=== PATIENT | male | born 1950 | race Caucasian/White ===

== ENCOUNTER 2020-09-03 09:05 | Outpatient (REF) | payer MEDICARE, SELFPAY ==
[2020-09-03 12:45] LABS: Alanine Aminotransferase 15 U/L (0-40); Anion Gap 15 (12-20); Aspartate Amino Transferase 17 U/L (5-37); Blood Urea Nitrogen 16 mg/dL (9-16); Calcium 9.3 mg/dL (8.4-10.2); Carbon Dioxide 23 mmol/L (22-29); Chloride 106 mmol/L (96-108); Cholesterol 158 mg/dL; Estimated Glomerular Filt Rate > 60; Glucose Fasting 149 mg/dL (60-99); HDL Cholesterol 39 mg/dL; LDL Cholesterol Calculated 94 mg/dl; Potassium 4.6 mmol/l (3.3-5.1); Sodium 139 mmol/L (135-145); Triglycerides 127 mg/dL
== END 2020-09-03 09:06 | disposition home or self-care (01) ==
LOC: HO.HMGCLDS 09:05
PROVIDERS: PCP Internal Medicine; Visit Provider Internal Medicine
DX: I10 Essential (primary) hypertension (principal); E78.5 Hyperlipidemia, unspecified; E11.65 Type 2 diabetes mellitus with hyperglycemia
CPT/HCPCS: 80048; 80061; 84450; 84460

== ENCOUNTER 2021-01-17 08:46 | Outpatient (REF) | payer MEDICARE, SELFPAY ==
[2021-01-17 11:29] LABS: Estimated Average Glucose 160 mg/dL; Hemoglobin A1c % 7.2 %
[2021-01-17 11:45] LABS: Alanine Aminotransferase 22 U/L (0-40); Anion Gap 17 (12-20); Aspartate Amino Transferase 18 U/L (5-37); Blood Urea Nitrogen 17 mg/dL (9-16); Calcium 8.8 mg/dL (8.4-10.2); Carbon Dioxide 22 mmol/L (22-29); Chloride 111 mmol/L (96-108); Cholesterol 108 mg/dL; Estimated Glomerular Filt Rate > 60; Glucose Fasting 137 mg/dL (60-99); HDL Cholesterol 30 mg/dL; LDL Cholesterol Calculated 54 mg/dl; Potassium 4.5 mmol/L (3.3-5.1); Sodium 145 mmol/L (135-145); Triglycerides 124 mg/dL
[2021-01-17 12:15] LABS: Creatinine Urine 247.51 mg/dL; Microalbum/Creatinine Ratio Ur 10.1 ug/mg cr
== END 2021-01-17 08:47 | disposition home or self-care (01) ==
LOC: HO.HMGCLDS 08:46
PROVIDERS: PCP Internal Medicine; Visit Provider Internal Medicine
DX: E11.9 Type 2 diabetes mellitus without complications (principal); E78.5 Hyperlipidemia, unspecified; I10 Essential (primary) hypertension
CPT/HCPCS: 36415; 80048; 80061; 82043; 83036; 84450; 84460

== ENCOUNTER 2021-08-23 08:07 | Outpatient (REF) | payer MEDICARE, SELFPAY ==
[2021-08-23 11:22] LABS: Estimated Average Glucose 160 mg/dL; Hemoglobin A1c % 7.2 %
[2021-08-23 11:30] LABS: Alanine Aminotransferase 16 U/L (0-40); Anion Gap 16 (12-20); Aspartate Amino Transferase 19 U/L (5-37); Blood Urea Nitrogen 22 mg/dL (9-16); Calcium 9.3 mg/dL (8.4-10.2); Carbon Dioxide 21 mmol/L (22-29); Chloride 108 mmol/L (96-108); Cholesterol 111 mg/dL; Estimated Glomerular Filt Rate > 60; Glucose Fasting 147 mg/dL (60-99); HDL Cholesterol 29 mg/dL; LDL Cholesterol Calculated 56 mg/dl; Potassium 4.5 mmol/L (3.3-5.1); Sodium 140 mmol/L (135-145); Triglycerides 134 mg/dL
== END 2021-08-23 08:08 | disposition home or self-care (01) ==
LOC: HO.HMGCLDS 08:07
PROVIDERS: PCP Internal Medicine; Visit Provider Internal Medicine
DX: E11.65 Type 2 diabetes mellitus with hyperglycemia (principal); E78.5 Hyperlipidemia, unspecified; I10 Essential (primary) hypertension
CPT/HCPCS: 36415; 80048; 80061; 83036; 84450; 84460

== ENCOUNTER 2021-11-28 08:40 | Outpatient (REF) | payer MEDICARE, SELFPAY ==
[2021-11-28 11:31] LABS: Estimated Average Glucose 151 mg/dL; Hemoglobin A1c % 6.9 %
[2021-11-28 11:35] LABS: Alanine Aminotransferase 20 U/L (0-40); Anion Gap 13 (12-20); Aspartate Amino Transferase 20 U/L (5-37); Blood Urea Nitrogen 21 mg/dL (9-16); Calcium 9.7 mg/dL (8.4-10.2); Carbon Dioxide 26 mmol/L (22-29); Chloride 106 mmol/L (96-108); Cholesterol 153 mg/dL; Estimated Glomerular Filt Rate > 60; Glucose Fasting 148 mg/dL (60-99); HDL Cholesterol 36 mg/dL; LDL Cholesterol Calculated 86 mg/dl; Potassium 4.8 mmol/L (3.3-5.1); Sodium 140 mmol/L (135-145); Triglycerides 155 mg/dL
[2021-11-28 11:39] LABS: Creatinine Urine 184.46 mg/dL; Microalbum/Creatinine Ratio Ur 7.5 ug/mg cr
== END 2021-11-28 08:41 | disposition home or self-care (01) ==
LOC: HO.HMGCLDS 08:40
PROVIDERS: PCP Internal Medicine; Visit Provider Internal Medicine
DX: E11.65 Type 2 diabetes mellitus with hyperglycemia (principal); E78.5 Hyperlipidemia, unspecified; I10 Essential (primary) hypertension
CPT/HCPCS: 36415; 80048; 80061; 82043; 82306; 83036; 84450; 84460

== ENCOUNTER 2022-08-24 09:02 | Outpatient (REF) | payer MEDICARE, SELFPAY ==
[2022-08-24 12:22] LABS: Alanine Aminotransferase 12 U/L (0-40); Anion Gap 16 (12-20); Aspartate Amino Transferase 15 U/L (5-37); Blood Urea Nitrogen 20 mg/dL (9-16); Calcium 9.6 mg/dL (8.4-10.2); Carbon Dioxide 21 mmol/L (22-29); Chloride 109 mmol/L (96-108); Cholesterol 157 mg/dL; Estimated Glomerular Filt Rate > 60; Glucose Fasting 161 mg/dL (60-99); HDL Cholesterol 40 mg/dL; LDL Cholesterol Calculated 89 mg/dl; Potassium 4.5 mmol/L (3.3-5.1); Sodium 141 mmol/L (135-145); Triglycerides 142 mg/dL
[2022-08-24 12:30] LABS: Estimated Average Glucose 163 mg/dL; Hemoglobin A1c % 7.3 %
== END 2022-08-24 09:03 | disposition home or self-care (01) ==
LOC: HO.HMGCLDS 09:02
PROVIDERS: PCP Internal Medicine; Visit Provider Internal Medicine
DX: E11.9 Type 2 diabetes mellitus without complications (principal); E55.9 Vitamin D deficiency, unspecified; I10 Essential (primary) hypertension; E78.5 Hyperlipidemia, unspecified
CPT/HCPCS: 36415; 80048; 80061; 82306; 83036; 84450; 84460

== ENCOUNTER 2023-01-22 08:47 | Outpatient (REF) | payer MEDICARE, SELFPAY ==
[2023-01-22 12:27] LABS: Estimated Average Glucose 148 mg/dL; Hemoglobin A1c % 6.8 %
[2023-01-22 12:39] LABS: Alanine Aminotransferase 18 U/L (0-40); Anion Gap 13 (12-20); Aspartate Amino Transferase 19 U/L (5-37); Blood Urea Nitrogen 22 mg/dL (9-16); Calcium 9.9 mg/dL (8.4-10.2); Carbon Dioxide 24 mmol/L (22-29); Chloride 111 mmol/L (96-108); Cholesterol 147 mg/dL; Estimated Glomerular Filt Rate > 60; Glucose Fasting 145 mg/dL (60-99); HDL Cholesterol 37 mg/dL; LDL Cholesterol Calculated 74 mg/dl; Potassium 4.7 mmol/L (3.3-5.1); Sodium 143 mmol/L (135-145); Triglycerides 183 mg/dL; Vitamin D 25-OH Total 92.5 ng/mL (>30)
[2023-01-22 12:44] LABS: Creatinine Urine 184.96 mg/dL; Microalbum/Creatinine Ratio Ur 11.3 ug/mg cr
== END 2023-01-22 08:48 | disposition home or self-care (01) ==
LOC: HO.HMGCLDS 08:47
PROVIDERS: PCP Internal Medicine; Visit Provider Internal Medicine
DX: E11.9 Type 2 diabetes mellitus without complications (principal); E78.5 Hyperlipidemia, unspecified; I10 Essential (primary) hypertension; E55.9 Vitamin D deficiency, unspecified
CPT/HCPCS: 36415; 80048; 80061; 82043; 82306; 83036; 84450; 84460

== ENCOUNTER 2023-01-26 10:17 | Outpatient (AMB) | payer MEDICARE, SELFPAY ==
[2023-01-26 10:53] VITALS: BP 160/78; PULSE 63; O2SAT 100; BMI 23.3
--- NOTE | 2023-01-26 10:53 | A.OFFPC_ITS ---
Vital Signs 01/26/23 10:53 Height 5 ft 9 in Weight 158 lb 8 oz BMI 23.3 BP 160/78 H Blood Pressure Location Lt brachial Position Sitting Pulse 63 Pulse Source Pulse Oximeter Pulse Oximetry (%) 100 Oxygen Delivery Method Room Air Intake Visit Reasons: follow up when labs done Intake Note: Pt is here today to f/u on labs Allergies hydroxyzine Adverse Reaction (Unknown, Verified 01/26/23 11:14) cough Medication List - Last Reconciled 01/26/23 by Saira Navas MD atorvastatin 20 mg PO .Three times a week blood sugar diagnostic (FreeStyle Lite Strips) check blood sugar once a day cholecalciferol (vitamin D3) 1,250 mcg PO QWEEK 3 months losartan 50 mg PO DAILY 90 days metformin 1,000 mg PO BID 90 days Tobacco use date assessed: 01/26/23 Fall risk assessment: No Falls in past year Last assessed Fall Risk: 01/26/23 HPI follow up when labs done HPI Details 73-year-old male with dyslipidemia, hypertension diabetes mellitus, here today for follow up has been compliant with taking his medications, and tries to follow recommended diet and get regular exercise. He had recent fasting labs done which showed lipids, electrolytes renal function within normal limits, and hemoglobin A1c at 6.3% . [facility] Medical History (Updated 01/26/23 @ 11:33 by Saira Navas MD) Annual visit for general adult medical examination with abnormal findings Diabetes mellitus with hyperglycemia, without long-term current use of insulin Dyslipidemia Essential hypertension Type 2 diabetes mellitus without complication, without long-term current use of insulin Vitamin D deficiency Surgical History Hx of colonoscopy No pertinent past surgical history Family History Father Unknown family medical history Mother HTN (hypertension) Diabetes mellitus Sister No problems noted. Daughter No problems noted. Social History Housing: House Alcohol intake: never Patient Tobacco Use Status: Never used Tobacco e-Cigarette/Vaping Use: Never Used Current occupational status: retired Cognitive needs: No Hearing needs: No Vision needs: Yes Questionnaire Thrive Questionnaire Date Thrive assessed: 12/02/21 AUDIT C Alcohol Use Questionnaire (AUDIT-C) 1. How often do you have a drink containing alcohol?: Monthly or less 2. How many drinks containing alcohol do you have on a typical day when you are drinking?: 1 or 2 3. How often do you have six or more drinks on one occasion?: Never Total Score: 1 LESA-7 AMB Questionnaire LESA-7 Date LESA - 7 assessed: 12/02/21 Source: Developed by Drs. Francisco Norman, Arin Walsh, Kal Timmons and colleagues, with an educational azucena from [employer]. Review of Systems Const Denies body aches, Denies fatigue, Denies fever(s), Denies headache(s) and Denies weakness Eyes Denies change in vision ENT Denies dizziness, Denies headache(s), Denies nasal congestion, Denies nasal discharge and Denies sore throat Card Denies chest pain, Denies lightheadedness, Denies palpitations and Denies dyspnea Resp Denies chest congestion, Denies cough, Denies dyspnea and Denies wheezing GI Denies abdominal pain, Denies change in bowel habits and Denies heartburn Denies dysuria, Denies urinary frequency and Denies urinary urgency Musc Denies back pain, Denies myalgias, Denies arthralgias and Denies joint swelling Skin/Breast Denies lesions and Denies rash Neuro Denies dizziness, Denies headache(s) and Denies weakness Psych Reports no additional complaints Endo Denies fatigue, Denies polydipsia, Denies polyuria and Denies palpitations Roddy/Lymph Reports no additional complaints Aller/Immun Denies seasonal rhinorrhea and Denies wheezing Physical exam (Primary Care) Vital Signs: Last Vital Signs Pulse 63 01/26/23 10:53 BP 160/78 H 01/26/23 10:53 Pulse Ox 100 01/26/23 10:53 Oxygen Delivery Method Room Air 01/26/23 10:53 BMI result Body Mass Index 23.3 Tobacco/Smoking Status: Tobacco use Status Tobacco use date assessed 01/26/23 01/26/23 10:58 Patient Tobacco Use Status Never used Tobacco 01/26/23 10:58 e-Cigarette/Vaping Use Never Used 01/26/23 10:58 Thrive Assessment: Date of Thrive Assessment Date Thrive assessed 12/02/21 01/26/23 10:58 Const General: healthy appearing, comfortable and no acute distress Nutritional Appearance: average body habitus Orientation/consciousness: patient oriented x3 Limitations: no limitations HENMT Head: Yes atraumatic Ears: hearing grossly normal bilaterally General nose exam: Normal external nose present and No nasal discharge present Face and sinus: Yes face symmetric Mouth: Normal oral and palatal mucosa present and moist mucous membranes Eyes General: appearance normal, both eyes and all related structures Neck Neck: Yes full ROM, Yes no lymphadenopathy and Yes supple Chest Chest palpation & inspection: normal inspection of the chest Resp Effort & Inspection: normal respiratory effort and able to speak in complete sentences Auscultation: clear to auscultation bilaterally Cardio Rate: regular rate Rhythm: regular rhythm Heart sounds: S1 normal heart sound present and S2 normal heart sound present GI Other: Normal bowel sounds, soft, nontender, no mass palpated Auscultation: normal bowel sounds General: Yes no CVA tenderness Male General Exam: Yes normal external exam Back/Spine/Pelvis Back: no CVA tenderness and No back tenderness Skin General skin exam: no rashes or lesions noted Neuro General: patient oriented x3, gait normal, moves all extremities, Normal light touch and pain sensation, no focal motor deficits, CN's II-XI intact bilaterally and normal sensation to monofilament Extrem Other: No gross bone deformity, or joint swelling seen, sensation intact by monofilament testing in both feet General: Yes full ROM, Yes no joint enlargement, Yes no pedal edema and Yes normal gait Psych Appearance: grossly normal and well kempt Mental Status: mental status grossly normal Speech and movement: Normal speech and movement present Affect: normal affect Attitude: cooperative Thought process: Normal thought process present Immunizations pneumoc 20-elena conj-dip cr(PF) Performing Provider: Saira Navas MD Administered by: Lizet Culver CMA on 01/26/23 11:41 Dose Route Admin Location Lot Number Expiration Date [place] [employer] 0.5 mL IM Left Deltoid [id number] 05/24/24 7024-2378-54 [employer] VIS Given Date VIS Provided VIS Publication Date 01/26/23 Single Vaccine 21 Eligibility Eligibility Date Funding Source Not VFC Eligible 01/26/23 Private Results Reviewed Results Reviewed: ENTERED: 01/22/23-[address]: ORDERED: Met Prof Fast, AST, ALT, Lipid Panel, Vitamin D 25-OH Test Result Flag Reference Site Sodium 143 135-145 mmol/L Potassium 4.7 3.3-5.1 mmol/L CL 111 H 96-108 mmol/L CO2 24 22-29 mmol/L Gap 13 12-20 BUN 22 H 9-16 mg/dL Creat 1.05 0.5-1.4 mg/dL EGFR > 60 NOTE: For [place] individuals, multiply the result by 1.210. Chronic Kidney Disease: Estimated GFR < 60 mL/min/1.73m2 Severe Kidney Disease: Estimated GFR < 15 mL/min/1.73m2 FBS 145 H 60-99 mg/dL A fasting glucose of 126 mg/dl or greater on more than one occasion is considered diagnostic of diabetes. CA 9.9 8.4-10.2 mg/dL AST (GOT) 19 5-37 U/L ALT (GPT) 18 0-40 U/L Triglyceride 183 mg/dL Desirable Triglyceride: less than 150 mg/dL Borderline High Triglyceride 150-199 mg/dL High Triglyceride: 200-499 mg/dL Very High Triglyceride: greater than or equal to 5OO mg/dL Chol 147 mg/dL Desirable Cholesterol: less than 200 mg/dL Borderline High Cholesterol: 200-239 mg/dL High Cholesterol: greater than 239 mg/dL LDL Calculated 74 mg/dl Desirable LDL: less than 100 mg/dL Near Optimal/Above Optimal LDL: 110-129 mg/dL Borderline High LDL: 130-159 mg/dL High LDL: 160-189 mg/dL Very High LDL: greater than or equal to 190 mg/dL HDL 37 mg/dL Desirable HDL: greater than 40 mg/dL Note: This HDL assay may give artificially low results in patients with liver disease. Vit D 25-OH Tot 92.5 >30 ng/mL Health Based Reference Values* < 20 ng/mL Deficient 20-30 ng/mL Insufficient > 30 ng/mL Sufficient Laboratory Tests 08/24/22 01/22/23 09:13 08:51 Estimat Average Glucose 163 148 Hemoglobin A1c % 7.3 6.8 Laboratory Tests 01/22/23 08:51 Urine Creatinine 184.96 Urine Microalbumin 21.0 Microalb/Creat Ratio 11.3 Assessment and Plan Assessment & Plan (1) Type 2 diabetes mellitus without complication, without long-term current use of insulin: Code(s): E11.9 - Type 2 diabetes mellitus without complications Plan: Recent lab results reviewed with patient, with sugar and hemoglobin A1c stable and at goal . continue metformin 1000 mg twice a day, and continue to check fasting blood sugar at home, maintain log and bring to next appointment for review. Reinforced diabetic diet and regular exercise with patient. Counseled regarding importance of yearly diabetes retinopathy screening. Patient advised to inspect feet daily, for any signs of injury, callus or infection. Compliance with diet and regular exercise again stressed. Blood pressure goal is less than 130/80, goal LDL is less than 100 and goal hemoglobin A1c is less than 7% follow-up appointment made in--6-months, after fasting labs done. Advised to get COVID bivalent booster and Prevnar 20 given today (2) Essential hypertension: Code(s): I10 - Essential (primary) hypertension Plan: Blood pressure not at goal of less than 130/80. Increase losartan dose to 100 mg taken once a day in a.m. Reinforced importance of following a low sodium diet, getting regular exercise, and lowering stress levels.. Schedule appointment to see nurse to check blood pressure 1-2 weeks (3) Dyslipidemia: Code(s): E78.5 - Hyperlipidemia, unspecified Plan: Reviewed recent fasting lipid profile with patient with levels at goal . Continue with atorvastatin 20 mg taken 3 times a week , in addition to adherence to low-cholesterol diet and regular exercise, at least 30 minutes 3 to 4 times a week. Advised patient to make healthy food choices, eat more fruits, vegetables, whole grains, wild caught fish and low-fat dairy. Limit amount of meat and fried or fatty food products, as well as processed foods and fast foods. Follow-up scheduled with repeat fasting lipid panel in 6 months. Orders: Orders Alanine Aminotransferase 6 Months E11.9 - Type 2 diabetes mellitus without complications, I10 - Essential (primary) hypertension, E78.5 - Hyperlipidemia, unspecified Aspartate Amino Transferase 6 Months E11.9 - Type 2 diabetes mellitus without complications, I10 - Essential (primary) hypertension, E78.5 - Hyperlipidemia, unspecified Lipid Panel 6 Months E11.9 - Type 2 diabetes mellitus without complications, I10 - Essential (primary) hypertension, E78.5 - Hyperlipidemia, unspecified Basic Metabolic Panel Fasting 6 Months E11.9 - Type 2 diabetes mellitus without complications, I10 - Essential (primary) hypertension, E78.5 - Hyperlipidemia, unspecified Hemoglobin A1c 6 Months E11.9 - Type 2 diabetes mellitus without complications, I10 - Essential (primary) hypertension, E78.5 - Hyperlipidemia, unspecified Pneumococcal 20 Immunization 01/26/23 Z23 - Encounter for immunization Medications: Changed From metformin 1,000 mg PO BID 90 days 180 tabs 3RF To metformin 1,000 mg PO BID 180 tabs 3RF 90 days From losartan Take with losartan 25mg every day 50 mg PO DAILY 90 days 90 tabs 1RF I10 - Essential (primary) hypertension To losartan Take with losartan 25mg every day 100 mg PO DAILY 90 tabs 3RF 90 days I10 - Essential (primary) hypertension Coding Level of Care Code Est Pt Level 4 (90747) Diagnoses Type 2 diabetes mellitus without complication, without long-term current use of insulin E11.9 Essential hypertension I10 Dyslipidemia E78.5
== END 2023-01-26 12:38 | disposition home or self-care (01) ==
LOC: HO.HMGC 10:17
PROVIDERS: PCP Internal Medicine; Visit Provider Internal Medicine
DX: E11.9 Type 2 diabetes mellitus without complications (principal); I10 Essential (primary) hypertension; E78.5 Hyperlipidemia, unspecified
CPT/HCPCS: 90471; 90677; 99214

== ENCOUNTER 2023-09-30 08:30 | Outpatient (REF) | payer MEDICARE, SELFPAY ==
[2023-09-30 11:46] LABS: Estimated Average Glucose 143 mg/dL; Hemoglobin A1c % 6.6 % (<6.0)
== END 2023-09-30 08:31 | disposition home or self-care (01) ==
LOC: HO.HMGCLDS 08:30
PROVIDERS: PCP Internal Medicine; Visit Provider Internal Medicine
DX: E11.9 Type 2 diabetes mellitus without complications (principal); I10 Essential (primary) hypertension; E78.5 Hyperlipidemia, unspecified
CPT/HCPCS: 36415; 80048; 80061; 83036; 84450; 84460

== ENCOUNTER 2023-10-05 09:46 | Outpatient (AMB) | payer MEDICARE, SELFPAY ==
--- NOTE | 2023-10-05 10:05 | A.OFFPC_ITS ---
Vital Signs 10/05/23 10:06 Height 5 ft 9 in Weight 154 lb BMI 22.7 BP 140/88 H Blood Pressure Location Lt brachial Position Sitting Pulse 72 Pulse Source Pulse Oximeter Pulse Oximetry (%) 98 Oxygen Delivery Method Room Air Intake Visit Reasons: Annual PE Intake Note: Pt is here for his Annual PE Allergies hydroxyzine Adverse Reaction (Unknown, Verified 10/05/23 10:44) cough Medication List - Last Reconciled 10/05/23 by Saira Navas MD atorvastatin 20 mg PO .Three times a week blood sugar diagnostic (FreeStyle Lite Strips) check blood sugar once a day losartan 100 mg PO DAILY 90 days metformin 1,000 mg PO BID 90 days Tobacco use date assessed: 10/05/23 Fall risk assessment: No Falls in past year Last assessed Fall Risk: 10/05/23 Dental Screening Dental Screen Date: 10/05/23 Did you have a dental visit in the last 12 months?: Yes Did you have a dental problem in the last 6 months where you did not have access to dental care?: No Was dental information given to patient?: Patient has dentist HPI Annual PE HPI Details 73-year-old male here today for his phys ical exam. He has diabetes mellitus, hyperlipidemia, hypertension, he compliant with taking all his medications, and has been following recommended diet. He stays active, has had his pneumonia vaccine but declines getting COVID booster or flu shots. He is up-to-date with his screening colonoscopy done [place] [address] Sy, due again next year. [facility] Medical History Refused influenza vaccine Vitamin D deficiency Diabetes mellitus with hyperglycemia, without long-term current use of insulin Annual visit for general adult medical examination with abnormal findings Type 2 diabetes mellitus without complication, without long-term current use of insulin Essential hypertension Dyslipidemia Surgical History Hx of colonoscopy No pertinent past surgical history Family History Father Unknown family medical history Mother HTN (hypertension) Diabetes mellitus Sister No problems noted. Daughter No problems noted. Social History Housing: House Alcohol intake: never Patient Tobacco Use Status: Never used Tobacco e-Cigarette/Vaping Use: Never Used Current occupational status: retired Cognitive needs: No Hearing needs: No Vision needs: Yes Questionnaire PHQ-9 Over the last 2 weeks, how often have you been bothered by any of the following problems? 1. Little interest or pleasure in doing things: more than half the days 2. Feeling down, depressed, or hopeless: not at all 3. Trouble falling or staying asleep, or sleeping too much: not at all 4. Feeling tired or having little energy: not at all 5. Poor appetite or overeating: not at all 6. Feeling bad about yourself - or that you are a failure or have let yourself or your family down: not at all 7. Trouble concentrating on things, such as reading the newspaper or watching television: not at all 8. Moving or speaking so slowly that other people could have noticed. Or the opposite - being so fidgety or restless that you have been moving around a lot more than usual: not at all 9. Thoughts that you would be better off or of hurting yourself in some way: not at all Total score: 2 Depression Screening Interpretation: Negative Depression Screening Done: Yes 42891 - PHQ-9 Billing: Yes Source: Developed by Drs. Francisco Norman, Arin Walsh, Kal Timmons and colleagues, with an educational azucena from [employer]. Thrive Questionnaire Date Thrive assessed: 10/05/23 I am a: Patient What is your living situation today?: I have a steady place to live Within the past 12 months, did the food you bought not last and you didn't have the money to get more?: Never true Within the past 12 months, did you worry whether your food would run out before you got money to buy more?: Never true Do you have trouble paying for medicines?: No Do you have trouble getting transportation to medical appointments?: No Do you have trouble paying your heating and electricity bill?: No Do you have trouble taking care of your child, family member or friend?: No Do you have trouble with day-to-day activities such as bathing, preparing meals, shopping, managing finances, etc.?: No Are you currently unemployed and looking for a job?: No Are you interested in more education?: No AUDIT C Alcohol Use Questionnaire (AUDIT-C) 1. How often do you have a drink containing alcohol?: Monthly or less 2. How many drinks containing alcohol do you have on a typical day when you are drinking?: 1 or 2 3. How often do you have six or more drinks on one occasion?: Never Total Score: 1 LESA-7 AMB Questionnaire LESA-7 Date LESA - 7 assessed: 10/05/23 Feeling nervous, anxious, or on edge: 0 = Not at all Not being able to stop or control worryin = Not at all Worrying too much about different things: 1 = Several days Trouble relaxin = Not at all Being so restless that it is hard to sit still: 0 = Not at all Becoming easily annoyed or irritable: 0 = Not at all Feeling afraid as if something awful might happen: 0 = Not at all Total LESA-7 score (0-4 normal; 5-9 mild; 10-14 moderate; 15-21 severe): 1 Source: Developed by Drs. Francisco Norman, Arin Walsh, Kal Timmons and colleagues, with an educational azucena from [employer]. LESA-7 Assessment Billing LESA-7 Assessment Tool: LESA-7 Assessment 04396 Review of Systems Const Denies body aches, Denies fatigue, Denies fever(s), Denies headache(s) and Denies weakness Eyes Details: Up-to-date with his diabetes retinopathy screening, goes to [facility] eye care Denies change in vision ENT Denies dizziness, Denies headache(s), Denies nasal congestion, Denies nasal discharge and Denies sore throat Card Denies chest pain, Denies lightheadedness, Denies palpitations and Denies dyspnea Resp Denies chest congestion, Denies cough, Denies dyspnea and Denies wheezing GI Denies abdominal pain, Denies change in bowel habits and Denies heartburn Denies dysuria, Denies urinary frequency and Denies urinary urgency Musc Denies back pain, Denies myalgias, Denies arthralgias and Denies joint swelling Skin/Breast Denies lesions and Denies rash Neuro Denies dizziness, Denies headache(s) and Denies weakness Psych Reports no additional complaints Endo Denies fatigue, Denies polydipsia, Denies polyuria and Denies palpitations Roddy/Lymph Reports no additional complaints Aller/Immun Denies seasonal rhinorrhea and Denies wheezing Physical exam (Primary Care) Vital Signs: Last Vital Signs Pulse 72 10/05/23 10:06 BP 140/88 H 10/05/23 10:06 Pulse Ox 98 10/05/23 10:06 Oxygen Delivery Method Room Air 10/05/23 10:06 BMI result Body Mass Index 22.7 Tobacco/Smoking Status: Tobacco use Status Tobacco use date assessed 10/05/23 10/05/23 10:11 Patient Tobacco Use Status Never used Tobacco 10/05/23 10:11 e-Cigarette/Vaping Use Never Used 10/05/23 10:11 Depression Screening Interpretation: Negative Thrive Assessment: Date of Thrive Assessment Date Thrive assessed 12/02/21 10/05/23 10:11 Const General: healthy appearing, comfortable and no acute distress Nutritional Appearance: average body habitus Orientation/consciousness: patient oriented x3 Limitations: no limitations HENMT Head: Yes atraumatic Ears: hearing grossly normal bilaterally General nose exam: Normal external nose present and No nasal discharge present Face and sinus: Yes face symmetric Mouth: Normal oral and palatal mucosa present and moist mucous membranes Eyes General: appearance normal, both eyes and all related structures Neck Neck: Yes full ROM, Yes no lymphadenopathy and Yes supple Chest Chest palpation & inspection: normal inspection of the chest Resp Effort & Inspection: normal respiratory effort and able to speak in complete sentences Auscultation: clear to auscultation bilaterally Cardio Rate: regular rate Rhythm: regular rhythm Heart sounds: S1 normal heart sound present and S2 normal heart sound present GI Other: Normal bowel sounds, soft, nontender, no mass palpated Auscultation: normal bowel sounds General: Yes no CVA tenderness Male General Exam: Yes normal external exam Back/Spine/Pelvis Back: no CVA tenderness and No back tenderness Skin General skin exam: no rashes or lesions noted Neuro General: patient oriented x3, gait normal, moves all extremities, Normal light touch and pain sensation, no focal motor deficits, CN's II-XI intact bilaterally and normal sensation to monofilament Extrem Other: No gross bone deformity, or joint swelling seen, sensation intact by monofilament testing in both feet General: Yes full ROM, Yes no joint enlargement, Yes no pedal edema and Yes normal gait Psych Appearance: grossly normal and well kempt Mental Status: mental status grossly normal Speech and movement: Normal speech and movement present Affect: normal affect Attitude: cooperative Thought process: Normal thought process present Results Reviewed Results Reviewed: lacy: Erika,Bhavesh O Age/Sex: 73/M : 1950 Unit#: [id number] Attend Dr: Saira Navas MD Re09/30/23 Status: DEP [facility] Disch: SPEC : [id number] VONNIE: 09/30/23 STATUS: COMP REQ : [id number] RECD: 09/30/[address]: Saira Navas MD COMP: 09/30/23 ENTERED: 09/30/[address] [facility] [address]: ORDERED: Hgb A1c Test Result Flag Reference Site A1c % 6.6 H <6.0 % Hemoglobin A1C Reference Range Adults: 4.8 - 6.0 % Non diabetic: < 6.0 % Goal: < 7.0 % Additional Action Suggested: > 8.0 % Note: Hemoglobin A1c results are invalid for patients with abnormal amounts of HbF. Blood transfusions may impact the HbA1c concentration in the patient sample. Est. Avg. Gluc 143 mg/dL eAG = Estimated average glucose which is %A1C expressed as average glucose, using the formula of the [id number] Average Glucose study (ADAG), Diabetes Care, Vol.31,#8, 2007 Assessment and Plan Assessment & Plan (1) Annual visit for general adult medical examination with abnormal findings: Code(s): Z00.01 - Encounter for general adult medical examination with abnormal findings Plan: Will check appropriate labs, labs ordered previously had a hemolyzed specimen, will recheck again in January 2023 continue red dental visit every 6 months and regular eye exams, currently up-to-date sees yearly at [facility]. Take adequate calcium in diet and vitamin-D 3 at 2000 IU per cap once a day, in addition to weight-bearing exercises to help maintain good muscle tone and weight control. Instructed to do physical exam to check for any mass. He sees podiatry for diabetic foot care yearly up-to-date with his pneumonia vaccine but does [facility]man's getting flu shot or the COVID booster. Reminded to get his shingles vaccination. Colonoscopy not due until next year with Dr. Sy. (2) Type 2 diabetes mellitus without complication, without long-term current use of insulin: Code(s): E11.9 - Type 2 diabetes mellitus without complications Plan: Recent lab results reviewed with patient, with sugar and hemoglobin A1c stable and at goal. Continue with metformin 1000 mg 1 tablet twice a day with meals. continue to check fasting blood sugar at home, maintain log and bring to next appointment for review. Reinforced diabetic diet and regular exercise with patient. Up-to-date with yearly diabetes retinopathy screening. Patient advised to inspect feet daily, for any signs of injury, callus or infection. Compliance with diet and regular exercise again stressed. Blood pressure goal is less than 130/80, goal LDL is less than 100 and goal hemoglobin A1c is less than 7% follow-up appointment made in--4-months, after fasting labs done. (3) Essential hypertension: Code(s): I10 - Essential (primary) hypertension Plan: Blood pressure not at goal of less than 130/80. Losartan discontinued, and switched to losartan-HCT 100-12.5 mg per tablet to take once a day in a.m.. Reinforced importance of following a low-salt diet and getting regular exercise, will see him back for follow-up in 4 month (4) Dyslipidemia: Code(s): E78.5 - Hyperlipidemia, unspecified Plan: Reviewed recent fasting lipid profile with patient with levels within normal . Continue with atorvastatin 20 mg taken 1 tablet 3 times a week , in addition to adherence to low-cholesterol diet and regular exercise, at least 30 minutes 3 to 4 times a week. Advised patient to make healthy food choices, eat more fruits, vegetables, whole grains, wild caught fish and low-fat dairy. Limit amount of meat and fried or fatty food products, as well as processed foods and fast foods. Follow-up scheduled with repeat fasting lipid panel in 4 months. (5) Refused influenza vaccine: Code(s): Z28.21 - Immunization not carried out because of patient refusal (6) COVID-19 vaccination declined: Code(s): Z28.21 - Immunization not carried out because of patient refusal Orders: Orders Alanine Aminotransferase 01/31/24 E11.9 - Type 2 diabetes mellitus without complications, E78.5 - Hyperlipidemia, unspecified, I10 - Essential (primary) hypertension Basic Metabolic Panel Fasting 01/31/24 E11.9 - Type 2 diabetes mellitus without complications, E78.5 - Hyperlipidemia, unspecified, I10 - Essential (primary) hypertension Lipid Panel 01/31/24 E11.9 - Type 2 diabetes mellitus without complications, E78.5 - Hyperlipidemia, unspecified, I10 - Essential (primary) hypertension Vitamin D 25-OH Total 01/31/24 E11.9 - Type 2 diabetes mellitus without complications, E78.5 - Hyperlipidemia, unspecified, I10 - Essential (primary) hypertension Hemoglobin A1c 01/31/24 E11.9 - Type 2 diabetes mellitus without complications, E78.5 - Hyperlipidemia, unspecified, I10 - Essential (primary) hypertension, Z12.5 - Encounter for screening for malignant neoplasm of prostate Aspartate Amino Transferase 01/31/24 E11.9 - Type 2 diabetes mellitus without complications, E78.5 - Hyperlipidemia, unspecified, I10 - Essential (primary) hypertension Microalbumin, Random (w Creat) 01/31/24 E11.9 - Type 2 diabetes mellitus without complications, E78.5 - Hyperlipidemia, unspecified, I10 - Essential (primary) hypertension PSA,Total (Free>4and<10) 01/31/24 Z12.5 - Encounter for screening for malignant neoplasm of prostate Medications: New losartan-hydrochlorothiazide 100-12.5 mg 1 tab PO DAILY 90 tabs 2RF Refilled metformin 1,000 mg PO BID 90 days 180 tabs 3RF atorvastatin 20 mg PO .Three times a week 36 tabs 3RF blood sugar diagnostic (FreeStyle Lite Strips) check blood sugar once a day 100 ea 4RF E11.65 - Type 2 diabetes mellitus with hyperglycemia Discontinued losartan Discontinued Reason: Doctor's Order 100 mg PO DAILY 90 days 90 tabs 3RF I10 - Essential (primary) hypertension Coding Level of Care Code Est Pt Prev Care >65y(72923) Diagnoses Annual visit for general adult medical examination with abnormal findings Z00.01 Type 2 diabetes mellitus without complication, without long-term current use of insulin E11.9 Essential hypertension I10 Dyslipidemia E78.5 Refused influenza vaccine Z28.21 COVID-19 vaccination declined Z28.21 Additional Codes LESA-7 Assessment Billing - LESA-7 Assessment Tool: LESA-7 Assessment 02070 ([id number])
[2023-10-05 10:06] VITALS: BP 140/88; PULSE 72; O2SAT 98; BMI 22.7
== END 2023-10-05 11:09 | disposition home or self-care (01) ==
PROVIDERS: PCP Internal Medicine; Visit Provider Internal Medicine
DX: Z00.01 Encounter for general adult medical examination with abnormal findings (principal); E11.69 Type 2 diabetes mellitus with other specified complication; I10 Essential (primary) hypertension; E78.5 Hyperlipidemia, unspecified; Z28.21 Immunization not carried out because of patient refusal
CPT/HCPCS: 99214; 99397

== ENCOUNTER 2024-02-05 08:11 | Outpatient (REF) | payer MEDICARE, SELFPAY ==
[2024-02-05 11:42] LABS: Estimated Average Glucose 163 mg/dL; Hemoglobin A1c % 7.3 % (<6.0)
[2024-02-05 11:57] LABS: Alanine Aminotransferase 16 U/L (0-40); Anion Gap 11 (12-20); Aspartate Amino Transferase 17 U/L (5-37); Blood Urea Nitrogen 23 mg/dL (9-16); Calcium 9.5 mg/dL (8.4-10.2); Carbon Dioxide 23 mmol/L (22-29); Chloride 108 mmol/L (96-108); Cholesterol 135 mg/dL (<200); Estimated Glomerular Filt Rate > 60; Glucose Fasting 156 mg/dL (60-99); HDL Cholesterol 36 mg/dL (>40); LDL Cholesterol Calculated 73 mg/dL (<100); Potassium 4.6 mmol/L (3.3-5.1); Sodium 137 mmol/L (135-145); Triglycerides 131 mg/dL (<150)
[2024-02-05 12:03] LABS: Creatinine Urine 110.92 mg/dL; Microalbum/Creatinine Ratio Ur 9.9 ug/mg cr (<30)
[2024-02-05 12:07] LABS: PSA,Total (Free>4and<10) 2.87 ng/mL (0.00-4.00)
[2024-02-05 12:14] LABS: Vitamin D 25-OH Total 33.5 ng/mL (>30)
== END 2024-02-05 08:12 | disposition home or self-care (01) ==
LOC: HO.HMGCLDS 08:11
PROVIDERS: PCP Internal Medicine; Visit Provider Internal Medicine
DX: Z12.5 Encounter for screening for malignant neoplasm of prostate (principal); E11.9 Type 2 diabetes mellitus without complications; I10 Essential (primary) hypertension; E78.5 Hyperlipidemia, unspecified
CPT/HCPCS: 36415; 80048; 80061; 82043; 82306; 82570; 83036; 84153; 84450; 84460

== ENCOUNTER 2024-02-09 11:25 | Outpatient (AMB) | payer MEDICARE, SELFPAY ==
[2024-02-09 11:26] VITALS: BP 120/70; PULSE 71; O2SAT 100; BMI 22.4
--- NOTE | 2024-02-09 11:26 | A.OFFPC_ITS ---
Vital Signs 02/09/24 11:26 Height 5 ft 9 in Weight 152 lb BMI 22.4 BP 120/70 Blood Pressure Location Lt brachial Position Sitting Pulse 71 Pulse Source Pulse Oximeter Pulse Oximetry (%) 100 Oxygen Delivery Method Room Air Intake Visit Reasons: 4 month follow up Intake Note: Pt is here today for his 4 months f/u Allergies hydroxyzine Adverse Reaction (Unknown, Verified 02/09/24 11:44) cough Medication List - Last Reconciled 02/09/24 by Saira Navas MD atorvastatin 20 mg PO .Three times a week blood sugar diagnostic (FreeStyle Lite Strips) check blood sugar once a day losartan-hydrochlorothiazide 100-12.5 mg 1 tab PO DAILY metformin 1,000 mg PO BID 90 days Tobacco use date assessed: 02/09/24 Fall risk assessment: No Falls in past year Last assessed Fall Risk: 02/09/24 Dental Screening Dental Screen Date: 02/09/24 Did you have a dental visit in the last 12 months?: Yes Did you have a dental problem in the last 6 months where you did not have access to dental care?: No Was dental information given to patient?: Patient has dentist HPI 4 month follow up HPI Details 73-year-old male with diabetes mellitus, hyperlipidemia and hypertension here today for his follow-up. He has been taking his medicines as directed but has not been exercising as much as he was with during the summertime. Admits as well that he has not been strictly following his diet. Latest labs were within normal limits except for elevated hemoglobin A1c at 7.3%. [facility] Medical History (Updated 02/09/24 @ 22:38 by Saira Navas MD) Diabetes mellitus with hyperglycemia, without long-term current use of insulin Refused influenza vaccine Vitamin D deficiency Type 2 diabetes mellitus without complication, without long-term current use of insulin Essential hypertension Dyslipidemia Surgical History Hx of colonoscopy No pertinent past surgical history Family History Father Unknown family medical history Mother HTN (hypertension) Diabetes mellitus Sister No problems noted. Daughter No problems noted. Social History Housing: House Alcohol intake: never Patient Tobacco Use Status: Never used Tobacco e-Cigarette/Vaping Use: Never Used Current occupational status: retired Cognitive needs: No Hearing needs: No Vision needs: Yes Questionnaire PHQ-9 Over the last 2 weeks, how often have you been bothered by any of the following problems? 1. Little interest or pleasure in doing things: not at all 2. Feeling down, depressed, or hopeless: not at all 3. Trouble falling or staying asleep, or sleeping too much: not at all 4. Feeling tired or having little energy: not at all 5. Poor appetite or overeating: not at all 6. Feeling bad about yourself - or that you are a failure or have let yourself or your family down: not at all 7. Trouble concentrating on things, such as reading the newspaper or watching television: not at all 8. Moving or speaking so slowly that other people could have noticed. Or the opposite - being so fidgety or restless that you have been moving around a lot more than usual: not at all 9. Thoughts that you would be better off or of hurting yourself in some way: not at all Total score: 0 Depression Screening Interpretation: Negative Depression Screening Done: Yes 77841 - PHQ-9 Billing: Yes Source: Developed by Drs. Francisco Norman, Arin Walsh, Kal Timmons and colleagues, with an educational azucena from [employer] a [employer] of [employer]. Thrive Questionnaire Date Thrive assessed: 02/09/24 I am a: Patient What is your living situation today?: I have a steady place to live Within the past 12 months, did the food you bought not last and you didn't have the money to get more?: Never true Within the past 12 months, did you worry whether your food would run out before you got money to buy more?: Never true Do you have trouble paying for medicines?: No Do you have trouble getting transportation to medical appointments?: No Do you have trouble paying your heating and electricity bill?: No Do you have trouble taking care of your child, family member or friend?: No Do you have trouble with day-to-day activities such as bathing, preparing meals, shopping, managing finances, etc.?: No Are you currently unemployed and looking for a job?: No Are you interested in more education?: No THRIVE Score: 0 AUDIT C Alcohol Use Questionnaire (AUDIT-C) 1. How often do you have a drink containing alcohol?: Monthly or less 2. How many drinks containing alcohol do you have on a typical day when you are drinking?: 1 or 2 3. How often do you have six or more drinks on one occasion?: Never Total Score: 1 LESA-7 AMB Questionnaire LESA-7 Date LESA - 7 assessed: 02/09/24 Feeling nervous, anxious, or on edge: 0 = Not at all Not being able to stop or control worryin = Not at all Worrying too much about different things: 0 = Not at all Trouble relaxin = Not at all Being so restless that it is hard to sit still: 0 = Not at all Becoming easily annoyed or irritable: 0 = Not at all Feeling afraid as if something awful might happen: 0 = Not at all Total LESA-7 score (0-4 normal; 5-9 mild; 10-14 moderate; 15-21 severe): 0 Source: Developed by Drs. Francisco Norman, Arin Walsh, Kal Timmons and colleagues, with an educational azucena from [employer] a [employer]. LESA-7 Assessment Billing LESA-7 Assessment Tool: LESA-7 Assessment 27641 Review of Systems Const Denies body aches, Denies fatigue, Denies fever(s), Denies headache(s) and Denies weakness Eyes Details: Up-to-date with his diabetes retinopathy screening, goes to [facility] eye care Denies change in vision ENT Denies dizziness and Denies headache(s) Card Denies chest pain, Denies lightheadedness, Denies palpitations and Denies dyspnea Resp Denies chest congestion, Denies cough, Denies dyspnea and Denies wheezing GI Denies abdominal pain, Denies change in bowel habits and Denies heartburn Denies dysuria, Denies urinary frequency and Denies urinary urgency Musc Denies back pain, Denies myalgias, Denies arthralgias and Denies joint swelling Neuro Denies dizziness, Denies headache(s) and Denies weakness Endo Denies fatigue, Denies polydipsia, Denies polyuria and Denies palpitations Roddy/Lymph Reports no additional complaints Aller/Immun Denies seasonal rhinorrhea and Denies wheezing Physical exam (Primary Care) Vital Signs: Last Vital Signs Pulse 71 02/09/24 11:26 BP 120/70 02/09/24 11:26 Pulse Ox 100 02/09/24 11:26 Oxygen Delivery Method Room Air 02/09/24 11:26 BMI result Body Mass Index 22.4 Tobacco/Smoking Status: Tobacco use Status Tobacco use date assessed 02/09/24 02/09/24 11:35 Patient Tobacco Use Status Never used Tobacco 02/09/24 11:30 e-Cigarette/Vaping Use Never Used 02/09/24 11:30 PHQ-9: PHQ-9 Score PHQ-9: Total score 0 02/09/24 12:03 Depression Screening Interpretation: Negative Thrive Assessment: Date of Thrive Assessment Date Thrive assessed 02/09/24 02/09/24 12:03 Const General: healthy appearing, comfortable and no acute distress Nutritional Appearance: average body habitus Orientation/consciousness: patient oriented x3 HENMT Head: Yes atraumatic General nose exam: Normal external nose present Face and sinus: Yes face symmetric Mouth: Normal oral and palatal mucosa present and moist mucous membranes Eyes General: appearance normal, both eyes and all related structures Neck Neck: Yes full ROM, Yes no lymphadenopathy and Yes supple Chest Chest palpation & inspection: normal inspection of the chest Resp Effort & Inspection: normal respiratory effort and able to speak in complete sentences Auscultation: clear to auscultation bilaterally Cardio Rate: regular rate Rhythm: regular rhythm Heart sounds: S1 normal heart sound present and S2 normal heart sound present GI Other: Normal bowel sounds, soft, nontender, no mass palpated Auscultation: normal bowel sounds General: Yes no CVA tenderness Male General Exam: Yes normal external exam Back/Spine/Pelvis Back: no CVA tenderness and No back tenderness Skin General skin exam: no rashes or lesions noted Neuro General: patient oriented x3, gait normal, moves all extremities, Normal light touch and pain sensation, no focal motor deficits, CN's II-XI intact bilaterally and normal sensation to monofilament Extrem Other: No gross bone deformity, or joint swelling seen, sensation intact by monofilament testing in both feet General: Yes full ROM, Yes no joint enlargement, Yes no pedal edema and Yes normal gait Results Reviewed Results Reviewed: Name: ErikaBhavesh Shama Age/Sex: 73/M : 1950 Unit#: [id number] Attend Dr: Saira Navas MD Re02/05/24 Status: DEP REF Location: [facility] Disch: SPEC : [id number] VONNIE: 02/05/24 STATUS: COMP REQ : [id number] RECD: 02/05/24-[address]: Saira Navas MD COMP: 02/05/24 ENTERED: 02/05/24 [facility] DR: ORDERED: Met Prof Fast, AST, ALT, Lipid Panel, Vitamin D 25-OH Test Result Flag Reference Sodium 137 135-145 mmol/L Potassium 4.6 3.3-5.1 mmol/L CL 108 96-108 mmol/L CO2 23 22-29 mmol/L Gap 11 L 12-20 BUN 23 H 9-16 mg/dL Creat 1.16 0.5-1.4 mg/dL EGFR > 60 NOTE: For -[place] individuals, multiply the result by 1.210. Chronic Kidney Disease: Estimated GFR < 60 mL/min/1.73m2 Severe Kidney Disease: Estimated GFR < 15 mL/min/1.73m2 FBS 156 H 60-99 mg/dL A fasting glucose of 126 mg/dl or greater on more than one occasion is considered diagnostic of diabetes. CA 9.5 8.4-10.2 mg/dL AST (GOT) 17 5-37 U/L ALT (GPT) 16 0-40 U/L Triglyceride 131 <150 mg/dL Desirable Triglyceride: less than 150 mg/dL Borderline High Triglyceride 150-199 mg/dL High Triglyceride: 200-499 mg/dL Very High Triglyceride: greater than or equal to 5OO mg/dL Cholesterol 135 <200 mg/dL Desirable Cholesterol: less than 200 mg/dL Borderline High Cholesterol: 200-239 mg/dL High Cholesterol: greater than 239 mg/dL LDL Calculated 73 <100 mg/dL Desirable LDL: less than 100 mg/dL Near Optimal/Above Optimal LDL: 110-129 mg/dL Borderline High LDL: 130-159 mg/dL High LDL: 160-189 mg/dL Very High LDL: greater than or equal to 190 mg/dL HDL 36 L >40 mg/dL Desirable HDL: greater than 40 mg/dL Note: This HDL assay may give artificially low results in patients with liver disease. Vit D 25-OH Tot 33.5 >30 ng/mL Health Based Reference Values* < 20 ng/mL Deficient 20-30 ng/mL Insufficient > 30 ng/mL Sufficient Laboratory Tests 02/05/24 08:18 Estimat Average Glucose 163 Hemoglobin A1c % 7.3 H Assessment and Plan Assessment & Plan (1) Essential hypertension: Code(s): I10 - Essential (primary) hypertension Plan: Blood pressure well controlled with present treatment, continue losartan HCTZ at the same dose (2) Dyslipidemia: Code(s): E78.5 - Hyperlipidemia, unspecified Plan: Continue atorvastatin 20 mg taken 1 tablet 3 times a week. (3) Diabetes mellitus with hyperglycemia, without long-term current use of insulin: Code(s): E11.65 - Type 2 diabetes mellitus with hyperglycemia Plan: Recent lab results reviewed with patient, with sugar and hemoglobin A1c not at goal. Will continue with metformin a 1000 mg twice a day and reinforced diabetic diet and regular exercise with patient. Counseled regarding importance of yearly diabetes retinopathy screening. Patient advised to inspect feet daily, for any signs of injury, callus or infection. Compliance with diet and regular exercise again stressed. Blood pressure goal is less than 130/80, goal LDL is less than 100 and goal hemoglobin A1c is less than 7% follow-up appoin tment made in-3--months, after fasting labs done. Orders: Orders Basic Metabolic Panel Fasting 04/29/24 E11.65 - Type 2 diabetes mellitus with hyperglycemia, E78.5 - Hyperlipidemia, unspecified, I10 - Essential (primary) hypertension Hemoglobin A1c 04/29/24 E11.65 - Type 2 diabetes mellitus with hyperglycemia, E78.5 - Hyperlipidemia, unspecified, I10 - Essential (primary) hypertension Microalbumin, Random (w Creat) 04/29/24 E11.65 - Type 2 diabetes mellitus with hyperglycemia, E78.5 - Hyperlipidemia, unspecified, I10 - Essential (primary) hypertension Lipid Panel 04/29/24 E11.65 - Type 2 diabetes mellitus with hyperglycemia, E78.5 - Hyperlipidemia, unspecified, I10 - Essential (primary) hypertension Alanine Aminotransferase 04/29/24 E11.65 - Type 2 diabetes mellitus with h yperglycemia, E78.5 - Hyperlipidemia, unspecified, I10 - Essential (primary) hypertension Aspartate Amino Transferase 04/29/24 E11.65 - Type 2 diabetes mellitus with hyperglycemia, E78.5 - Hyperlipidemia, unspecified, I10 - Essential (primary) hypertension Coding Level of Care Code Est Pt Level 4 (18448) Diagnoses Essential hypertension I10 Dyslipidemia E78.5 Diabetes mellitus with hyperglycemia, without long-term current use of insulin E11.65 Additional Codes LESA-7 Assessment Billing - LESA-7 Assessment Tool: LESA-7 Assessment 75630 ([id number])
== END 2024-02-09 14:11 | disposition home or self-care (01) ==
PROVIDERS: PCP Internal Medicine; Visit Provider Internal Medicine
DX: I10 Essential (primary) hypertension (principal); E78.5 Hyperlipidemia, unspecified; E11.65 Type 2 diabetes mellitus with hyperglycemia
CPT/HCPCS: 99214

== ENCOUNTER 2024-05-13 07:32 | Outpatient (REF) | payer MEDICARE, SELFPAY ==
[2024-05-13 11:50] LABS: Alanine Aminotransferase 12 U/L (0-40); Anion Gap 14 (12-20); Aspartate Amino Transferase 17 U/L (5-37); Blood Urea Nitrogen 27 mg/dL (9-16); Calcium 10.2 mg/dL (8.4-10.2); Carbon Dioxide 21 mmol/L (22-29); Chloride 112 mmol/L (96-108); Cholesterol 120 mg/dL (<200); Estimated Glomerular Filt Rate 51; Glucose Fasting 142 mg/dL (60-99); HDL Cholesterol 37 mg/dL (>40); LDL Cholesterol Calculated 63 mg/dL (<100); Potassium 4.6 mmol/L (3.3-5.1); Sodium 142 mmol/L (135-145); Triglycerides 101 mg/dL (<150)
[2024-05-13 11:55] LABS: Estimated Average Glucose 151 mg/dL; Hemoglobin A1c % 6.9 % (<6.0)
[2024-05-13 11:59] LABS: Creatinine Urine 109.91 mg/dL; Microalbum/Creatinine Ratio Ur 7.2 ug/mg cr (<30)
== END 2024-05-13 07:33 | disposition home or self-care (01) ==
LOC: HO.HMGCLDS 07:32
PROVIDERS: PCP Internal Medicine; Visit Provider Internal Medicine
DX: E11.65 Type 2 diabetes mellitus with hyperglycemia (principal); I10 Essential (primary) hypertension; E78.5 Hyperlipidemia, unspecified
CPT/HCPCS: 36415; 80048; 80061; 82043; 82570; 83036; 84450; 84460

== ENCOUNTER 2024-05-16 10:48 | Outpatient (AMB) | payer MEDICARE, SELFPAY ==
[2024-05-16 10:53] VITALS: BP 134/64; PULSE 70; O2SAT 98; BMI 23.2
--- NOTE | 2024-05-16 10:53 | A.OFFPC_ITS ---
Vital Signs 05/16/24 10:53 Height 5 ft 9 in Weight 157 lb BMI 23.2 BP 134/64 Blood Pressure Location Lt brachial Position Sitting Pulse 70 Pulse Source Pulse Oximeter Pulse Oximetry (%) 98 Oxygen Delivery Method Room Air Intake Visit Reasons: 3 month follow up Intake Note: Pt is here today for his 3mo. f/u Allergies hydroxyzine Adverse Reaction (Unknown, Verified 05/16/24 11:17) cough Medication List - Last Reconciled 05/16/24 by Saira Navas MD atorvastatin 20 mg PO .Three times a week blood sugar diagnostic (FreeStyle Lite Strips) check blood sugar once a day losartan-hydrochlorothiazide 100-12.5 mg 1 tab PO DAILY metformin 1,000 mg PO BID 90 days Tobacco use date assessed: 05/16/24 Fall risk assessment: No Falls in past year Last assessed Fall Risk: 05/16/24 Dental Screening Dental Screen Date: 05/16/24 Did you have a dental visit in the last 12 months?: Yes Was dental information given to patient?: Patient has dentist HPI 3 month follow up HPI Details 74-year-old male with diabetes mellitus, hyperlipidemia and hypertension, here today for his follow-up. He has been compliant with his medications, has cut back on his junk food, eats a healthier diet, more Mediterranean diet, and has started walking again for exercise. Latest fasting labs done showed improvement in diabetes control with hemoglobin A1c now at 6.9% and fasting lipids are within normal limits except for low good HDL level. He sees Dr. Najera for his routine eye exam. He has had COVID vaccines in the past but does not want to get the booster and he does not want to get flu shots, up-to-date with his pneumonia vaccine but has not yet had his shingles vaccine. [facility] Medical History Diabetes mellitus with hyperglycemia, without long-term current use of insulin Refused influenza vaccine Vitamin D deficiency Type 2 diabetes mellitus without complication, without long-term current use of insulin Essential hypertension Dyslipidemia Surgical History Hx of colonoscopy No pertinent past surgical history Family History Father Unknown family medical history Mother HTN (hypertension) Diabetes mellitus Sister No problems noted. Daughter No problems noted. Social History Housing: House Alcohol intake: never Patient Tobacco Use Status: Never used Tobacco e-Cigarette/Vaping Use: Never Used Current occupational status: retired Cognitive needs: No Hearing needs: No Vision needs: Yes Questionnaire PHQ-9 Over the last 2 weeks, how often have you been bothered by any of the following problems? 1. Little interest or pleasure in doing things: not at all 2. Feeling down, depressed, or hopeless: not at all 3. Trouble falling or staying asleep, or sleeping too much: not at all 4. Feeling tired or having little energy: not at all 5. Poor appetite or overeating: not at all 6. Feeling bad about yourself - or that you are a failure or have let yourself or your family down: several days 7. Trouble concentrating on things, such as reading the newspaper or watching television: not at all 8. Moving or speaking so slowly that other people could have noticed. Or the opposite - being so fidgety or restless that you have been moving around a lot more than usual: more than half the days 9. Thoughts that you would be better off or of hurting yourself in some way: not at all Total score: 3 Depression Screening Interpretation: Negative Depression Screening Done: Yes Source: Developed by Drs. Francisco Norman, Arin Walsh, Kal Timmons and colleagues, with an educational azucena from [employer]. Thrive Questionnaire Date Thrive assessed: 05/16/24 I am a: Patient What is your living situation today?: I have a steady place to live Within the past 12 months, did the food you bought not last and you didn't have the money to get more?: I choose not to answer this question Within the past 12 months, did you worry whether your food would run out before you got money to buy more?: Never true Do you have trouble paying for medicines?: No Do you have trouble getting transportation to medical appointments?: No Do you have trouble paying your heating and electricity bill?: No Do you have trouble taking care of your child, family member or friend?: No Do you have trouble with day-to-day activities such as bathing, preparing meals, shopping, managing finances, etc.?: No Are you currently unemployed and looking for a job?: No Are you interested in more education?: No Please select the resources that you would like help with: Housing/Detention Currently or been in a relationship where the following occur: I choose not to answer THRIVE Score: 0 AUDIT C Alcohol Use Questionnaire (AUDIT-C) 1. How often do you have a drink containing alcohol?: Never Total Score: 0 LESA-7 AMB Questionnaire LESA-7 Date LESA - 7 assessed: 05/16/24 Feeling nervous, anxious, or on edge: 0 = Not at all Not being able to stop or control worryin = Not at all Worrying too much about different things: 0 = Not at all Trouble relaxin = Several days Being so restless that it is hard to sit still: 0 = Not at all Becoming easily annoyed or irritable: 0 = Not at all Feeling afraid as if something awful might happen: 0 = Not at all Total LESA-7 score (0-4 normal; 5-9 mild; 10-14 moderate; 15-21 severe): 1 Source: Developed by Drs. Francisco Norman, Arin Walsh, Kal Timmons and colleagues, with an educational azucena from [employer]. LESA-7 Assessment Billing LESA-7 Assessment Tool: LESA-7 Assessment 09543 Review of Systems Const Denies body aches, Denies fatigue, Denies fever(s), Denies headache(s) and Denies weakness Eyes Denies change in vision ENT Denies dizziness and Denies headache(s) Card Denies chest pain, Denies lightheadedness, Denies palpitations and Denies dyspnea Resp Denies chest congestion, Denies cough, Denies dyspnea and Denies wheezing GI Denies abdominal pain, Denies change in bowel habits and Denies heartburn Denies dysuria, Denies urinary frequency and Denies urinary urgency Musc Denies back pain, Denies myalgias, Denies arthralgias and Denies joint swelling Neuro Denies dizziness, Denies headache(s) and Denies weakness Endo Denies fatigue, Denies polydipsia, Denies polyuria and Denies palpitations Roddy/Lymph Reports no additional complaints Aller/Immun Denies seasonal rhinorrhea and Denies wheezing Physical exam (Primary Care) Vital Signs: Last Vital Signs Pulse 70 05/16/24 10:53 BP 134/64 05/16/24 10:53 Pulse Ox 98 05/16/24 10:53 Oxygen Delivery Method Room Air 05/16/24 10:53 BMI result Body Mass Index 23.2 Tobacco/Smoking Status: Tobacco use Status Tobacco use date assessed 05/16/24 05/16/24 10:57 Patient Tobacco Use Status Never used Tobacco 05/16/24 10:53 e-Cigarette/Vaping Use Never Used 05/16/24 10:53 Depression Screening Interpretation: Negative Thrive Assessment: Date of Thrive Assessment Date Thrive assessed 05/16/24 05/16/24 10:57 Currently or been in a relationship where the following occur: I choose not to answer Const General: comfortable and no acute distress Nutritional Appearance: average body habitus Orientation/consciousness: patient oriented x3 HENMT Head: Yes atraumatic General nose exam: Normal external nose present Face and sinus: Yes face symmetric Mouth: Normal oral and palatal mucosa present and moist mucous membranes Eyes General: appearance normal, both eyes and all related structures Neck Neck: Yes full ROM, Yes no lymphadenopathy and Yes supple Chest Chest palpation & inspection: normal inspection of the chest Resp Effort & Inspection: normal respiratory effort and able to speak in complete sentences Auscultation: clear to auscultation bilaterally Cardio Rate: regular rate Rhythm: regular rhythm Heart sounds: S1 normal heart sound present and S2 normal heart sound present GI Other: Normal bowel sounds, soft, nontender, no mass palpated Auscultation: normal bowel sounds General: Yes no CVA tenderness Male General Exam: Yes normal external exam Back/Spine/Pelvis Back: no CVA tenderness and No back tenderness Skin General skin exam: no rashes or lesions noted Neuro General: patient oriented x3, gait normal, moves all extremities, Normal light touch and pain sensation, no focal motor deficits, CN's II-XI intact bilaterally and normal sensation to monofilament Extrem Other: No gross bone deformity, or joint swelling seen, sensation intact by monofilament testing in both feet General: Yes full ROM, Yes no joint enlargement, Yes no pedal edema and Yes normal gait Results Reviewed Results Reviewed: Name: ErikaBhavesh Age/Sex: 74/M : 1950 Unit#: [id number] Attend Dr: Saira Navas MD Re05/13/24 Status: DEP REF Location: [facility] Disch: SPEC : [id number] VONNIE: 05/13/24 STATUS: COMP REQ : [id number] RECD: 05/13/24-[address]: Saira Navas MD COMP: 05/13/24 ENTERED: 05/13/[address]: ORDERED: Met Prof Fast, AST, ALT, Lipid Panel Test Result Flag Reference Sodium 142 135-145 mmol/L Potassium 4.6 3.3-5.1 mmol/L CL 112 H 96-108 mmol/L CO2 21 L 22-29 mmol/L Gap 14 12-20 BUN 27 H 9-16 mg/dL Creat 1.37 0.5-1.4 mg/dL EGFR 51 NOTE: For -Cym[place] individuals, multiply the result by 1.210. Chronic Kidney Disease: Estimated GFR < 60 mL/min/1.73m2 Severe Kidney Disease: Estimated GFR < 15 mL/min/1.73m2 FBS 142 H 60-99 mg/dL A fasting glucose of 126 mg/dl or greater on more than one occasion is considered diagnostic of diabetes. CA 10.2 # 8.4-10.2 mg/dL AST (GOT) 17 5-37 U/L ALT (GPT) 12 0-40 U/L Triglyceride 101 <150 mg/dL Desirable Triglyceride: less than 150 mg/dL Borderline High Triglyceride 150-199 mg/dL High Triglyceride: 200-499 mg/dL Very High Triglyceride: greater than or equal to 5OO mg/dL Cholesterol 120 <200 mg/dL Desirable Cholesterol: less than 200 mg/dL Borderline High Cholesterol: 200-239 mg/dL High Cholesterol: greater than 239 mg/dL LDL Calculated 63 <100 mg/dL Desirable LDL: less than 100 mg/dL Near Optimal/Above Optimal LDL: 110-129 mg/dL Borderline High LDL: 130-159 mg/dL High LDL: 160-189 mg/dL Very High LDL: greater than or equal to 190 mg/dL HDL 37 L >40 mg/dL Desirable HDL: greater than 40 mg/dL Note: This HDL assay may give artificially low results in patients with liver disease. Laboratory Tests 02/05/24 05/13/24 08:18 07:42 Estimat Average Glucose 163 151 Hemoglobin A1c % 7.3 H 6.9 H Assessment and Plan Assessment & Plan (1) Diabetes mellitus with hyperglycemia, without long-term current use of insulin: Code(s): E11.65 - Type 2 diabetes mellitus with hyperglycemia Plan: Improvement in diabetes control noted with hemoglobin A1c now down to 6.8%. Continue with metformin 1000 mg 1 tablet twice a day and reinforced importance of following recommended diet and staying active , get regular exercise . He sees Dr. Najera for his routine eye exam. will see him back for follow-up in 6 months. (2) Essential hypertension: Code(s): I10 - Essential (primary) hypertension Plan: Continue with losartan HCTZ 100-12.5 mg tablet to take once a day in a.m.. Reinforced importance of following a low sodium diet, getting regular exercise, and lowering stress levels. (3) Dyslipidemia: Code(s): E78.5 - Hyperlipidemia, unspecified Plan: Reviewed recent fasting lipid panel with patient which showed LDL cholesterol triglycerides and total cholesterol within normal limits, HDL still remains low. Continue with atorvastatin 20 mg 1 tablet 3 times a week and low-cholesterol diet and regular exercise. Will see him back for follow-up in six-month Orders: Orders Hemoglobin A1c 10/25/24 E11.65 - Type 2 diabetes mellitus with hyperglycemia, E78.5 - Hyperlipidemia, unspecified, I10 - Essential (primary) hypertension, Z12.5 - Encounter for screening for malignant neoplasm of prostate, Z86.39 - Personal history of other endocrine, nutritional and metabolic disease Alanine Aminotransferase 10/25/24 E11.65 - Type 2 diabetes mellitus with hype rglycemia, E78.5 - Hyperlipidemia, unspecified, I10 - Essential (primary) hypertension, Z12.5 - Encounter for screening for malignant neoplasm of prostate, Z86.39 - Personal history of other endocrine, nutritional and metabolic disease Microalbumin, Random (w Creat) 10/25/24 E11.65 - Type 2 diabetes mellitus with hyperglycemia, E78.5 - Hyperlipidemia, unspecified, I10 - Essential (primary) hypertension, Z12.5 - Encounter for screening for malignant neoplasm of prostate, Z86.39 - Personal history of other endocrine, nutritional and metabolic disease PSA,Total (Free>4and<10) 10/25/24 E11.65 - Type 2 diabetes mellitus with hyperglycemia, E78.5 - Hyperlipidemia, unspecified, I10 - Essential (primary) hypertension, Z12.5 - Encounter for screening for malignant neoplasm of prostate, Z86.39 - Personal history of other endocrine, nutritional and metabolic disease Aspartate Amino Transferase 10/25/24 E11.65 - Type 2 diabetes mellitus with hyperglycemia, E78.5 - Hyperlipidemia, unspecified, I10 - Essential (primary) hypertension, Z12.5 - Encounter for screening for malignant neoplasm of prostate, Z86.39 - Personal history of other endocrine, nutritional and metabolic disease Basic Metabolic Panel Fasting 10/25/24 E11.65 - Type 2 diabetes mellitus with hyperglycemia, E78.5 - Hyperlipidemia, unspecified, I10 - Essential (primary) hypertension, Z12.5 - Encounter for screening for malignant neoplasm of prostate, Z86.39 - Personal history of other endocrine, nutritional and metaboli c disease Lipid Panel 10/25/24 E11.65 - Type 2 diabetes mellitus with hyperglycemia, E78.5 - Hyperlipidemia, unspecified, I10 - Essential (primary) hypertension, Z12.5 - Encounter for screening for malignant neoplasm of prostate, Z86.39 - Personal history of other endocrine, nutritional and metabolic disease Vitamin D 25-OH Total 10/25/24 E11.65 - Type 2 diabetes mellitus with hyperglycemia, E78.5 - Hyperlipidemia, unspecified, I10 - Essential (primary) hypertension, Z12.5 - Encounter for screening for malignant neoplasm of prostate, Z86.39 - Personal history of other endocrine, nutritional and metabolic disease Medications: New lancets (FreeStyle Lancets) As directed once a day before meal 100 ea 5RF Refilled atorvastatin 20 mg PO .Three times a week 36 tabs 3RF metformin 1,000 mg PO BID 180 tabs 3RF 90 days losartan-hydrochlorothiazide 100-12.5 mg 1 tab PO DAILY 90 tabs 3RF Coding Level of Care Code Est Pt Level 4 (58817) Complex EM visit Add On G2211 Diagnoses Diabetes mellitus with hyperglycemia, without long-term current use of insulin E11. Essential hypertension I10 Dyslipidemia E78.5 Additional Codes LESA-7 Assessment Billing - LESA-7 Assessment Tool: LESA-7 Assessment 09526 ([id number])
== END 2024-05-16 11:42 | disposition home or self-care (01) ==
PROVIDERS: PCP Internal Medicine; Visit Provider Internal Medicine
DX: E11.65 Type 2 diabetes mellitus with hyperglycemia (principal); I10 Essential (primary) hypertension; E78.5 Hyperlipidemia, unspecified
CPT/HCPCS: 99214; G2211

== ENCOUNTER 2024-11-10 08:04 | Outpatient (REF) | payer MEDICARE, SELFPAY ==
[2024-11-10 10:36] LABS: Estimated Average Glucose 154 mg/dL; Hemoglobin A1C 180.6475 umol/L
[2024-11-10 11:00] LABS: Alanine Aminotransferase 12 U/L (0-40); Anion Gap 10 (12-20); Aspartate Amino Transferase 19 U/L (5-37); Blood Urea Nitrogen 31 mg/dL (9-16); Calcium 9.1 mg/dL (8.4-10.2); Carbon Dioxide 24 mmol/L (22-29); Chloride 112 mmol/L (96-108); Cholesterol 132 mg/dL (<200); Creatinine Urine 142.41 mg/dL; Estimated Glomerular Filt Rate 48; Glucose Fasting 154 mg/dL (60-99); HDL Cholesterol 35 mg/dL (>40); LDL Cholesterol Calculated 72 mg/dL (<100); Microalbum/Creatinine Ratio Ur 12.6 ug/mg cr (<30); Potassium 4.6 mmol/L (3.3-5.1); Sodium 141 mmol/L (135-145); Triglycerides 127 mg/dL (<150); Vitamin D 25-OH Total 51.1 ng/mL (>30)
== END 2024-11-10 08:05 | disposition home or self-care (01) ==
LOC: HO.HMGCLDS 08:04
PROVIDERS: PCP Internal Medicine; Visit Provider Internal Medicine
DX: E11.65 Type 2 diabetes mellitus with hyperglycemia (principal); I10 Essential (primary) hypertension; E78.5 Hyperlipidemia, unspecified; Z86.39 Personal history of other endocrine, nutritional and metabolic disease; Z12.5 Encounter for screening for malignant neoplasm of prostate
CPT/HCPCS: 36415; 80048; 80061; 82043; 82306; 82570; 83036; 84153; 84450; 84460

== ENCOUNTER 2024-11-15 08:39 | Outpatient (REF) | payer MEDICARE, SELFPAY ==
[2024-11-15 10:48] LABS: MANUAL DIFF FLAG NO
[2024-11-15 10:52] LABS: Basophils Absolute Auto 0.1 X10*3/uL (0.0-0.2); Basophils Percent Auto 0.6 % (0-2); Eosinophils Absolute Auto 0.5 X10*3/uL (0.0-0.4); Eosinophils Percent Auto 4.2 % (0-4); Hematocrit 39.4 % (42.0-52.0); Hemoglobin 13.6 g/dl (14.0-18.0); Imm Gran Abs Auto 0.04 X10*3/uL (0.00-0.03); Imm Gran Pct Auto 0.3 % (0.0-0.4); Lymphocytes Absolute Auto 2.5 X10*3/uL (1.2-4.9); Lymphocytes Percent Auto 21.4 % (20-40); Mean Corpuscular HGB Conc 34.5 g/dl (31.0-36.0); Mean Corpuscular Hemoglobin 31.3 pg (27.0-33.0); Mean Corpuscular Volume 90.8 fL (80.0-98.0); Mean Platelet Volume 11.2 fL (9.4-12.4); Monocytes Absolute Auto 0.7 X10*3/uL (0.1-1.2); Monocytes Percent Auto 5.9 % (2-11); Neutrophils Absolute Auto 7.8 x10*3/uL (2.0-8.3); Neutrophils Percent Auto 67.6 % (45-73); Platelet Count 227 X10*3/uL (160-400); Red Blood Count 4.34 X10*6/uL (4.60-5.80); Red Cell Distribution Width 12.6 % (11.0-16.0); White Blood Count 11.6 X10*3/uL (4.8-10.8)
== END 2024-11-15 08:40 | disposition home or self-care (01) ==
LOC: HO.HMGCLDS 08:39
PROVIDERS: PCP Internal Medicine; Visit Provider Internal Medicine
DX: Z00.00 Encounter for general adult medical examination without abnormal findings (principal); E11.65 Type 2 diabetes mellitus with hyperglycemia; R53.83 Other fatigue; E78.5 Hyperlipidemia, unspecified; I10 Essential (primary) hypertension; R94.4 Abnormal results of kidney function studies; Z79.84 Long term (current) use of oral hypoglycemic drugs; Z79.899 Other long term (current) drug therapy; Z28.21 Immunization not carried out because of patient refusal
CPT/HCPCS: 36415; 85025; 96127; 99397

== ENCOUNTER 2024-11-15 08:39 | Outpatient (AMB) | payer MEDICARE, SELFPAY ==
[2024-11-15 08:43] VITALS: BP 146/70; PULSE 71; O2SAT 99; BMI 22.0
--- NOTE | 2024-11-15 08:43 | A.OFFPC_ITS ---
Vital Signs 11/15/24 08:43 Height 5 ft 9 in Weight 149 lb BMI 22.0 BP 146/70 H Blood Pressure Location Lt brachial Position Sitting Pulse 71 Pulse Source Pulse Oximeter Pulse Oximetry (%) 99 Oxygen Delivery Method Room Air Intake Visit Reasons: Annual PE Clif from 10/20 Intake Note: Pt is here today for his PE: Last colonoscopy 08/31/14 Allergies hydroxyzine Adverse Reaction (Unknown, Verified 11/15/24 08:59) cough Medication List - Last Reconciled 11/15/24 by Saira Navas MD atorvastatin 20 mg PO .Three times a week blood sugar diagnostic (FreeStyle Lite Strips) check blood sugar once a day lancets (FreeStyle Lancets) As directed once a day before meal losartan-hydrochlorothiazide 100-12.5 mg 1 tab PO DAILY metformin 1,000 mg PO BID 90 days Tobacco use date assessed: 11/15/24 Fall risk assessment: No Falls in past year Last assessed Fall Risk: 11/15/24 Dental Screening Dental Screen Date: 11/15/24 Did you have a dental visit in the last 12 months?: Yes Did you have a dental problem in the last 6 months where you did not have access to dental care?: No Was dental information given to patient?: Patient has dentist HPI Annual PE Clif from 10/20 HPI Details - The patient is a 74-year-old male wit h past medical history for Type 2 Diabetes Mellitus , dyslipidemia, hypertension, presents today for physical exam, can follow-up on his diabetes mellitus hypertension and dyslipidemia. - Recent blood work show an increase in Hemoglobin A1c to 7.0%, with Metformin as the sole medication. - decrease in renal function also note d on labs done, with reduction in Glomerular Filtration Rate (GFR) from 51 to 48 , along with a slight rise in creatinine from baseline normal levels in April, signaling possible progression of chronic kidney disease. - The patient indicates feeling more fat igued lately but does not present with overt anemia symptoms. - admits to not following recommended diet over the last several months, more sedentary lately , not exercising as much as he was during the summertime., which might have led to lower HDL cholesterol and higher Triglycerides - he is due for a repeat colonoscopy, l ast 1 done was approximately [address] Benz. - He is up-to-date with his vaccinatio ns, except for flu and Shingrix vaccine, which she does not want to get - elevated blood pressure on today's vis it. [facility] Medical History (Updated 11/19/24 @ 01:21 by Saira Navas MD) Fatigue Diabetes mellitus with hyperglycemia, without long-term current use of insulin Refused influenza vaccine Vitamin D deficiency Essential hypertension Dyslipidemia Surgical History Hx of colonoscopy No pertinent past surgical history Family History Father Unknown family medical history Mother HTN (hypertension) Diabetes mellitus Sister No problems noted. Daughter No problems noted. Social History Housing: House Alcohol intake: never Patient Tobacco Use Status: Never used Tobacco e-Cigarette/Vaping Use: Never Used Current occupational status: retired Cognitive needs: No Hearing needs: No Vision needs: Yes Questionnaire PHQ-9 Over the last 2 weeks, how often have you been bothered by any of the following problems? 1. Little interest or pleasure in doing things: not at all 2. Feeling down, depressed, or hopeless: not at all 3. Trouble falling or staying asleep, or sleeping too much: not at all 4. Feeling tired or having little energy: not at all 5. Poor appetite or overeating: not at all 6. Feeling bad about yourself - or that you are a failure or have let yourself or your family down: not at all 7. Trouble concentrating on things, such as reading the newspaper or watching television: not at all 8. Moving or speaking so slowly that other people could have noticed. Or the opposite - being so fidgety or restless that you have been moving around a lot more than usual: not at all 9. Thoughts that you would be better off or of hurting yourself in some way: not at all Total score: 0 Depression Screening Interpretation: Negative Depression Screening Done: Yes 81705 - PHQ-9 Billing: Yes Source: Developed by Drs. Francsico Norman, Arin Walsh, Kal Timmons and colleagues, with an educational azucena from [employer]. Thrive Questionnaire Date Thrive assessed: 11/15/24 I am a: Patient What is your living situation today?: I have a steady place to live Within the past 12 months, did the food you bought not last and you didn't have the money to get more?: Never true Within the past 12 months, did you worry whether your food would run out before you got money to buy more?: Never true Do you have trouble paying for medicines?: No Do you have trouble getting transportation to medical appointments?: No Do you have trouble paying your heating and electricity bill?: No Do you have trouble taking care of your child, family member or friend?: No Do you have trouble with day-to-day activities such as bathing, preparing meals, shopping, managing finances, etc.?: No Are you currently unemployed and looking for a job?: No Are you interested in more education?: No Currently or been in a relationship where the following occur: I choose not to answer THRIVE Score: 0 AUDIT C Alcohol Use Questionnaire (AUDIT-C) 1. How often do you have a drink containing alcohol?: Never Total Score: 0 LESA-7 AMB Questionnaire LESA-7 Date LESA - 7 assessed: 11/15/24 Feeling nervous, anxious, or on edge: 0 = Not at all Not being able to stop or control worryin = Not at all Worrying too much about different things: 0 = Not at all Trouble relaxin = Not at all Being so restless that it is hard to sit still: 0 = Not at all Becoming easily annoyed or irritable: 0 = Not at all Feeling afraid as if something awful might happen: 0 = Not at all Total LESA-7 score (0-4 normal; 5-9 mild; 10-14 moderate; 15-21 severe): 0 Source: Developed by Drs. Francisco Norman, Arin Waslh, Kal Timmons and colleagues, with an educational azucena from [employer]. LESA-7 Assessment Billing LESA-7 Assessment Tool: LESA-7 Assessment 90283 Review of Systems Const Denies body aches, Denies fever(s), Denies headache(s) and Denies weakness Eyes Denies change in vision ENT Denies dizziness and Denies headache(s) Card Denies chest pain, Denies lightheadedness, Denies palpitations and Denies dyspnea Resp Denies chest congestion, Denies cough, Denies dyspnea and Denies wheezing GI Denies abdominal pain, Denies change in bowel habits and Denies heartburn Denies dysuria, Denies urinary frequency and Denies urinary urgency Musc Denies back pain, Denies myalgias, Denies arthralgias and Denies joint swelling Skin/Breast Denies lesions and Denies rash Neuro Denies dizziness, Denies headache(s) and Denies weakness Psych Reports no additional complaints Endo Denies polydipsia, Denies polyuria and Denies palpitations Roddy/Lymph Reports no additional complaints Aller/Immun Denies seasonal rhinorrhea and Denies wheezing Physical exam (Primary Care) Vital Signs: Last Vital Signs Pulse 71 11/15/24 08:43 BP 146/70 H 11/15/24 08:43 Pulse Ox 99 11/15/24 08:43 Oxygen Delivery Method Room Air 11/15/24 08:43 BMI result Body Mass Index 22.0 Tobacco/Smoking Status: Tobacco use Status Tobacco use date assessed 11/15/24 11/15/24 08:48 Patient Tobacco Use Status Never used Tobacco 11/15/24 08:45 e-Cigarette/Vaping Use Never Used 11/15/24 08:45 PHQ-9: PHQ-9 Score PHQ-9: Total score 0 11/18/24 04:23 Depression Screening Interpretation: Negative Thrive Assessment: Date of Thrive Assessment Date Thrive assessed 11/15/24 11/15/24 08:45 Currently or been in a relationship where the following occur: I choose not to answer Const General: comfortable and no acute distress Nutritional Appearance: average body habitus Orientation/consciousness: patient oriented x3 HENMT Head: Yes atraumatic General nose exam: Normal external nose present Face and sinus: Yes face symmetric Mouth: Normal oral and palatal mucosa present and moist mucous membranes Eyes General: appearance normal, both eyes and all related structures Neck Neck: Yes full ROM, Yes no lymphadenopathy and Yes supple Chest Chest palpation & inspection: normal inspection of the chest Resp Effort & Inspection: normal respiratory effort and able to speak in complete sentences Auscultation: clear to auscultation bilaterally Cardio Rate: regular rate Rhythm: regular rhythm Heart sounds: S1 normal heart sound present and S2 normal heart sound present GI Other: Normal bowel sounds, soft, nontender, no mass palpated Auscultation: normal bowel sounds General: Yes no CVA tenderness Male General Exam: Yes normal external exam Back/Spine/Pelvis Back: no CVA tenderness and No back tenderness Skin General skin exam: no rashes or lesions noted Neuro General: patient oriented x3, gait normal, moves all extremities, Normal light touch and pain sensation, no focal motor deficits, CN's II-XI intact bilaterally and normal sensation to monofilament Extrem Other: No gross bone deformity, or joint swelling seen, sensation intact by monofilament testing in both feet General: Yes full ROM, Yes no joint enlargement, Yes no pedal edema and Yes normal gait Results Reviewed Results Reviewed: Laboratory Tests 05/13/24 11/10/24 07:42 08:10 Estimat Average Glucose 154 Hemoglobin A1c % 7.0 H Microalb/Creat Ratio 7.2 12.6 Name: Bhavesh James Age/Sex: 74/M : 1950 Unit#: [id number] Attend Dr: Saira Navas MD Re11/10/24 Status: DEP REF Location: [facility] Disch: SPEC : [id number] VONNIE: 11/10/24 STATUS: COMP REQ : [id number] RECD: 11/10/24-[address]: Saira Navas MD COMP: 11/10/24 ENTERED: 11/10/[address] [facility] [address]: ORDERED: Met Prof Fast, AST, ALT, Lipid Panel, Vitamin D 25-OH Test Result Flag Reference Sodium 141 135-145 mmol/L Potassium 4.6 3.3-5.1 mmol/L CL 112 H 96-108 mmol/L CO2 24 22-29 mmol/L Gap 10 L 12-20 BUN 31 H 9-16 mg/dL Creat 1.44 H 0.5-1.4 mg/dL eGFR 48 Chronic Kidney Disease: Estimated GFR < 60 mL/min/1.73m2 Severe Kidney Disease: Estimated GFR < 15 mL/min/1.73m2 FBS 154 H 60-99 mg/dL A fasting glucose of 126 mg/dl or greater on more than one occasion is considered diagnostic of diabetes. CA 9.1 # 8.4-10.2 mg/dL AST (GOT) 19 5-37 U/L ALT (GPT) 12 0-40 U/L Triglyceride 127 <150 mg/dL Desirable Triglyceride: less than 150 mg/dL Borderline High Triglyceride 150-199 mg/dL High Triglyceride: 200-499 mg/dL Very High Triglyceride: greater than or equal to 5OO mg/dL Cholesterol 132 <200 mg/dL Desirable Cholesterol: less than 200 mg/dL Borderline High Cholesterol: 200-239 mg/dL High Cholesterol: greater than 239 mg/dL LDL Calculated 72 <100 mg/dL Desirable LDL: less than 100 mg/dL Near Optimal/Above Optimal LDL: 110-129 mg/dL Borderline High LDL: 130-159 mg/dL High LDL: 160-189 mg/dL Very High LDL: greater than or equal to 190 mg/dL HDL 35 L >40 mg/dL Desirable HDL: greater than 40 mg/dL Note: This HDL assay may give artificially low results in patients with liver disease. Vit D 25-OH Tot 51.1 >30 ng/mL Health Based Reference Values* < 20 ng/mL Deficient 20-30 ng/mL Insufficient > 30 ng/mL Sufficient Coding Level of Care Code Est Pt Prev Care >65y(42303) Diagnoses Diabetes mellitus with hyperglycemia, without long-term current use of insulin E11.65 Encounter for screening for malignant neoplasm of colon Z12.11 Fatigue R53.83 Dyslipidemia E78.5 Essential hypertension I10 Refused influenza vaccine Z28.21 Decreased glomerular filtration rate (GFR) R94.4 Additional Codes PHQ-9 - 38262 - PHQ-9 Billing: Yes ([id number]) LESA-7 Assessment Billing - LESA-7 Assessment Tool: LESA-7 Assessment 57583 ([id number]) Assessment & Plan Assessment & Plan (1) Diabetes mellitus with hyperglycemia, without long-term current use of insulin: Code(s): E11.65 - Type 2 diabetes mellitus with hyperglycemia Category: Medical Plan: Hemoglobin a mostly at present is at 7%. Will continue on metformin same dose, and add Jardiance 10 mg per tablet to take once a day at least an hour before breakfast. Reinforced importance of following recommended diet and staying active having regular exercise. Up-to-date with his diabetes retinopathy screening. Will see him back for follow-up in 3 months (2) Encounter for screening for malignant neoplasm of colon: Code(s): Z12.11 - Encounter for screening for malignant neoplasm of colon Plan: Gastroenterology referral ordered for his repeat colonoscopy. (3) Fatigue: Code(s): R53.83 - Other fatigue Category: Medical Plan: CBC ordered (4) Dyslipidemia: Code(s): E78.5 - Hyperlipidemia, unspecified Category: Medical (5) Essential hypertension: Code(s): I10 - Essential (primary) hypertension Category: Medical (6) Refused influenza vaccine: Code(s): Z28.21 - Immunization not carried out because of patient refusal Category: Medical (7) Decreased glomerular filtration rate (GFR): Code(s): R94.4 - Abnormal results of kidney function studies Category: Medical Plan During the consultation, the patient and I discussed the challenges of managing Type 2 Diabetes Mellitus in conjunction with chronic kidney disease. Jardiance was discussed as an addition to his regimen to improve blood sugar control and protect kidney function. 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 The significance of regular exercise was highlighted, linked to raising HDL cholesterol levels. Colonoscopy scheduling with Dr. Lopez was addressed, ensuring he is on track regarding colon cancer screening. Vaccination status was reviewed; he opted out of new vaccines except for pneumonia received earlier. Follow-up in January is recommended to assess response to therapeutic adjustments. - Begin taking Jardiance as prescribed, one hour before breakfast. - Continue Metformin and atorvastatin as directed. -nephrology consult ordered. Continue losartan-HCTZ, low-salt diet advised -gastroenterologic ordered to see Dr. Benz for repeat colonoscopy. - Engage in routine physical activity to help increase HDL cholesterol. - Maintain current dietary regimen, focusing on low carbohydrates. - Monitor blood pressure regularly and take medication as prescribed. - Return for follow-up in January or sooner if symptoms worsen. - Notify the office if no contact is made regarding colonoscopy within 10 days. Patient was informed and verbally consented to the use of an ambient scribe for clinic note documentation during this visit Orders: Orders Complete Blood Count Auto Diff 11/15/24 R53.83 - Other fatigue Hemoglobin A1c 01/23/25 E11.65 - Type 2 diabetes mellitus with hyperglycemia, E78.5 - Hyperlipidemia, unspecified, I10 - Essential (primary) hypertension, R94.4 - Abnormal results of kidney function studies Alanine Aminotransferase 01/23/25 E11.65 - Type 2 diabetes mellitus with hyperglycemia, E78.5 - Hyperlipidemia, unspecified, I10 - Essential (primary) hypertension, R94.4 - Abnormal results of kidney function studies Aspartate Amino Transferase 01/23/25 E11.65 - Type 2 diabetes mellitus with hyperglycemia, E78.5 - Hyperlipidemia, unspecified, I10 - Essential (primary) hypertension, R94.4 - Abnormal results of kidney function studies Basic Metabolic Panel Fasting 01/23/25 E11.65 - Type 2 diabetes mellitus with hyperglycemia, E78.5 - Hyperlipidemia, unspecified, I10 - Essential (primary) hypertension, R94.4 - Abnormal results of kidney function studies Lipid Panel 01/23/25 E11.65 - Type 2 diabetes mellitus with hyperglycemia, E78.5 - Hyperlipidemia, unspecified, I10 - Essential (primary) hypertension, R94.4 - Abnormal results of kidney function studies Vitamin D 25-OH Total 01/23/25 E11.65 - Type 2 diabetes mellitus with hyperglycemia, E78.5 - Hyperlipidemia, unspecified, I10 - Essential (primary) hypertension, R94.4 - Abnormal results of kidney function studies Referrals Gastroenterology Referral Z12.11 - Encounter for screening for malignant neoplasm of colon Nephrology Referral E11.65 - Type 2 diabetes mellitus with hyperglycemia, I10 - Essential (primary) hypertension, R94.4 - Abnormal results of kidney function studies Medications: New Jardiance (empagliflozin) 10 mg PO QAM 30 tabs 5RF NS E11.65 - Type 2 diabetes mellitus with hyperglycemia Refilled losartan-hydrochlorothiazide 100-12.5 mg 1 tab PO DAILY 90 tabs 3RF atorvastatin 20 mg PO .Three times a week 36 tabs 3RF metformin 1,000 mg PO BID 180 tabs 3RF 90 days
== END 2024-11-15 10:13 | disposition home or self-care (01) ==
PROVIDERS: PCP Internal Medicine; Visit Provider Internal Medicine
DX: Z00.00 Encounter for general adult medical examination without abnormal findings (principal); E11.65 Type 2 diabetes mellitus with hyperglycemia; R53.83 Other fatigue; E78.5 Hyperlipidemia, unspecified; I10 Essential (primary) hypertension; Z12.11 Encounter for screening for malignant neoplasm of colon; Z28.21 Immunization not carried out because of patient refusal; R94.4 Abnormal results of kidney function studies

== ENCOUNTER 2024-12-13 11:28 | Outpatient (AMB) | payer MEDICARE, SELFPAY ==
--- NOTE | 2024-12-13 11:32 | HO.NEPHOV ---
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 His Hemoglobin A1c is 7.0%, with Metformin as the sole medication after which pioglitazone was added recently. He is not known to have retinopathy or neuropathy. He is known to have hypertension for a long time and has been on losartan/hctz. He does not drink enough water by mouth as per the . He has been taking NSAID''s intermittently. He has been having steady mild rise in creatinine from baseline over time. He does not have back pain, hypercalcemia, proteinuria, weight loss, night sweats, H/O BPH, H/O malignancies, edema, hematuria, renal stones, UTI's, recurrent sinusitis, photosensitivity, skin rashes, epistaxis, CAD, CVA, carotid stenosis, CHF or PAD. He feels well. [facility] Medical History (Updated 12/13/24 @ 13:14 by Farhad Guillen MD) Fatigue Diabetes mellitus with hyperglycemia, without long-term current use of insulin Refused influenza vaccine Vitamin D deficiency Essential hypertension Dyslipidemia Surgical History Hx of colonoscopy No pertinent past surgical history Family History Father Unknown family medical history Mother HTN (hypertension) Diabetes mellitus Sister No problems noted. Daughter No problems noted. Social History Housing: House Alcohol intake: never Patient Tobacco Use Status: Never used Tobacco e-Cigarette/Vaping Use: Never Used Current occupational status: retired Cognitive needs: No Hearing needs: No Vision needs: Yes Review of Systems Const All systems reviewed & are unremarkable except as noted in HPI and below Physical Exam Vital Signs: Last Vital Signs Pulse 82 12/13/24 11:33 BP 126/70 12/13/24 11:33 Pulse Ox 98 12/13/24 11:33 Oxygen Delivery Method Room Air 12/13/24 11:33 BMI result Body Mass Index 22.1 Const General: comfortable and no acute distress Orientation/consciousness: patient oriented x3 HEENT Head: Yes normocephalic Mouth: Normal oral and palatal mucosa present Eyes EOM: EOMs intact bilaterally Neck Neck: Yes supple Resp Auscultation: clear to auscultation bilaterally Cardio Jugular venous distension: no JVD Rate: regular rate GI Palpation (GI): Soft to palpation Auscultation: normal bowel sounds General: Yes no CVA tenderness Back/Spine/Pelvis Back: no CVA tenderness Skin General skin exam: no rashes or lesions noted Neuro General: patient oriented x3 and moves all extremities Extrem General: Yes no pedal edema Results Reviewed Nephrology Results: Hgb 13.6 g/dl (14.0-18.0) L 11/15/24 WBC 11.6 X10*3/uL (4.8-10.8) H 11/15/24 Plt Count 227 X10*3/uL (160-400) 11/15/24 Sodium 141 mmol/L (135-145) 11/10/24 Potassium 4.6 mmol/L (3.3-5.1) 11/10/24 Chloride 112 mmol/L (96-108) H 11/10/24 Carbon Dioxide 24 mmol/L (22-29) 11/10/24 BUN 31 mg/dL (9-16) H 11/10/24 Creatinine 1.44 mg/dL (0.5-1.4) H 11/10/24 Calcium 9.1 mg/dL (8.4-10.2) 11/10/24 Urine Creatinine 142.41 mg/dL 11/10/24 Assessment & Plan Assessment & Plan (1) Essential hypertension: Code(s): I10 - Essential (primary) hypertension Category: Medical (2) CKD (chronic kidney disease) stage 3, GFR 30-59 ml/min: Code(s): N18.30 - Chronic kidney disease, stage 3 unspecified Category: Medical Qualifiers: Chronic kidney disease stage 3 subtype: stage 3a (GFR 45-59) Qualified Code(s): N18.31 - Chronic kidney disease, stage 3a Plan Bhavesh has CKD likely from vascular disease/hypertension along with loss of GFR with aging. He has been on ARB/HCTZ and has been taking NSAID's intermittently which might have been causing some alteration in autoregulation within the kidney. I have ordered renal USS along with Doppler of renal arteries along with some blood work & urine studies. I am considering backing off ARB and add Jardiance after reviewing all the data at the next visit. All questions answered. Follow up given Orders: Orders US renal BI 3 Weeks I10 - Essential (primary) hypertension, N18.30 - Chronic kidney disease, stage 3 unspecified US renal doppler 3 Weeks I10 - Essential (primary) hypertension, N18.30 - Chronic kidney disease, stage 3 unspecified Electrolytes 3 Weeks I10 - Essential (primary) hypertension, N18.30 - Chronic kidney disease, stage 3 unspecified Calcium 3 Weeks I10 - Essential (primary) hypertension, N18.30 - Chronic kidney disease, stage 3 unspecified Parathyroid Hormone Intact 3 Weeks I10 - Essential (primary) hypertension, N18.30 - Chronic kidney disease, stage 3 unspecified Vitamin D 25-OH Total 3 Weeks I10 - Essential (primary) hypertension, N18.30 - Chronic kidney disease, stage 3 unspecified Creatinine 3 Weeks I10 - Essential (primary) hypertension, N18.30 - Chronic kidney disease, stage 3 unspecified Blood Urea Nitrogen 3 Weeks I10 - Essential (primary) hypertension, N18.30 - Chronic kidney disease, stage 3 unspecified Immunofixation Pnl, Serum 3 Weeks I10 - Essential (primary) hypertension, N18.30 - Chronic kidney disease, stage 3 unspecified Coding Level of Care Code New Pt Level 4 (96033) Diagnoses Essential hypertension I10 Stage 3a chronic kidney disease N18.31 Chronic kidney disease stage 3 subtype: stage 3a (GFR 45-59)
[2024-12-13 11:33] VITALS: BP 126/70; PULSE 82; O2SAT 98; BMI 22.1
--- OUTSIDE RECORDS SUMMARY | 2024-12-13 12:10 | XMS_ITS | Patient Health Record ---
Author Organization [facility] Address [address] [place] [address] Care Team Providers Care Medical Detail Representative Name Role Phone Eloise BRUMFIELD, Saira Primary Care Provider Rachael Sy Jr, Sahil Bergeron REASON FOR REFERRAL No Information MEDICATIONS Medication SIG (Take, Route, Frequency, Duration) Notes Start Date End Date Status MoviPrep 100 GM as directed before colonoscopy Orally for 1 dose 05/02/2014 Active Atorvastatin Calcium 20 MG 1 tablet Oral ly Once a day Active metFORMIN HCl 500 MG TAKE 1 TABLET WITH MEALS TWICE A DAY ORALLY Oral for 90 Active SOCIAL HISTORY Sex Assigned At : Social History Observation Description Sex Assigned At Unknown PROBLEMS Problem Type ICD Code Onset Dates Problem Status W/U Status Risk SNOMED Code Notes Problem Colon cancer screening (V76.51) Active confirmed 350544422 Problem Encounter for long-term (current) use of other medications (V58.69) Active confirmed 395568647 Problem Type II diabetes mellitus (250.00) Active confirmed 53166052 PLAN OF TREATMENT Future Test Test Name Order Date COLONOSCOPY 05/02/2014 Next Appt Details Provider Name:Sahil mccarthy Jr, 02/21/2025 11:20:00 AM, [address], [address], [place], [address], Insurance Providers Payer Name Payer Address Payer Phone Subscriber Number Group Number Insured Name Patient Relationship to Insured Coverage Start Date Coverage End Date [facility] [address] [place] [id number] [id number] SULY DOTY Self - patient is the insured MEDICAL (GENERAL) HISTORY Medical History History ICD Code elevated cholesterol diabetes mellitus
== END 2024-12-13 12:02 | disposition home or self-care (01) ==
PROVIDERS: PCP Internal Medicine; Referring Provider Internal Medicine; Visit Provider Internal Medicine Nephrology
DX: I10 Essential (primary) hypertension (principal); N18.31 Chronic kidney disease, stage 3a
CPT/HCPCS: 99204

== ENCOUNTER → 2024-12-13 11:28 | Outpatient (BNVA) | payer MEDICARE, SELFPAY | PROVIDERS: PCP Internal Medicine; Referring Provider Internal Medicine; Visit Provider Internal Medicine Nephrology | DX: E11.22 Type 2 diabetes mellitus with diabetic chronic kidney disease (principal); I12.9 Hypertensive chronic kidney disease with stage 1 through stage 4 chronic kidney disease, or unspecified chronic kidney disease; N18.31 Chronic kidney disease, stage 3a | CPT/HCPCS: 99202 ==

== ENCOUNTER 2025-01-11 08:51 | Outpatient (REF) | payer MEDICARE, SELFPAY ==
--- NOTE | ~2025-01-11 | US_ITS ---
CLINICAL HISTORY: N18.30 - Chronic kidney disease, stage 3 unspecified US Renal with color and spectral Doppler evaluation of the renal arteries and veins Comparison: None Findings: Right kidney normal size and echotexture, 10.4 cm length. No hydronephrosis. Normal color Doppler. Resistive indices are 0.78 at the superior pole, 0.76 at the midpole, and 0.75 at the inferior pole. Right renal artery peak systolic velocity is 152 centimeters/second proximally, 149 centimeters/second at midportion and 86 centimeters/second distally. Left kidney normal size and echotexture, 10.2 cm length. No hydronephrosis. Normal color Doppler. Resistive indices are 0.77 at the superior pole, 0.78 at the midpole, and 0.69 at the inferior pole. Left renal artery peak systolic velocity is 139 centimeters/second proximally, 102 centimeters/second at the midportion and 100 centimeters/second distally. The renal veins are patent. Aortic velocity is 138 centimeters/second making RAR nondiagnostic. IMPRESSION: No evidence of renal artery stenosis based on renal artery peak systolic velocities or resistive indices. This document has been electronically signed by: Tyrell Larose DO on 01/11/2025 10:59:38
--- OUTSIDE RECORDS SUMMARY | 2025-01-11 09:16 | XMS_ITS | Patient Health Record ---
Author Organization [facility] Address [address] [place] [address] Care Team Providers Care Director Clinical Operations Name Role Phone Eloise BRUMFIELD, Saira Primary Care Provider Sahil Gan Jr [phone] Reason For Referral No Information Medications Medication SIG (Take, Route, Frequency, Duration) Notes Start Date End Date Status MoviPrep 100 GM as directed before colonoscopy Orally for 1 dose 05/02/2014 Active Atorvastatin Calcium 20 MG 1 tablet Oral ly Once a day Active metFORMIN HCl 500 MG TAKE 1 TABLET WITH MEALS TWICE A DAY ORALLY Oral for 90 Active Problems Problem Type SNOMED Code ICD Code Onset Dates Problem Status W/U Status Risk Notes Problem [id number] Encounter for long-term (current) use of other medications (V58.69) Active confirmed Problem 143515222 Colon cancer screening (V76.51) Active confirmed Problem 51080069 Type II diabetes mellitus (250.00) Active confirmed Plan Of Treatment Future Test Test Name Order Date COLONOSCOPY 05/02/2014 Next Appt Details Provider Name:Sahil mccarthy , 02/21/2025 11:20:00 AM, [address], [address], [place], [address], Insurance Providers Payer Name Payer Address Payer Phone Subscriber Number Group Number Insured Name Patient Relationship to Insured Coverage Start Date Coverage End Date [facility] [address] [place] [phone] [id number] SULY DOTY Self - patient is the insured Medical (General) History Medical History History ICD Code elevated cholesterol diabetes mellitus
== END 2025-01-11 08:52 | disposition home or self-care (01) ==
LOC: HO.US 08:51
PROVIDERS: PCP Internal Medicine; Visit Provider Internal Medicine Nephrology
DX: I12.9 Hypertensive chronic kidney disease with stage 1 through stage 4 chronic kidney disease, or unspecified chronic kidney disease (principal); N18.30 Chronic kidney disease, stage 3 unspecified
CPT/HCPCS: 76775; 93975

== ENCOUNTER → 2025-01-11 08:52 | Outpatient (BNV) | payer MEDICARE, SELFPAY | PROVIDERS: PCP Internal Medicine; Visit Provider Radiology Diagnostic Radiology | DX: N18.30 Chronic kidney disease, stage 3 unspecified (principal) | CPT/HCPCS: 76775; 93975 ==

== ENCOUNTER 2025-01-12 08:47 | Outpatient (REF) | payer MEDICARE, SELFPAY ==
--- OUTSIDE RECORDS SUMMARY | 2025-01-12 09:08 | XMS_ITS | Patient Health Record ---
Author Organization [facility] Address [address] [place] [address] Care Team Providers Care Hvac Commercial Salesperson Name Role Phone Eloise BRUMFIELD, Saira Primary Care Provider Sahil Gan Jr Reason For Referral No Information Medications Medication [...] Problem Status W/U Status Risk Notes Problem [id number] Encounter for long-term (current) use of other medications (V58.69) Active confirmed Problem 577691997 Colon cancer screening (V76.51) Active confirmed Problem 12925838 Type II diabetes mellitus (250.00) Active confirmed Plan Of Treatment Future Test Test Name Order Date COLONOSCOPY 05/02/2014 Next Appt Details Provider Name:Sahil mccarthy , 02/21/2025 11:20:00 AM, [address], [address], [place], [address], Insurance Providers Payer Name Payer Address Payer Phone Subscriber Number Group Number Insured Name Patient Relationship to Insured Coverage Start Date Coverage End Date [facility] [address] [place] [phone] [id number] SULY DOTY Self - patient is the insured Medical (General) History Medical History History ICD Code elevated cholesterol diabetes mellitus
[2025-01-12 10:35] LABS: Anion Gap 14 (12-20); Blood Urea Nitrogen 32 mg/dL (9-16); Calcium 9.7 mg/dL (8.4-10.2); Carbon Dioxide 23 mmol/L (22-29); Chloride 112 mmol/L (96-108); Estimated Glomerular Filt Rate 55; Potassium 4.5 mmol/L (3.3-5.1); Sodium 144 mmol/L (135-145)
[2025-01-12 10:53] LABS: Vitamin D 25-OH Total 31.5 ng/mL (>30)
[2025-01-12 11:03] LABS: Parathyroid Hormone Intact 63.9 pg/mL (8.7-77.1)
== END 2025-01-12 08:48 | disposition home or self-care (01) ==
LOC: HO.HMGCLDS 08:47
PROVIDERS: PCP Internal Medicine; Visit Provider Internal Medicine Nephrology
DX: I12.9 Hypertensive chronic kidney disease with stage 1 through stage 4 chronic kidney disease, or unspecified chronic kidney disease (principal); N18.30 Chronic kidney disease, stage 3 unspecified
CPT/HCPCS: 36415; 80051; 82306; 82310; 82565; 82784; 83970; 84520; 86334

== ENCOUNTER 2025-01-17 11:05 | Outpatient (AMB) | payer MEDICARE, SELFPAY ==
--- NOTE | 2025-01-17 11:05 | HO.NEPHOV ---
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 His Hemoglobin A1c is 7.0%, with Metformin as the sole medication after which pioglitazone was added recently. He is not known to have retinopathy or neuropathy. He is known to have hypertension for a long time and has been on losartan/hctz. He does not drink enough water by mouth as per the . He has been taking NSAID''s intermittently. He has been having steady mild rise in creatinine from baseline over time. He does not have back pain, hypercalcemia, proteinuria, weight loss, night sweats, H/O BPH, H/O malignancies, edema, hematuria, renal stones, UTI's, recurrent sinusitis, photosensitivity, skin rashes, epistaxis, CAD, CVA, carotid stenosis, CHF or PAD. He feels well. [facility] Medical History (Updated 12/13/24 @ 13:14 by Farhad Guillen MD) Fatigue Diabetes mellitus with hyperglycemia, without long-term current use of insulin Refused influenza vaccine Vitamin D deficiency Essential hypertension Dyslipidemia Surgical History Hx of colonoscopy No pertinent past surgical history Family History Father Unknown family medical history Mother HTN (hypertension) Diabetes mellitus Sister No problems noted. Daughter No problems noted. Social History Housing: House Alcohol intake: never Patient Tobacco Use Status: Never used Tobacco e-Cigarette/Vaping Use: Never Used Current occupational status: retired Cognitive needs: No Hearing needs: No Vision needs: Yes Review of Systems Const All systems reviewed & are unremarkable except as noted in HPI and below Physical Exam Vital Signs: Last Vital Signs Pulse 97 01/17/25 11:12 BP 102/60 01/17/25 11:12 Pulse Ox 98 01/17/25 11:12 Oxygen Delivery Method Room Air 01/17/25 11:12 BMI result Body Mass Index 21.4 Const General: comfortable and no acute distress Orientation/consciousness: patient oriented x3 HEENT Head: Yes normocephalic Mouth: Normal oral and palatal mucosa present Eyes EOM: EOMs intact bilaterally Neck Neck: Yes supple Resp Auscultation: clear to auscultation bilaterally Cardio Jugular venous distension: no JVD Rate: regular rate GI Palpation (GI): Soft to palpation Auscultation: normal bowel sounds General: Yes no CVA tenderness Back/Spine/Pelvis Back: no CVA tenderness Skin General skin exam: no rashes or lesions noted Neuro General: patient oriented x3 and moves all extremities Extrem General: Yes no pedal edema Results Reviewed Nephrology Results: Hgb 13.6 g/dl (14.0-18.0) L 11/15/24 WBC 11.6 X10*3/uL (4.8-10.8) H 11/15/24 Plt Count 227 X10*3/uL (160-400) 11/15/24 Sodium 144 mmol/L (135-145) 01/12/25 Potassium 4.5 mmol/L (3.3-5.1) 01/12/25 Chloride 112 mmol/L (96-108) H 01/12/25 Carbon Dioxide 23 mmol/L (22-29) 01/12/25 BUN 32 mg/dL (9-16) H 01/12/25 Creatinine 1.27 mg/dL (0.5-1.4) 01/12/25 Calcium 9.7 mg/dL (8.4-10.2) 01/12/25 PTH Intact 63.9 pg/mL (8.7-77.1) 01/12/25 Urine Creatinine 142.41 mg/dL 11/10/24 Renal US 01/11/25 Assessment & Plan Assessment & Plan (1) CKD (chronic kidney disease) stage 3, GFR 30-59 ml/min: Code(s): N18.30 - Chronic kidney disease, stage 3 unspecified Category: Medical Qualifiers: Chronic kidney disease stage 3 subtype: stage 3a (GFR 45-59) Qualified Code(s): N18.31 - Chronic kidney disease, stage 3a (2) Essential hypertension: Code(s): I10 - Essential (primary) hypertension Category: Medical Plan Bhavesh has CKD likely from vascular disease/hypertension along with loss of GFR with aging. He has been on ARB/HCTZ and has been taking NSAID's intermittently which might have been causing some alteration in autoregulation within the kidney. He has stopped NSAID's. Renal USS along with Doppler of renal arteries were normal. His serum creatinine has settled to baseline . I have added Jardiance 10 mg and asked him to come off Pioglitazone . All questions answered. Follow up given Orders: Orders Hemoglobin A1c 4 Months I10 - Essential (primary) hypertension, N18.31 - Chronic kidney disease, stage 3a Creatinine 4 Months I10 - Essential (primary) hypertension, N18.31 - Chronic kidney disease, stage 3a Blood Urea Nitrogen 4 Months I10 - Essential (primary) hypertension, N18.31 - Chronic kidney disease, stage 3a Protein Creatinine Ratio, Ur 4 Months I10 - Essential (primary) hypertension, N18.31 - Chronic kidney disease, stage 3a Electrolytes 4 Months I10 - Essential (primary) hypertension, N18.31 - Chronic kidney disease, stage 3a Medications: New empagliflozin (Jardiance) 10 mg PO DAILY 30 tabs 6RF Coding Level of Care Code Est Pt Level 4 (97272) Diagnoses Stage 3a chronic kidney disease N18.31 Chronic kidney disease stage 3 subtype: stage 3a (GFR 45-59) Essential hypertension I10
[2025-01-17 11:12] VITALS: BP 102/60; PULSE 97; O2SAT 98; BMI 21.4
--- OUTSIDE RECORDS SUMMARY | 2025-01-17 13:23 | XMS_ITS | Patient Health Record ---
Author Organization [facility] Address [address] [place] [address] Care Team Providers Care Four Roll Calender Operator Name Role Phone Eloise BRUMFIELD, Saira Primary Care Provider Sahil Gan Jr [phone] Reason For Referral No Information Medications [...] Problem Status W/U Status Risk Notes Problem [id number] Encounter for long-term (current) use of other medications (V58.69) Active confirmed Problem 508382297 Colon cancer screening (V76.51) Active confirmed Problem 22187684 Type II diabetes mellitus (250.00) Active confirmed Plan Of Treatment Future Test Test Name Order Date COLONOSCOPY 05/02/2014 Next Appt Details Provider Name:Sahil mccarthy , 02/21/2025 11:20:00 AM, [address], [address], [place], [address], Insurance Providers Payer Name Payer Address Payer Phone Subscriber Number Group Number Insured Name Patient Relationship to Insured Coverage Start Date Coverage End Date [facility] [address] [place] [phone] [id number] SULY DOTY Self - patient is the insured Medical (General) History Medical History History ICD Code elevated cholesterol diabetes mellitus
== END 2025-01-17 11:39 | disposition home or self-care (01) ==
LOC: HO.HKA 11:05
PROVIDERS: PCP Internal Medicine; Visit Provider Internal Medicine Nephrology
DX: N18.31 Chronic kidney disease, stage 3a (principal); I10 Essential (primary) hypertension
CPT/HCPCS: 99214

== ENCOUNTER → 2025-01-17 11:05 | Outpatient (BNVA) | payer MEDICARE, SELFPAY | PROVIDERS: PCP Internal Medicine; Visit Provider Internal Medicine Nephrology | DX: E11.22 Type 2 diabetes mellitus with diabetic chronic kidney disease (principal); I12.9 Hypertensive chronic kidney disease with stage 1 through stage 4 chronic kidney disease, or unspecified chronic kidney disease; N18.31 Chronic kidney disease, stage 3a; E78.5 Hyperlipidemia, unspecified | CPT/HCPCS: 99212 ==

== ENCOUNTER 2025-01-17 19:01 | Inpatient (IN) | payer MEDICARE, SELFPAY ==
--- NOTE | ~2025-01-17 | XR_ITS ---
CLINICAL HISTORY: cough, shortness of breath 2 views of the chest. Findings: Heart size is normal. There is no consolidation. No pleural effusion is seen. The lungs are hyperinflated. Impression: No consolidation. This document has been electronically signed by: Ruy Bravo MD on 01/17/2025 20:07:09
--- NOTE | ~2025-01-17 | CT_ITS ---
CLINICAL HISTORY: Rt inguinal pain with cough, pls eval for hernia CT abdomen and pelvis without contrast Comparison: None Findings: There is a nodular consolidation within the left lower lobe. No pleural effusion. Small hiatal hernia. The gallbladder and solid organs are within normal limits. No renal stones. No bowel obstruction, pneumoperitoneum, or pneumatosis. Distal colonic diverticulosis without diverticulitis. Prostatomegaly. Urinary bladder unremarkable. Normal appendix. No ascites. Severe bilateral hip degenerative changes. No acute fractures. IMPRESSION: 1. 2.8 cm length right inguinal hernia contains fat without induration. 2. Nodular consolidation left lower lobe. This could represent pneumonia or aspiration. Follow-up as needed. This document has been electronically signed by: Stella Colvin MD on 01/17/2025 22:28:23
[2025-01-17 19:12] VITALS: BP 124/63; PULSE 103; RESP 16; TEMP 36.9; O2SAT 94; BMI 22.3
--- NOTE | 2025-01-17 19:16 | ED.GENADULT ---
HPI - General Adult General Chief complaint: General Medical Stated complaint: ? hernia from coughing ; cold x3 days Time Seen by Provider: 01/17/25 21:21 History of Present Illness ED Provider: Martha BORJAS narrative: The patient is a 74-year-old male who has been sick with a cough another respiratory symptoms for almost a week cough, sore throat, and has also been complaining of pain in his left ear. He has developed pain in his right groin region which today the pain was bad enough that he wanted to come to the hospital to get checked. He does not know if he has had a fever. He says he does not feel that the pain in his right groin is worse when he takes a deep breath, only when he coughs. He has not noticed any in his scrotum inguinal region. He also says that he had an episode of shaking chills this evening. His says he had an episode of shaking chills yesterday evening as well. He says his bowels have been working normally. No vomiting. The patient is known to have decreased function. He had a nephrology visit earlier today. Related Data Previous Rx's ?Medication ?Instructions ?Recorded blood sugar diagnostic (FreeStyle #100 ea 10/05/23 Lite Strips) lancets 28 gauge (FreeStyle #100 ea 05/16/24 Lancets) atorvastatin 20 mg tablet 20 mg PO .Three times a week #36 11/15/24 tabs losartan 100 1 tab PO DAILY #90 tabs 11/15/24 mg-hydrochlorothiazide 12.5 mg tablet metformin 1,000 mg tablet 1,000 mg PO BID 90 days #180 tabs 11/15/24 pioglitazone 15 mg tablet 15 mg PO DAILY #90 tabs 11/16/24 empagliflozin 10 mg tablet 10 mg PO DAILY #30 tabs 01/17/25 (Jardiance) Allergies Allergy/AdvReac Type Severity Reaction Status Date / Time hydroxyzine AdvReac Unknown cough Verified 01/17/25 19:18 Review of Systems Review of Systems: Yes all other systems are reviewed and are negative [facility] Past Medical History Medical History (Updated 01/18/25 @ 01:58 by Donavan Thomas MD) Fatigue Diabetes mellitus with hyperglycemia, without long-term current use of insulin Refused influenza vaccine Vitamin D deficiency Essential hypertension Dyslipidemia Surgical History Hx of colonoscopy No pertinent past surgical history Family History Family History Father Unknown family medical history Mother HTN (hypertension) Diabetes mellitus Sister No problems noted. Daughter No problems noted. Social History Social History Housing: House Alcohol intake: never Patient Tobacco Use Status: Never used Tobacco Smoked in Last 30 Days: No e-Cigarette/Vaping Use: Never Used Use of substances other than those prescribed or required for medical reasons: No Advance Directives: Yes Advance Directives on File: Yes Advance Directives Date on File: 05/16/24 Do you have a plan to hurt others: No Plan Current occupational status: retired Cognitive needs: No Hearing needs: No Vision needs: Yes Physical Exam ED Vital Signs: Vital Signs - 24 hr 01/17/25 19:12 01/17/25 20:31 01/17/25 22:09 Temperature 98.4 F 98.1 F 99.6 F Pulse Rate 103 H 87 81 Respiratory Rate 16 19 16 Blood Pressure 124/63 139/60 148/61 H Pulse Oximetry 94 91 L 94 Oxygen Delivery Method Room Air Room Air Room Air 01/18/25 00:25 01/18/25 00:32 01/18/25 01:36 Temperature 99.2 F Pulse Rate 86 91 Respiratory Rate 18 16 Blood Pressure 143/64 H 135/69 Pulse Oximetry 90 L 87 L 90 L Oxygen Delivery Method Room Air Room Air Nasal Cannula BMI result Body Mass Index 22.3 Const Other: The patient is a 74-year-old male who is awake, alert, pleasant and cooperative. He has a normal mental status. No signs of respiratory distress. He does not look obviously acutely ill. HENMT Other: Face is symmetrical. Mucous membranes moist. Posterior pharynx is unremarkable. Tympanic membranes normal bilaterally. Eyes General: appearance normal, both eyes and all related structures Conjunctivae: conjunctivae normal Pupils: Equal, round and reactive pupils present EOM: EOMs intact bilaterally Neck Neck: Yes normal visual inspection, Yes full ROM, Yes no lymphadenopathy and Yes no JVD Resp Effort & Inspection: normal respiratory effort Auscultation: clear to auscultation bilaterally Cardio Rate: regular rate Rhythm: regular rhythm Heart sounds: S1 normal heart sound present and S2 normal heart sound present GI Other: The abdomen is flat, soft, and nontender. He had some mild tenderness in the region of the right inguinal canal but I did not appreciate any mass or any fullness when he coughed. Other: Normal external genitalia. Skin Other: The skin was dry and unremarkable Neuro Other: The patient is awake and alert with a normal mental status. Cranial nerves 2-12 are intact. He moves his extremities normally. Cranial nerves: Yes Equal, round and reactive pupils present Extrem Other: No calf swelling or tenderness. Course Course Course Narrative: RME, this is a rapid medical exam performed by Aquilino Reyes please refer to primary provider for complete H&P- 74-year-old male presents for evaluation of cough, ear pain, and severe right lower abdominal pain that is only when he was coughing. I do not appreciate any inguinal hernia on exam. His oxygen saturation is 91-94% on room air, he does not appear to be in respiratory distress. Lungs were clear to auscultation. plan for labs, viral swabs, chest x-ray Medications Administered Generic Name Dose Route Start Last Admin Trade Name Freq PRN Reason Stop Dose Admin Enoxaparin Sodium 40 mg 01/18/25 03:00 01/18/25 02:52 Enoxaparin Sodium 40 Mg/0.4 Ml Syringe SUBCUT 40 mg Q24H NOY Administration Lactated Ringer's 1,000 mls @ 75 mls/hr 01/18/25 02:30 01/18/25 02:52 Lr IVCONT 75 mls/hr .[id number] NOY Administration Discontinued Medications Generic Name Dose Route Start Last Admin Trade Name Freq PRN Reason Stop Dose Admin Albuterol Sulfate 4 puff 01/17/25 23:14 01/17/25 23:26 Albuterol Sulfate 90 Mcg 8 Gm Inhaler INHALE 01/17/25 23:15 4 puff ONCE ONE Administration Ceftriaxone Sodium 1 gm 01/17/25 23:14 01/17/25 23:26 Ceftriaxone Sodium 1 Gm Vial IVPUSH 01/17/25 23:15 1 gm ONCE ONE Administration Guaifenesin/Dextromethorphan 5 ml 01/17/25 23:57 01/18/25 00:27 Guaifenesin Dm 100/10/5 Ml 5 Ml Syrup PO 01/17/25 23:58 Not Given ONCE ONE Hydromorphone HCl 0.5 mg 01/18/25 01:03 01/18/25 01:19 Hydromorphone Hcl 0.5 Mg/0.5 Ml Syringe IVPUSH 01/18/25 01:04 0.5 mg ONCE ONE Administration Protocol Sodium Chloride 1,000 mls @ 999 mls/hr 01/17/25 21:45 01/18/25 01:18 Ns IV 01/17/25 22:45 Infused .Q1H1M NOY Infusion Acetaminophen 1,000 mg in 100 mls @ 400 mls/hr 01/17/25 21:34 01/17/25 22:55 Ofirmev IV 01/17/25 21:48 Infused ONCE ONE Infusion Doxycycline Hyclate 100 mg/ 250 mls @ 166.67 mls/hr 01/17/25 23:14 01/18/25 01:19 Sodium Chloride IV 01/18/25 00:43 Infused ONCE ONE Infusion Medical Decision Making Medical Decision Making [facility] Narrative: The patient is a 74-year-old male who presented with 5-6 days symptoms of generalized illness with a cough and cold symptoms and also with right inguinal pain with the coughing. A viral swab at triage came back positive for influenza B. his 1st troponin was elevated at 2.7, but given that he had no fever and his vital signs were essentially unremarkable I did not have any strong suspicion that he was septic. Clinically he looked quite well. His chief complaint was pain in his right groin when he coughed. The patient's chest x-ray was negative. His urinalysis revealed no bacteria and no significant number of white white cells. I obtained a CT of the abdomen and pelvis (done without contrast because of his chronic renal insufficiency). Although this showed no acute intra-abdominal process fortunately the upper slices of the CT scan showed the lower lungs. This revealed a left lower lobe infiltrate. At that point I ordered ceftriaxone and doxycycline for the patient. The patient has been hoping to go home. Initially I thought that was probably likely since initially his oxygen saturations were good. However as he was on a monitor his oxygen saturation seemed to trend towards values just under 90% and so he was placed on oxygen. Therefore the patient was ultimately admitted for further care of his pneumonia. Lab Data 01/17/25 19:45 01/17/25 19:45 Labs: Lab Results 01/17/25 01/17/25 01/17/25 Range/Units 19:45 19:48 22:04 WBC 10.9 H (4.8-10.8) X10*3/uL RBC 4.11 L (4.60-5.80) X10*6/uL Hgb 13.0 L (14.0-18.0) g/dl Hct 36.9 L (42.0-52.0) % MCV 89.8 (80.0-98.0) fL MCH 31.6 (27.0-33.0) pg MCHC 35.2 (31.0-36.0) g/dl RDW 13.2 (11.0-16.0) % Plt Count 143 L D (160-400) X10*3/uL MPV 10.5 (9.4-12.4) fL Immature Gran % (Auto) 0.4 (0.0-0.4) % Neut % (Auto) 81.5 H (45-73) % Lymph % (Auto) 11.4 L (20-40) % [place] % (Auto) 6.5 (2-11) % Eos % (Auto) 0.1 (0-4) % Baso % (Auto) 0.1 (0-2) % Lymph # (Auto) 1.2 (1.2-4.9) X10*3/uL [place] # (Auto) 0.7 (0.1-1.2) X10*3/uL Eos # (Auto) 0.0 (0.0-0.4) X10*3/uL Baso # (Auto) 0.0 (0.0-0.2) X10*3/uL Abs Immat Gran (auto) 0.04 H (0.00-0.03) X10*3/uL Absolute Neuts (auto) 8.9 H (2.0-8.3) x10*3/uL Absolute Nucleated RBC 0.000 (0.0-0.012) X10*3/uL Nucleated RBC % (auto) 0.0 (0.0-0.2) /100WBC Sodium 135 (135-145) mmol/L Potassium 4.2 (3.3-5.1) mmol/L Chloride 103 (96-108) mmol/L Carbon Dioxide 21 L (22-29) mmol/L Anion Gap 15 (12-20) BUN 30 H (9-16) mg/dL Creatinine 1.77 H (0.5-1.4) mg/dL Estim Creat Clear Calc 33.4 Estimated GFR 38 Random Glucose 224 H (60-115) mg/dL Lactic Acid 2.7 H* (0.5-2.0) mmol/L Lactic Acid F/U @ 2Hr 1.3 (0.5-2.0) mmol/L Calcium 9.0 D (8.4-10.2) mg/dL Total Bilirubin 0.6 (0.0-1.0) mg/dL AST 36 (5-37) U/L ALT 15 (0-40) U/L Alkaline Phosphatase 54 (39-117) U/L C-Reactive Protein 3.85 H (< or = 0.50) mg/dL Total Protein 7.4 (6.5-8.0) g/dL Albumin 4.3 (3.5-5.0) g/dL Lipase 35 (8-78) U/L Urine Color Yellow Urine Appearance Cloudy Urine pH 5.0 (5.0-9.0) Ur Specific [place] 1.020 (1.005-1.025) Urine Protein 30 (1+) H (Neg-Trace) mg/dL Urine Glucose (UA) Negative (Negative) mg/dL Urine Ketones Trace (Negative) mg/dL Urine Blood Trace H (Negative) Urine Nitrite Negative (Negative) Ur Leukocyte Esterase Moderate (2+) H (Negative) Urine RBC 0-2 (0-2) /HPF Urine WBC 0-5 (0-5) /HPF Ur Squamous Epith Cells 3-5 (0-2) /HPF Urine Bacteria None Seen (None Seen) Hyaline Casts 6-10 (0-2) /LPF Influenza Type A (PCR) NEGATIVE (Negative) Influenza Type B (PCR) POSITIVE A (Negative) RSV RNA Qual (PCR) NEGATIVE (Negative) SARS-CoV-2 RNA (RT-PCR) NEGATIVE (Negative) S. pyogenes GrpA JEOVANNY Negative (Negative) Discharge Plan Discharge Clinical Impression: Left lower lobe pneumonia, Right groin pain, Influenza B Patient Disposition: Admitted As Inpatient
[2025-01-17 19:54] LABS: MANUAL DIFF FLAG NO
[2025-01-17 19:56] LABS: Appearance Urine Cloudy; Color Urine Yellow; Glucose Urine UA Negative (Negative); Leukocyte Esterase Urine Moderate (2+) (Negative); Nitrite Urine Negative (Negative); UMIC TRIGGER UACC YES; Urine Blood Trace (Negative); Urine Ketones Trace mg/dL (Negative); Urine Protein 30 (1+) mg/dL (Neg-Trace)
[2025-01-17 19:56] LABS: Basophils Percent Auto 0.1 % (0-2); Eosinophils Percent Auto 0.1 % (0-4); Hematocrit 36.9 % (42.0-52.0); Imm Gran Abs Auto 0.04 X10*3/uL (0.00-0.03); Imm Gran Pct Auto 0.4 % (0.0-0.4); Lymphocytes Absolute Auto 1.2 X10*3/uL (1.2-4.9); Lymphocytes Percent Auto 11.4 % (20-40); Mean Corpuscular HGB Conc 35.2 g/dl (31.0-36.0); Mean Corpuscular Hemoglobin 31.6 pg (27.0-33.0); Mean Corpuscular Volume 89.8 fL (80.0-98.0); Mean Platelet Volume 10.5 fL (9.4-12.4); Monocytes Absolute Auto 0.7 X10*3/uL (0.1-1.2); Monocytes Percent Auto 6.5 % (2-11); Neutrophils Absolute Auto 8.9 x10*3/uL (2.0-8.3); Neutrophils Percent Auto 81.5 % (45-73); Platelet Count 143 X10*3/uL (160-400); Red Blood Count 4.11 X10*6/uL (4.60-5.80); Red Cell Distribution Width 13.2 % (11.0-16.0); White Blood Count 10.9 X10*3/uL (4.8-10.8)
[2025-01-17 20:04] LABS: Bacteria Urine None Seen (None Seen); RBC Urine 0-2 /HPF (0-2); UACC Culture Trigger YES; WBC Urine 0-5 /HPF (0-5)
[2025-01-17 20:05] LABS: IDNOW Serial# 58CA691E; Strep A Nucleic Acid Negative (Negative)
[2025-01-17 20:09] LABS: Alanine Aminotransferase 15 U/L (0-40); Albumin Level 4.3 g/dL (3.5-5.0); Alkaline Phosphatase 54 U/L (39-117); Anion Gap 15 (12-20); Aspartate Amino Transferase 36 U/L (5-37); Bilirubin Total 0.6 mg/dL (0.0-1.0); Blood Urea Nitrogen 30 mg/dL (9-16); Carbon Dioxide 21 mmol/L (22-29); Chloride 103 mmol/L (96-108); Creatinine Clr Calc Pharmacy 33.4; Estimated Glomerular Filt Rate 38; Glucose Random 224 mg/dL (60-115); Lipase 35 U/L (8-78); Potassium 4.2 mmol/L (3.3-5.1); Sodium 135 mmol/L (135-145); Total Protein 7.4 g/dL (6.5-8.0)
[2025-01-17 20:20] LABS: Lactic Acid 2.7 mmol/L (0.5-2.0)
[2025-01-17 20:31] VITALS: BP 139/60; PULSE 87; RESP 19; TEMP 36.7; O2SAT 91
[2025-01-17 20:36] LABS: Influenza A PCR NEGATIVE (Negative); Influenza B PCR POSITIVE (Negative); Resp Syncy Virus RNA Qual PCR NEGATIVE (Negative); SARS COV2 PCR INHOUSE NEGATIVE (Negative)
[2025-01-17 21:48] LABS: C Reactive Protein 3.85 mg/dL (< or = 0.50)
[2025-01-17 21:56] LABS: Reflex Lactate? Lactic Acid Added
[2025-01-17] MEDS: Acetaminophen 1,000 MG/100 ML PIGGYBACK 400 MG IV (21:57)
[2025-01-17 22:09] VITALS: BP 148/61; PULSE 81; RESP 16; TEMP 37.6; O2SAT 94
[2025-01-17 22:22] LABS: ~Lactic Acid-LAB USE ONLY 1.3 mmol/L (0.5-2.0)
[2025-01-17] MEDS: 0.9 % Sodium Chloride 1,000 ML 999 ML IV (22:47)
[2025-01-17] MEDS: Albuterol Sulfate 90 MCG 8 GM INHALER 4 PUFF INHALE (23:26)
[2025-01-17] MEDS: Doxycycline Hyclate 100 MG in 0.9 % Sodium Chloride 250 ML 166.67 MG IV (23:26)
[2025-01-17] MEDS: cefTRIAXone sodium 1 GM VIAL IVPUSH (23:26)
[2025-01-18] VITALS (15 sets, daily range): BP systolic 114–160; BP diastolic 47–75; PULSE 83–105; RESP 16–18; TEMP 36.4–39.4; O2SAT 87–96
--- NOTE | 2025-01-18 00:32 | PC.NURSE ---
Addendum entered by Sandy Wilson RN 01/18/25 03:28: med rec done with pt and daughter at [facility]. Confirmed pt only taking 2 medications metformin 1000mg BID and losartan 12.5mg . Original Note: pts O2 sat noted to be 87% on Room air. placed pt on 2 L NC pts O2 sat now 94%.
[2025-01-18] MEDS: HYDROmorphone HCl 0.5 MG/0.5 ML SYRINGE IVPUSH (01:19)
--- NOTE | 2025-01-18 02:35 | PM.IMHP ---
History of Present Illness Date of Service: 01/18/25 Chief Complaint: Fevers and chills 74-year-old male with a past medical history of HTN, HLD, dm, CKD presented to the hospital today with a chief complaint of cough and shortness of breath. Patient reports that for about a week he has been having upper respiratory symptoms. For the past couple days he has been having fevers and chills. Reports having cough without any sputum production. Denies any chest pain or palpitations. Reports that whenever he coughs he has severe groin pain. Denies any scrotal pain. Denies any numbness tingling or focal weakness. Denies any GI or symptoms. Review of all other systems is negative except mentioned above ER course: Per ER physician, patient on presentation noted to be severely coughing has been hypoxic to 87%, placed on supplemental oxygen at 2 L. Not in respiratory distress. No significant wheezing on examination. Chest x-ray showed no acute cardiopulmonary process. Patient tested positive for influenza A. CT abdomen pelvis showed left lower lobe pneumonia and also noted to have left groin inguinal hernia. Patient was given ceftriaxone doxycycline. [facility] Medical History (Updated 01/18/25 @ 01:58 by Donavan Thomas MD) Fatigue Diabetes mellitus with hyperglycemia, without long-term current use of insulin Refused influenza vaccine Vitamin D deficiency Essential hypertension Dyslipidemia Family History Father Unknown family medical history Mother HTN (hypertension) Diabetes mellitus Sister No problems noted. Daughter No problems noted. Surgical History Hx of colonoscopy No pertinent past surgical history Social History Housing: House Alcohol intake: never Patient Tobacco Use Status: Never used Tobacco Smoked in Last 30 Days: No e-Cigarette/Vaping Use: Never Used Use of substances other than those prescribed or required for medical reasons: No Advance Directives: Yes Advance Directives on File: Yes Advance Directives Date on File: 05/16/24 Do you have a plan to hurt others: No Plan Current occupational status: retired Cognitive needs: No Hearing needs: No Vision needs: Yes Meds Allergies Allergy/AdvReac Type Severity Reaction Status Date / Time hydroxyzine AdvReac Unknown cough Verified 01/17/25 19:18 Active Medications: Current Medications Acetaminophen (Acetaminophen 325 Mg Tablet) 650 mg PO Q6H PRN PRN Reason: Pain, Mild 1-3,fever,headache Albuterol/Ipratropium (Albuterol/Iprat 2.5/0.5mg 3 Ml Ampul.Neb) 3 ml INHALE RQ4H WHILE AWAKE PRN PRN Reason: Shortness of Breath Calcium Carbonate (Calcium Carbonate 750 Mg Tab.Chew) 750 mg PO Q4H PRN PRN Reason: Heartburn Dextrose (Dextrose 50 % 25 Gm/50 Ml Syringe) 25 gm IVPUSH Q15M PRN; Protocol PRN Reason: per Hypoglycemia Standing Ord. Enoxaparin Sodium (Enoxaparin Sodium 40 Mg/0.4 Ml Syringe) 40 mg SUBCUT Q24H NOY Glucose (Glucose Gel 15 Gm Gel..Gram.) 15 gm PO Q15M PRN; Protocol PRN Reason: per Hypoglycemia Standing Ord. Lactated Ringer's (Lr) 1,000 mls @ 75 mls/hr IVCONT .[id number] NOY Insulin Human Lispro (Insulin Lispro 100 Unit/Ml 3 Ml Vial) 0 unit SUBCUT QIDACHS NOY; Protocol Magnesium Hydroxide (Milk Of Magnesia 30 Ml Oral.Susp) 30 ml PO DAILY PRN PRN Reason: Constipation Melatonin (Melatonin 3 Mg Tablet) 6 mg PO BEDTIME PRN PRN Reason: Insomnia Sodium Chloride (0.9 % Sodium Chloride Flush 3 Ml Syringe) 3 ml IVFLUSH QSHIFT NOY Physical Exam Vital Signs and Narrative: Vital Signs: Last Vital Signs Temp 99.2 F 01/18/25 01:36 Pulse 91 01/18/25 01:36 Resp 16 01/18/25 01:36 BP 135/69 01/18/25 01:36 Pulse Ox 90 L 01/18/25 01:36 O2 Del Method Nasal Cannula 01/18/25 01:36 BMI result Body Mass Index 22.3 Gen: Appears be in no acute distress HEENT: NCAT, Moist mucosa. Pulmonary: Coarse breath sounds CVS: Normal S1-S2 Abdomen: BS+, Soft, Nontender Extremities: Warm well perfused Neuro: Alert and awake. Results Labs 01/17/25 19:45 01/17/25 19:45 Labs: Laboratory Results - last 24 hr 01/17/25 01/17/25 01/17/25 19:45 19:48 22:04 MCV 89.8 MCH 31.6 MCHC 35.2 RDW 13.2 Plt Count 143 L D MPV 10.5 Immature Gran % (Auto) 0.4 Neut % (Auto) 81.5 H Lymph % (Auto) 11.4 L [place] % (Auto) 6.5 Eos % (Auto) 0.1 Baso % (Auto) 0.1 Lymph # (Auto) 1.2 [place] # (Auto) 0.7 Eos # (Auto) 0.0 Baso # (Auto) 0.0 Abs Immat Gran (auto) 0.04 H Absolute Neuts (auto) 8.9 H Absolute Nucleated RBC 0.000 Nucleated RBC % (auto) 0.0 Anion Gap 15 Estim Creat Clear Calc 33.4 Estimated GFR 38 Random Glucose 224 H Lactic Acid 2.7 H* Lactic Acid F/U @ 2Hr 1.3 Calcium 9.0 D Total Bilirubin 0.6 AST 36 ALT 15 Alkaline Phosphatase 54 C-Reactive Protein 3.85 H Total Protein 7.4 Albumin 4.3 Lipase 35 Urine Color Yellow Urine Appearance Cloudy Urine pH 5.0 Ur Specific [place] 1.020 Urine Protein 30 (1+) H Urine Glucose (UA) Negative Urine Ketones Trace Urine Blood Trace H Urine Nitrite Negative Ur Leukocyte Esterase Moderate (2+) H Urine RBC 0-2 Urine WBC 0-5 Ur Squamous Epith Cells 3-5 Urine Bacteria None Seen Hyaline Casts 6-10 Influenza Type A (PCR) NEGATIVE Influenza Type B (PCR) POSITIVE A RSV RNA Qual (PCR) NEGATIVE SARS-CoV-2 RNA (RT-PCR) NEGATIVE S. pyogenes GrpA JEOVANNY Negative Assessment and Plan (1) Influenza B: Status: Acute Plan 74-year-old male with a past medical history of HTN, HLD, dm, CKD presented to the hospital today with a chief complaint of cough and shortness of breath/fevers, chills. Noted to have influenza A positive and left lower lobe pneumonia. Patient was hypoxic. Admitted for following Influenza: Left lower lobe pneumonia: Hypoxia: Patient was saturating 87% on presentation. Placed on supplemental oxygen. Continue ceftriaxone and doxycycline Patient out of window for Tamiflu DuoNebs p.r.n. Trending pulse oximetry and ready for discharge Recommended repeat chest x-ray/CT scan to ensure improvement in the pulmonary findings in 4-6 weeks after discharge. Groin pain: Inguinal hernia: CT scan showed inguinal hernia. No significant obstruction noted. General surgery consult for further recommendations MALIK on CKD: Patient baseline creatinine around 1.2 Creatinine on presentation is 1.7 Gentle IV fluids Avoid nephrotoxins Lactic acidosis: Improving Diabetes: Insulin sliding scale DVT prophylaxis: Lovenox Code status: Full code Quality Stroke Does the patient have a stroke diagnosis?: No VTE Prior VTE?: No VTE Risk Level:: Medical - moderate - high VTE Device Contraindication: N/A - Device Ordered VTE Drug Contraindication: N/A - Med Ordered
[2025-01-18] MEDS: Lactated Ringers 1,000 ML 75 ML IVCONT (02:52)
[2025-01-18] MEDS: Enoxaparin Sodium 40 MG/0.4 ML SYRINGE SUBCUT (02:52)
[2025-01-18 04:22] LABS: Glucose, Whole Blood 175 mg/dL (60-115)
[2025-01-18 06:08] LABS: MANUAL DIFF FLAG NO
[2025-01-18 06:12] LABS: Basophils Percent Auto 0.2 % (0-2); Eosinophils Percent Auto 0.1 % (0-4); Hematocrit 33.6 % (42.0-52.0); Hemoglobin 11.5 g/dl (14.0-18.0); Imm Gran Abs Auto 0.03 X10*3/uL (0.00-0.03); Imm Gran Pct Auto 0.3 % (0.0-0.4); Lymphocytes Absolute Auto 1.2 X10*3/uL (1.2-4.9); Mean Corpuscular HGB Conc 34.2 g/dl (31.0-36.0); Mean Corpuscular Hemoglobin 31.1 pg (27.0-33.0); Mean Corpuscular Volume 90.8 fL (80.0-98.0); Mean Platelet Volume 10.9 fL (9.4-12.4); Monocytes Absolute Auto 0.3 X10*3/uL (0.1-1.2); Monocytes Percent Auto 3.2 % (2-11); Neutrophils Absolute Auto 8.6 x10*3/uL (2.0-8.3); Neutrophils Percent Auto 84.2 % (45-73); Platelet Count 119 X10*3/uL (160-400); White Blood Count 10.3 X10*3/uL (4.8-10.8)
[2025-01-18] MEDS: Acetaminophen 325 MG TABLET 650 MG PO ×2 (06:28→17:48)
[2025-01-18 06:42] LABS: Alanine Aminotransferase 9 U/L (0-40); Albumin Level 3.6 g/dL (3.5-5.0); Alkaline Phosphatase 42 U/L (39-117); Anion Gap 13 (12-20); Aspartate Amino Transferase 38 U/L (5-37); Bilirubin Total 0.4 mg/dL (0.0-1.0); Blood Urea Nitrogen 23 mg/dL (9-16); Calcium 8.2 mg/dL (8.4-10.2); Carbon Dioxide 21 mmol/L (22-29); Chloride 105 mmol/L (96-108); Creatinine Clr Calc Pharmacy 40.8; Estimated Glomerular Filt Rate 47; Glucose Random 191 mg/dL (60-115); Potassium 4.1 mmol/L (3.3-5.1); Sodium 135 mmol/L (135-145); Total Protein 6.2 g/dL (6.5-8.0)
--- NOTE | 2025-01-18 07:27 | P.CONGS_ITS ---
History of Present Illness Consult details Consult date: 01/18/25 Narrative: In his a very pleasant 74-year-old male who has had upper respiratory issues over the last weeks time and has been diagnosed with pneumonia. He has had significant coughing episodes and developed right groin pain with this. Workup including CT scan of the abdomen pelvis demonstrates a right inguinal hernia. Patient otherwise tolerating a diet. He has regular bowel habits. No other significant GI issues or complaints. Chart was reviewed and patient evaluated PMFSH Past Medical History Medical History (Updated 01/18/25 @ 07:28 by Leno Jackson MD) Fatigue Diabetes mellitus with hyperglycemia, without long-term current use of insulin Refused influenza vaccine Vitamin D deficiency Essential hypertension Dyslipidemia Family History Family History Father Unknown family medical history Mother HTN (hypertension) Diabetes mellitus Sister No problems noted. Daughter No problems noted. Surgical History Surgical History Hx of colonoscopy No pertinent past surgical history Social History Social History Housing: House Alcohol intake: never Patient Tobacco Use Status: Never used Tobacco Smoked in Last 30 Days: No e-Cigarette/Vaping Use: Never Used Use of substances other than those prescribed or required for medical reasons: No Advance Directives: Yes Advance Directives on File: Yes Advance Directives Date on File: 05/16/24 Do you have a plan to hurt others: No Plan Current occupational status: retired Cognitive needs: No Hearing needs: No Vision needs: Yes Meds Allergies Allergy/AdvReac Type Severity Reaction Status Date / Time hydroxyzine AdvReac Unknown cough Verified 01/17/25 19:18 Active Medications: Current Medications Acetaminophen (Acetaminophen 325 Mg Tablet) 650 mg PO Q6H PRN PRN Reason: Pain, Mild 1-3,fever,headache Last Admin: 01/18/25 06:28 Dose: 650 mg Albuterol/Ipratropium (Albuterol/Iprat 2.5/0.5mg 3 Ml Ampul.Neb) 3 ml INHALE RQ4H WHILE AWAKE PRN PRN Reason: Shortness of Breath Calcium Carbonate (Calcium Carbonate 750 Mg Tab.Chew) 750 mg PO Q4H PRN PRN Reason: Heartburn Ceftriaxone Sodium (Ceftriaxone Sodium 1 Gm Vial) 1 gm IVPUSH Q24H NOY Dextrose (Dextrose 50 % 25 Gm/50 Ml Syringe) 25 gm IVPUSH Q15M PRN; Protocol PRN Reason: per Hypoglycemia Standing Ord. Doxycycline Monohydrate (Doxycycline Monohydrate 100 Mg Capsule) 100 mg PO BID NOY Enoxaparin Sodium (Enoxaparin Sodium 40 Mg/0.4 Ml Syringe) 40 mg SUBCUT Q24H [facility] Last Admin: 01/18/25 02:52 Dose: 40 mg Glucose (Glucose Gel 15 Gm Gel..Gram.) 15 gm PO Q15M PRN; Protocol PRN Reason: per Hypoglycemia Standing Ord. Lactated Ringer's (Lr) 1,000 mls @ 75 mls/hr IVCONT .[id number] [facility] Last Admin: 01/18/25 02:52 Dose: 75 mls/hr Insulin Human Lispro (Insulin Lispro 100 Unit/Ml 3 Ml Vial) 0 unit SUBCUT QIDACHS [facility]; Protocol Last Admin: 01/18/25 07:25 Dose: Not Given Magnesium Hydroxide (Milk Of Magnesia 30 Ml Oral.Susp) 30 ml PO DAILY PRN PRN Reason: Constipation Melatonin (Melatonin 3 Mg Tablet) 6 mg PO BEDTIME PRN PRN Reason: Insomnia Sodium Chloride (0.9 % Sodium Chloride Flush 3 Ml Syringe) 3 ml IVFLUSH QSHIFT [facility] Physical Exam 2 Vital Signs: Vital Signs: Last Vital Signs Temp 99.2 F 01/18/25 01:36 Pulse 102 H 01/18/25 06:23 Resp 16 01/18/25 06:23 BP 156/60 H 01/18/25 06:23 Pulse Ox 94 01/18/25 06:23 O2 Del Method Nasal Cannula 01/18/25 06:23 O2 Flow Rate 2 01/18/25 06:23 BMI result Body Mass Index 22.3 GI: Other: Abdomen is soft, benign. Patient has small right inguinal hernia. No evidence of incarceration or strangulation. Results Labs 01/18/25 05:51 01/18/25 05:51 Labs: Abnormal lab results 01/17/25 01/17/25 01/18/25 Range/Units 19:45 19:48 00:35 WBC 10.9 H (4.8-10.8) X10*3/uL RBC 4.11 L (4.60-5.80) X10*6/uL Hgb 13.0 L (14.0-18.0) g/dl Hct 36.9 L (42.0-52.0) % Plt Count 143 L D (160-400) X10*3/uL Neut % (Auto) 81.5 H (45-73) % Lymph % (Auto) 11.4 L (20-40) % Abs Immat Gran (auto) 0.04 H (0.00-0.03) X10*3/uL Absolute Neuts (auto) 8.9 H (2.0-8.3) x10*3/uL Carbon Dioxide 21 L (22-29) mmol/L BUN 30 H (9-16) mg/dL Creatinine 1.77 H (0.5-1.4) mg/dL POC Glucose 175 H (60-115) mg/dL Random Glucose 224 H (60-115) mg/dL Lactic Acid 2.7 H* (0.5-2.0) mmol/L Calcium (8.4-10.2) mg/dL AST (5-37) U/L C-Reactive Protein 3.85 H (< or = 0.50) mg/dL Total Protein (6.5-8.0) g/dL Urine Protein 30 (1+) H (Neg-Trace) mg/dL Urine Blood Trace H (Negative) Ur Leukocyte Esterase Moderate (2+) H (Negative) Influenza Type B (PCR) POSITIVE A (Negative) 01/18/25 Range/Units 05:51 WBC (4.8-10.8) X10*3/uL RBC 3.70 L (4.60-5.80) X10*6/uL Hgb 11.5 L (14.0-18.0) g/dl Hct 33.6 L (42.0-52.0) % Plt Count 119 L (160-400) X10*3/uL Neut % (Auto) 84.2 H (45-73) % Lymph % (Auto) 12.0 L (20-40) % Abs Immat Gran (auto) (0.00-0.03) X10*3/uL Absolute Neuts (auto) 8.6 H (2.0-8.3) x10*3/uL Carbon Dioxide 21 L (22-29) mmol/L BUN 23 H (9-16) mg/dL Creatinine 1.45 H (0.5-1.4) mg/dL POC Glucose (60-115) mg/dL Random Glucose 191 H (60-115) mg/dL Lactic Acid (0.5-2.0) mmol/L Calcium 8.2 L D (8.4-10.2) mg/dL AST 38 H (5-37) U/L C-Reactive Protein (< or = 0.50) mg/dL Total Protein 6.2 L (6.5-8.0) g/dL Urine Protein (Neg-Trace) mg/dL Urine Blood (Negative) Ur Leukocyte Esterase (Negative) Influenza Type B (PCR) (Negative) Short CBC 01/17/25 01/18/25 Range/Units 19:45 05:51 WBC 10.9 H 10.3 (4.8-10.8) X10*3/uL Hgb 13.0 L 11.5 L (14.0-18.0) g/dl Hct 36.9 L 33.6 L (42.0-52.0) % Plt Count 143 L D 119 L (160-400) X10*3/uL BMP 01/17/25 01/18/25 19:45 05:51 Sodium 135 135 Potassium 4.2 4.1 Chloride 103 105 Carbon Dioxide 21 L 21 L BUN 30 H 23 H Creatinine 1.77 H 1.45 H Calcium 9.0 D 8.2 L D Liver Function 01/17/25 01/18/25 Range/Units 19:45 05:51 Total Bilirubin 0.6 0.4 (0.0-1.0) mg/dL AST 36 38 H (5-37) U/L ALT 15 9 (0-40) U/L Alkaline Phosphatase 54 42 (39-117) U/L Albumin 4.3 3.6 (3.5-5.0) g/dL Urine 01/17/25 Range/Units 19:48 Urine Color Yellow Urine Appearance Cloudy Urine pH 5.0 (5.0-9.0) Ur Specific [place] 1.020 (1.005-1.025) Urine Protein 30 (1+) H (Neg-Trace) mg/dL Urine Glucose (UA) Negative (Negative) mg/dL All other labs normal. Assessment and Plan (1) Right inguinal hernia: Status: Acute Plan Current recommendation is with the patient was convalesced from his current respiratory issue and he can be followed up in the office as an outpatient for elective repair of his symptomatic right inguinal hernia. All questions answered. Plan as noted above. Procedures Date of Service Date of Service: 01/18/25
[2025-01-18 08:10] LABS: Glucose, Whole Blood 196 mg/dL (60-115)
--- NOTE | 2025-01-18 08:12 | PHA.MEDREC ---
Addendum entered by Aidan Yadav [facility] 01/18/25 08:33: Reviewed by [facility] Original Note: Pharmacy Consult ? Medication Reconciliation Pharmacy has completed the medication reconciliation. Over night nurse 'confirmed' med rec stating med rec done with pt and daughter at [facility]. Confirmed pt only taking 2 medications metformin 1000mg BID and losartan 12.5mg . Looking in claims the patient had filled Atorvastatin 20mg tabs 11/15/24 for 90 days, Pioglitazone 15mg 11/17/24 for 90 days and a Jardiance 10mg tab filled yesterday 01/17/25. I went and spoke with patient and he confirmed he takes the Atorvastatin 20mg tab three times a week on Mondays, Wednesdays and Fridays and confirmed he took it yesterday. Patient confirmed he is taking the Pioglitasone 15mg tab once a day. When I asked about the Jardiance 10mg the patient stated he never got to start that medication yesterday. The patient states he last took his medications yesterday and was agitated he had not gotten any medications yet this morning.
[2025-01-18] MEDS: 0.9 % Sodium Chloride Flush 3 ML SYRINGE IVFLUSH ×3 (09:02→21:20)
--- NOTE | 2025-01-18 09:05 | PC.NURSE ---
Spoke with MD Montgomery, maintenance fluids d/c and pt's diet will be advanced.
[2025-01-18] MEDS: Losartan Potassium 50 MG TABLET 100 MG PO (09:11)
[2025-01-18] MEDS: hydroCHLOROthiazide 12.5 MG TABLET PO (09:11)
[2025-01-18] MEDS: Doxycycline Monohydrate 100 MG CAPSULE PO ×2 (09:11→21:16)
--- NOTE | 2025-01-18 10:55 | MHC.CM.PN ---
CM met with Patient and his /HCP/Anjali, at bedside, in the ED, and addressed IMM with hem (original was given to Patient and a copy will be placed on the chart). Patient lives in a house with his and he is functionally independent. Home/self care is the Patient's goal and CM has initiated and will follow for dc planning. PCP is Dr. Navas and will transport to home at time of dc.
--- NOTE | 2025-01-18 11:39 | HO.PM.IMPN ---
Subjective Subjective Date of Service: 01/18/25 Interval History: rlq pain improved Physical Exam Vital Signs: Vital Signs: Last Vital Signs Temp 98.4 F 01/18/25 09:04 Pulse 83 01/18/25 09:04 Resp 16 01/18/25 09:04 BP 137/56 L 01/18/25 09:11 Pulse Ox 88 L 01/18/25 09:04 O2 Del Method Room Air 01/18/25 09:04 O2 Flow Rate 2 01/18/25 06:23 BMI result Body Mass Index 22.3 General: AO X 3, no acute distress Resp: CTA bilateral, no accessory muscles used CVS: S1,S2,RRR GI: soft, non tender, non distended Neuro: motor grossly intact, alert Psych: appropriate affect, appropriate insight Objective Data Active Medications Acetaminophen (Acetaminophen 325 Mg Tablet) 650 mg PO Q6H PRN PRN Reason: Pain, Mild 1-3,fever,headache Last Admin: 01/18/25 06:28 Dose: 650 mg Documented By: ASHELY Albuterol/Ipratropium (Albuterol/Iprat 2.5/0.5mg 3 Ml Ampul.Neb) 3 ml INHALE RQ4H WHILE AWAKE PRN PRN Reason: Shortness of Breath Calcium Carbonate (Calcium Carbonate 750 Mg Tab.Chew) 750 mg PO Q4H PRN PRN Reason: Heartburn Ceftriaxone Sodium (Ceftriaxone Sodium 1 Gm Vial) 1 gm IVPUSH Q24H [facility] Dextrose (Dextrose 50 % 25 Gm/50 Ml Syringe) 25 gm IVPUSH Q15M PRN; Protocol PRN Reason: per Hypoglycemia Standing Ord. Doxycycline Monohydrate (Doxycycline Monohydrate 100 Mg Capsule) 100 mg PO BID [facility] Last Admin: 01/18/25 09:11 Dose: 100 mg Documented By: VANESA Enoxaparin Sodium (Enoxaparin Sodium 40 Mg/0.4 Ml Syringe) 40 mg SUBCUT Q24H [facility] Last Admin: 01/18/25 02:52 Dose: 40 mg Documented By: ASHELY Glucose (Glucose Gel 15 Gm Gel..Gram.) 15 gm PO Q15M PRN; Protocol PRN Reason: per Hypoglycemia Standing Ord. Hydrochlorothiazide (Hydrochlorothiazide 12.5 Mg Tablet) 12.5 mg PO DAILY [facility] Last Admin: 01/18/25 09:11 Dose: 12.5 mg Documented By: VANESA Lactated Ringer's (Lr) 1,000 mls @ 75 mls/hr IVCONT .[id number] [facility] Last Infusion: 01/18/25 08:56 Dose: Infused Documented By: VANESA Insulin Human Lispro (Insulin Lispro 100 Unit/Ml 3 Ml Vial) 0 unit SUBCUT QIDACHS [facility]; Protocol Last Admin: 01/18/25 07:25 Dose: Not Given Documented By: VANESA Non-Admin Reason: See Note Comments: Dietary gave pt his clear liquid tray prior to preforming a glucose check. Glucose 196 AFTER pt ate his tray. MD Montgomery made aware. Losartan Potassium (Losartan Potassium 50 Mg Tablet) 100 mg PO QD [facility] Last Admin: 01/18/25 09:11 Dose: 100 mg Documented By: VANESA Magnesium Hydroxide (Milk Of Magnesia 30 Ml Oral.Susp) 30 ml PO DAILY PRN PRN Reason: Constipation Melatonin (Melatonin 3 Mg Tablet) 6 mg PO BEDTIME PRN PRN Reason: Insomnia Sodium Chloride (0.9 % Sodium Chloride Flush 3 Ml Syringe) 3 ml IVFLUSH QSHIFT [facility] Last Admin: 01/18/25 09:02 Dose: 3 ml Documented By: VANESA Labs 01/18/25 05:51 01/18/25 05:51 Labs: Laboratory Results - last 24 hr 01/17/25 01/17/25 01/17/25 19:45 19:48 22:04 MCV 89.8 MCH 31.6 MCHC 35.2 RDW 13.2 Plt Count 143 L D MPV 10.5 Immature Gran % (Auto) 0.4 Neut % (Auto) 81.5 H Lymph % (Auto) 11.4 L [place] % (Auto) 6.5 Eos % (Auto) 0.1 Baso % (Auto) 0.1 Lymph # (Auto) 1.2 [place] # (Auto) 0.7 Eos # (Auto) 0.0 Baso # (Auto) 0.0 Abs Immat Gran (auto) 0.04 H Absolute Neuts (auto) 8.9 H Absolute Nucleated RBC 0.000 Nucleated RBC % (auto) 0.0 Anion Gap 15 Estim Creat Clear Calc 33.4 Estimated GFR 38 POC Glucose Random Glucose 224 H Lactic Acid 2.7 H* Lactic Acid F/U @ 2Hr 1.3 Calcium 9.0 D Total Bilirubin 0.6 AST 36 ALT 15 Alkaline Phosphatase 54 C-Reactive Protein 3.85 H Total Protein 7.4 Albumin 4.3 Lipase 35 Urine Color Yellow Urine Appearance Cloudy Urine pH 5.0 Ur Specific [place] 1.020 Urine Protein 30 (1+) H Urine Glucose (UA) Negative Urine Ketones Trace Urine Blood Trace H Urine Nitrite Negative Ur Leukocyte Esterase Moderate (2+) H Urine RBC 0-2 Urine WBC 0-5 Ur Squamous Epith Cells 3-5 Urine Bacteria None Seen Hyaline Casts 6-10 Influenza Type A (PCR) NEGATIVE Influenza Type B (PCR) POSITIVE A RSV RNA Qual (PCR) NEGATIVE SARS-CoV-2 RNA (RT-PCR) NEGATIVE S. pyogenes GrpA JEOVANNY Negative 01/18/25 01/18/25 01/18/25 00:35 05:51 07:20 MCV 90.8 MCH 31.1 MCHC 34.2 RDW 13.0 Plt Count 119 L MPV 10.9 Immature Gran % (Auto) 0.3 Neut % (Auto) 84.2 H Lymph % (Auto) 12.0 L [place] % (Auto) 3.2 Eos % (Auto) 0.1 Baso % (Auto) 0.2 Lymph # (Auto) 1.2 [place] # (Auto) 0.3 Eos # (Auto) 0.0 Baso # (Auto) 0.0 Abs Immat Gran (auto) 0.03 Absolute Neuts (auto) 8.6 H Absolute Nucleated RBC 0.000 Nucleated RBC % (auto) 0.0 Anion Gap 13 Estim Creat Clear Calc 40.8 Estimated GFR 47 POC Glucose 175 H 196 H Random Glucose 191 H Lactic Acid Lactic Acid F/U @ 2Hr Calcium 8.2 L D Total Bilirubin 0.4 AST 38 H ALT 9 Alkaline Phosphatase 42 C-Reactive Protein Total Protein 6.2 L Albumin 3.6 Lipase Urine Color Urine Appearance Urine pH Ur Specific [place] Urine Protein Urine Glucose (UA) Urine Ketones Urine Blood Urine Nitrite Ur Leukocyte Esterase Urine RBC Urine WBC Ur Squamous Epith Cells Urine Bacteria Hyaline Casts Influenza Type A (PCR) Influenza Type B (PCR) RSV RNA Qual (PCR) SARS-CoV-2 RNA (RT-PCR) S. pyogenes GrpA JEOVANNY Assessment and Plan (1) Essential hypertension: Status: Acute Plan 74M PMH hypertension, hyperlipidemia, diabetes, CKD 3 presented with cough and shortness of breath and right lower quadrant abdominal pain Acute hypoxic respiratory failure secondary to flu B with superimposed left lower lobe pneumonia Will cover g positives including MRSA, ceftriaxone and doxycycline Check MRSA swab DuoNebs, wean O2 as tolerated Right inguinal hernia Surgery appreciated, outpatient follow up MALIK and CKD 3 Improved to baseline with IV fluids Diabetes Insulin sliding scale hold oral Acute lactic acidosis Due to hypoxia nebulizers and metformin not sepsis Hypertension Continue losartan DVT prophylaxis with Lovenox Full code reason for continued hospitalization: hypoxia Quality Stroke Does the patient have a stroke diagnosis?: No VTE Prior VTE?: No VTE Risk Level:: Medical - moderate - high VTE Device Contraindication: N/A - Device Ordered VTE Drug Contraindication: N/A - Med Ordered
[2025-01-18] MEDS: Insulin Lispro 100 UNIT/ML 3 ML VIAL SUBCUT ×2 (13:08→17:48)
[2025-01-18 13:18] LABS: Glucose, Whole Blood 230 mg/dL (60-115)
[2025-01-18 15:59] LABS: MRSA Nasal PCR NEGATIVE (Negative); SA Nasal PCR NEGATIVE (Negative)
[2025-01-18 16:54] LABS: Glucose, Whole Blood 156 mg/dL (60-115)
[2025-01-18] MEDS: guaiFENesin 200 MG/10 ML 10 ML LIQUID PO (17:48)
[2025-01-18 21:57] LABS: Glucose, Whole Blood 126 mg/dL (60-115)
[2025-01-19] MEDS: cefTRIAXone sodium 1 GM VIAL IVPUSH (00:33)
[2025-01-19] MEDS: Enoxaparin Sodium 40 MG/0.4 ML SYRINGE SUBCUT (02:17)
[2025-01-19 03:14] VITALS: BP 127/67; PULSE 80; RESP 20; TEMP 36.7; O2SAT 98
[2025-01-19 07:46] VITALS: BP 131/55; PULSE 74; RESP 18; TEMP 37.2; O2SAT 95
[2025-01-19 08:16] LABS: Glucose, Whole Blood 125 mg/dL (60-115)
[2025-01-19] MEDS: Atorvastatin Calcium 20 MG TABLET PO (09:04)
[2025-01-19] MEDS: hydroCHLOROthiazide 12.5 MG TABLET PO (09:04)
[2025-01-19] MEDS: Doxycycline Monohydrate 100 MG CAPSULE PO (09:04)
[2025-01-19] MEDS: Losartan Potassium 50 MG TABLET 100 MG PO (09:04)
[2025-01-19] MEDS: 0.9 % Sodium Chloride Flush 3 ML SYRINGE IVFLUSH (09:05)
--- NOTE | 2025-01-19 10:24 | P.DS_ITS ---
DS: Providers Provider Date of Service: 01/19/25 Date of admission: 01/18/25 02:30 Date of discharge: 01/19/25 Primary care physician: Saira Navas MD Consults: 01/18/25 02:35 Consult to General Surgery Routine Consulting Provider[place] [facility] Reason for consultation: groin pain; hernia DS: Diagnosis Discharge Diagnosis (1) Essential hypertension: Status: Acute DS: Summary Hospital Course Hospital Course: from initial hpi: 74-year-old male with a past medical history of HTN, HLD, dm, CKD presented to the hospital today with a chief complaint of cough and shortness of breath. Patient reports that for about a week he has been having upper respiratory symptoms. For the past couple days he has been having fevers and chills. Reports having cough without any sputum production. Denies any chest pain or palpitations. Reports that whenever he coughs he has severe groin pain. Denies any scrotal pain. Denies any numbness tingling or focal weakness. Denies any GI or symptoms. Review of all other systems is negative except mentioned above ER course: Per ER physician, patient on presentation noted to be severely coughing has been hypoxic to 87%, placed on supplemental oxygen at 2 L. Not in respiratory distress. No significant wheezing on examination. Chest x-ray showed no acute cardiopulmonary process. Patient tested positive for influenza A. CT abdomen pelvis showed left lower lobe pneumonia and also noted to have left groin inguinal hernia. Patient was given ceftriaxone doxycycline. hospital course: Patient was admitted for acute hypoxic respiratory failure secondary to influenza B with superimposed bacterial left lower lobe pneumonia. Was initially covered for MRSA and other g positives with ceftriaxone and doxycycline, MRSA swab was negative. Was given DuoNebs and eventually weaned off oxygen. Patient is feeling much better but continues to be febrile. Ideally would continue to monitor until afebrile however patient would like to continue remainder of treatment at home. Will be discharged on 5 more days of Ceftin and doxycycline. For right inguinal hernia was seen by surgery who recommended outpatient follow up for possible repair. For acute kidney injury on CKD 3 improved with IV fluids. For diabetes was continued on insulin sliding scale. Acute lactic acidosis was due to hypoxia nebulizers and metformin not sepsis. For hypertension was continued on losartan. Time Attestation Discharge Coordination Time (in mins): 37 Quality: Safe Use of Opioids Does Pt have an Active Cancer Diagnosis on the Problem List?: No Quality: Stroke Does the patient have a stroke diagnosis?: No Physical Exam Vital Signs: Vital Signs: Last Vital Signs Temp 98.9 F 01/19/25 07:46 Pulse 74 01/19/25 07:46 Resp 18 01/19/25 07:46 BP 131/55 L 01/19/25 07:46 Pulse Ox 95 01/19/25 07:46 O2 Del Method Nasal Cannula 01/19/25 07:46 O2 Flow Rate 2 01/19/25 07:46 BMI result Body Mass Index 22.3 General: AO X 3, no acute distress Resp: CTA bilateral, no accessory muscles used CVS: S1,S2,RRR GI: soft, non tender, non distended Neuro: motor grossly intact, alert Psych: appropriate affect, appropriate insight DS: Data Data Completed and Pending Labs on day of discharge: Laboratory Results - last 24 hr 01/18/25 01/18/25 01/18/25 13:01 14:07 16:40 POC Glucose 230 H 156 H Nasal Screen MRSA (PCR) NEGATIVE Nasal S. aureus Screen NEGATIVE Nasal MRSA/S.aureus Interp SEE NOTE 01/18/25 01/19/25 20:56 07:13 POC Glucose 126 H 125 H Nasal Screen MRSA (PCR) Nasal S. aureus Screen Nasal MRSA/S.aureus Interp Preliminary micro results at discharge 01/17/25 20:05 Urine Culture - Preliminary Urine clean catch - Clean Catch Midstream No growth to date. Discharge Plan Discharge Anticipated Discharge Date/Time: 01/19/25 10:22 Patient Disposition: Home, Self-Care Discharge Diagnosis: post flu pna, hernia Referrals: Saira Navas MD [Primary Care Provider] - 1 Week Leno Jackson MD [Physician] - 1 Week Discharge Medications: New doxycycline monohydrate 100 mg Capsule 100 mg PO BID Qty: 10 0RF cefuroxime axetil 500 mg tablet 500 mg PO BID Qty: 10 0RF Continued pioglitazone 15 mg tablet 15 mg PO DAILY Qty: 90 1RF atorvastatin 20 mg tablet 20 mg PO MOWEFR (DME) FreeStyle Lite Strips Strip See Rx Instructions .ROUTE .MEDSUPPLY Qty: 100 4RF Rx Instructions: check blood sugar once a day (DME) lancets [FreeStyle Lancets] 28 gauge misc See Rx Instructions .Route Qty: 100 5RF Rx Instructions: As directed once a day before meal losartan-hydrochlorothiazide 100-12.5 mg tablet 1 tab PO DAILY Qty: 90 3RF metformin 1,000 mg tablet 1,000 mg PO BID 90 Days Qty: 180 3RF Discharge Orders: Discharge Order (Routine); Ordered 01/19/25 Ordered By: Jake Montgomery Diet: Advance to usual diet Activity on Discharge: No heavy lifting Stand Alone Forms: Patient Portal Discharge page Print Language: Thai Care Plan Goals: Recovery Health Concerns: Post flu pneumonia, hernia Plan of Treatment: 5 more days of doxycycline and cefuroxime, follow up with surgery for hernia repair Assessment: See above
--- NOTE | 2025-01-19 10:38 | MHC.CM.PN ---
PT CLEARED TO DC HOME TODAY WITH NO SERVICES TO TRANSPORT
== END 2025-01-19 10:54 | disposition home or self-care (01) | DRG 193 ==
LOC: HO.ED 01-18 01:57 → HO.EDOVER 01-18 02:40 → HO.IMC 01-18 15:24
PROVIDERS: Physician Assistant; Admitting Provider Hospitalist; Emergency Provider Emergency Medicine; PCP Internal Medicine; Visit Provider Internal Medicine
DX: J10.08 Influenza due to other identified influenza virus with other specified pneumonia (principal); J96.01 Acute respiratory failure with hypoxia; E87.21 Acute metabolic acidosis; N17.9 Acute kidney failure, unspecified; K40.90 Unilateral inguinal hernia, without obstruction or gangrene, not specified as recurrent; J15.9 Unspecified bacterial pneumonia; I12.9 Hypertensive chronic kidney disease with stage 1 through stage 4 chronic kidney disease, or unspecified chronic kidney disease; N18.30 Chronic kidney disease, stage 3 unspecified; E11.22 Type 2 diabetes mellitus with diabetic chronic kidney disease; Z79.899 Other long term (current) drug therapy
CPT/HCPCS: 0241U; 36415; 71046; 74176; 80053; 81001; 82947; 83605; 83690; 85025; 86140; 87086; 87640; 87641; 87651; 99285; J0131; J0696; J1171; J1650; J7120

== ENCOUNTER → 2025-01-17 19:16 | Outpatient (BNV) | payer MEDICARE, SELFPAY | PROVIDERS: PCP Internal Medicine; Visit Provider Radiology Diagnostic Radiology | DX: K40.90 Unilateral inguinal hernia, without obstruction or gangrene, not specified as recurrent (principal) | CPT/HCPCS: 71046; 74176 ==

== ENCOUNTER → 2025-01-18 02:30 | Outpatient (BNV) | payer MEDICARE, SELFPAY | PROVIDERS: Admitting Provider Hospitalist; Emergency Provider Emergency Medicine; PCP Internal Medicine; Visit Provider Internal Medicine | DX: I10 Essential (primary) hypertension (principal) | CPT/HCPCS: 99239 ==

== ENCOUNTER → 2025-01-18 02:30 | Outpatient (BNV) | payer MEDICARE, SELFPAY | PROVIDERS: Admitting Provider Hospitalist; Emergency Provider Emergency Medicine; PCP Internal Medicine; Visit Provider Surgery | DX: K40.90 Unilateral inguinal hernia, without obstruction or gangrene, not specified as recurrent (principal) | CPT/HCPCS: 99222 ==

== ENCOUNTER 2025-01-31 12:27 | Outpatient (AMB) | payer MEDICARE, SELFPAY ==
--- NOTE | 2025-01-31 12:56 | MHC.PC.OV ---
Vital Signs 01/31/25 13:13 Height 5 ft 8 in Weight 143 lb BMI 21.7 BP 128/70 Blood Pressure Location Rt brachial Position Sitting Respiration 15 Pulse 81 Pulse Source Pulse Oximeter Temp 97.8 F Temp Source Oral Pulse Oximetry (%) 99 Oxygen Delivery Method Room Air Intake Visit Reasons: [facility] [place] pneumonia Intake Note: Pt is here today for his [facility] [place] HDF pneumonia/ pt c/o fatigue and no appetite Allergies hydroxyzine Adverse Reaction (Unknown, Verified 02/04/25 19:41) cough Medication List - Last Reconciled 02/04/25 by Saira Navas MD atorvastatin 20 mg PO MOWEFR blood sugar diagnostic (FreeStyle Lite Strips) check blood sugar once a day lancets (FreeStyle Lancets) As directed once a day before meal losartan-hydrochlorothiazide 100-12.5 mg 1 tab PO DAILY metformin 1,000 mg PO BID 90 days pioglitazone 15 mg PO DAILY Tobacco use date assessed: 01/31/25 Fall risk assessment: No Falls in past year Last assessed Fall Risk: 01/31/25 Dental Screening Dental Screen Date: 01/31/25 Did you have a dental visit in the last 12 months?: Yes Did you have a dental problem in the last 6 months where you did not have access to dental care?: No Was dental information given to patient?: Patient has dentist HPI [facility] [place] pneumonia HPI Details 74 year old male with history of diabetes mellitus, dyslipidemia, hypertension, here today for follow-up after a recent admission at [facility] for acute hypoxic respiratory failure secondary to influenza B with superimposed bacterial left lower lobe pneumonia. He was treated with antibiotics and DuoNeb nebulizer treatments with improvement of symptoms. He was discharged on 5 more days of Ceftin and doxycycline which she has already can completed taking. He also was diagnosed to have right inguinal hernia, and was seen by surgery who advised outpatient follow-up for possible repair. Patient however states that the painful mass on right lower abdomen has resolved, and would like to defer surgical consultation at present. He was given IV fluids for treatment of acute kidney injury on his chronic kidney disease stage 3. He was continued on current treatment for his diabetes and on losartan for blood pressure control. He is accompanied by his today, patient states that he has been feeling better, no further coughing spells no fever, but still feels little weak and still with poor appetite. [facility] Medical History (Updated 02/04/25 @ 20:03 by Saira Navas MD) Anemia Fatigue Diabetes mellitus with hyperglycemia, without long-term current use of insulin Refused influenza vaccine Vitamin D deficiency Essential hypertension Dyslipidemia Surgical History Hx of colonoscopy No pertinent past surgical history Family History Father Unknown family medical history Mother HTN (hypertension) Diabetes mellitus Sister No problems noted. Daughter No problems noted. Social History Household Members: Spouse Housing: House Do you presently have visiting nurse or other home services: No Alcohol intake: never Patient Tobacco Use Status: Never used Tobacco e-Cigarette/Vaping Use: Never Used Advance Directives Date on File: 05/16/24 service: No Current occupational status: retired Cognitive needs: No Hearing needs: No Vision needs: Yes Questionnaire PHQ-9 Over the last 2 weeks, how often have you been bothered by any of the following problems? Depression Screening Interpretation: Negative Depression Screening Done: Yes Source: Developed by Drs. Francisco Norman, Arin Walsh, Kal Timmons and colleagues, with an educational azucena from [employer]. Thrive Questionnaire Date Thrive assessed: 11/15/24 Currently or been in a relationship where the following occur: I choose not to answer THRIVE Score: 0 LESA-7 AMB Questionnaire LESA-7 Date LESA - 7 assessed: 11/15/24 Source: Developed by Drs. Francisco Norman, Arin Walsh, Kal Timmons and colleagues, with an educational azucena from [employer]. Review of Systems Const All systems reviewed & are unremarkable except as noted in HPI and below Physical exam (Primary Care) Vital Signs: Last Vital Signs Temp 97.8 F 01/31/25 13:13 Pulse 81 01/31/25 13:13 Resp 15 01/31/25 13:13 BP 128/70 01/31/25 13:13 Pulse Ox 99 01/31/25 13:13 Oxygen Delivery Method Room Air 01/31/25 13:13 BMI result Body Mass Index 21.7 Tobacco/Smoking Status: Tobacco use Status Tobacco use date assessed 01/31/25 01/31/25 12:58 Patient Tobacco Use Status Never used Tobacco 01/31/25 12:58 e-Cigarette/Vaping Use Never Used 01/31/25 12:58 Depression Screening Interpretation: Negative Thrive Assessment: Date of Thrive Assessment Date Thrive assessed 11/15/24 01/31/25 12:58 Currently or been in a relationship where the following occur: I choose not to answer Const General: comfortable and no acute distress Nutritional Appearance: average body habitus Orientation/consciousness: patient oriented x3 [facility] General nose exam: Normal external nose present Face and sinus: Yes face symmetric Mouth: Normal oral and palatal mucosa present and moist mucous membranes Eyes General: appearance normal, both eyes and all related structures Neck Neck: Yes full ROM, Yes no lymphadenopathy and Yes supple Resp Effort & Inspection: normal respiratory effort and able to speak in complete sentences Auscultation: clear to auscultation bilaterally Cardio Rate: regular rate Rhythm: regular rhythm Heart sounds: S1 normal heart sound present and S2 normal heart sound present GI Other: Normal bowel sounds, soft, nontender, no mass palpated on right lower quadrant, even with Valsalva Auscultation: normal bowel sounds General: Yes no CVA tenderness Male General Exam: Yes normal external exam Back/Spine/Pelvis Back: no CVA tenderness and No back tenderness Skin General skin exam: no rashes or lesions noted Neuro General: patient oriented x3, gait normal, moves all extremities, Normal light touch and pain sensation, no focal motor deficits, CN's II-XI intact bilaterally and normal sensation to monofilament Extrem Other: No gross bone deformity, or joint swelling seen, sensation intact by monofilament testing in both feet General: Yes full ROM, Yes no joint enlargement, Yes no pedal edema and Yes normal gait Psych Mental Status: mental status grossly normal Affect: normal affect Results Reviewed Results Reviewed: Name: Bhavesh James Age/Sex: 74/M : 1950 Unit#: [id number] Attend Dr: Jake Montgomery MD Re01/18/25 Status: DIS IN Location: [facility] 486-1 Disch: 01/19/25 SPEC : [id number] VONNIE: 01/18/25-51 STATUS: COMP REQ : [id number] RECD: 01/18/[address] [facility] [address]: Earnest Milton MD COMP: 01/18/25 ENTERED: 01/18/25 [facility] [address]: Saira Navas MD ORDERED: CBC Auto Diff Test Result Flag Reference WBC 10.3 4.8-10.8 X10*3/uL RBC 3.70 L 4.60-5.80 X10*6/uL HGB 11.5 L 14.0-18.0 g/dl HCT 33.6 L 42.0-52.0 % MCV 90.8 80.0-98.0 fL MCH 31.1 27.0-33.0 pg MCHC 34.2 31.0-36.0 g/dl RDW 13.0 11.0-16.0 % PLT 119 L 160-400 X10*3/uL MPV 10.9 9.4-12.4 fL Neut Pct Auto 84.2 H 45-73 % ImGran Pct Auto 0.3 0.0-0.4 % Lymp Pct Auto 12.0 L 20-40 % Whiteside Pct Auto 3.2 2-11 % Eos Pct Auto 0.1 0-4 % Baso Pct Auto 0.2 0-2 % NRBC Pct Auto 0.0 0.0-0.2 /100WBC ANC Neut Abs # 8.6 H 2.0-8.3 x10*3/uL ImGran Abs Auto 0.03 0.00-0.03 X10*3/uL Lymph Abs Auto 1.2 1.2-4.9 X10*3/uL Whiteside Abs Auto 0.3 0.1-1.2 X10*3/uL Eos Abs Auto 0.0 0.0-0.4 X10*3/uL Baso Abs Auto 0.0 0.0-0.2 X10*3/uL NRBC Abs Auto 0.000 0.0-0.012 X10*3/uL Name: Bhavesh James Age/Sex: 74/M : 1950 Unit#: [id number] Attend Dr: Jake Montgomery MD Re01/18/25 Status: DIS IN Location: [facility] 486-1 Disch: 01/19/25 SPEC : [id number] VONNIE: 01/18/25-550 STATUS: COMP REQ : [id number] RECD: 01/18/25-[address]: Earnest Milton MD COMP: 01/18/25-641 ENTERED: 01/18/25-[address]: Saira Navas MD ORDERED: CMP Test Result Flag Reference Sodium 135 135-145 mmol/L Potassium 4.1 3.3-5.1 mmol/L CL 105 96-108 mmol/L CO2 21 L 22-29 mmol/L Gap 13 12-20 BUN 23 H 9-16 mg/dL Creat 1.45 H 0.5-1.4 mg/dL Estimated CrCl 40.8 eGFR (calculated from the MDRD study equation) and eCrCl (calculated from the Cockcroft-Gault equation) are based on different parameters and may not yield comparable results. If eCrCl result is absurd, please check patient's height/weight. eGFR 47 Chronic Kidney Disease: Estimated GFR < 60 mL/min/1.73m2 Severe Kidney Disease: Estimated GFR < 15 mL/min/1.73m2 Glucose, Random 191 H 60-115 mg/dL CA 8.2 # L 8.4-10.2 mg/dL Total Bili 0.4 0.0-1.0 mg/dL AST (GOT) 38 H 5-37 U/L ALT (GPT) 9 0-40 U/L Protein, Total 6.2 L 6.5-8.0 g/dL Alb 3.6 3.5-5.0 g/dL Alk Phos 42 39-117 U/L Laboratory Tests 11/10/24 08:10 Hemoglobin A1c % 7.0 H Laboratory Tests 11/10/24 08:10 Triglycerides 127 Cholesterol 132 LDL Cholesterol, Calc 72 HDL Cholesterol 35 L Urine Creatinine 142.41 Urine Microalbumin 18.0 Microalb/Creat Ratio 12.6 Coding Level of Care Code Est Pt Level 4 (24903) Complex EM visit Add On G2211 Diagnoses Dyslipidemia E78.5 Essential hypertension I10 Diabetes mellitus with hyperglycemia, without long-term current use of insulin E11.65 Fatigue, unspecified type R53.83 Fatigue type: unspecified Stage 3a chronic kidney disease N18.31 Chronic kidney disease stage 3 subtype: stage 3a (GFR 45-59) Anemia D64.9 Anemia type: due to chronic kidney disease Assessment & Plan Assessment & Plan (1) Dyslipidemia: Code(s): E78.5 - Hyperlipidemia, unspecified Category: Medical Plan: Continue atorvastatin 20 mg 3 times a week (2) Essential hypertension: Code(s): I10 - Essential (primary) hypertension Category: Medical Plan: Blood pressure at goal of less than 130/80. Continue losartan HCTZ 100-12.5 mg taken once a day Reinforced importance of following a low sodium diet, getting regular exercise, and lowering stress levels. (3) Diabetes mellitus with hyperglycemia, without long-term current use of insulin: Code(s): E11.65 - Type 2 diabetes mellitus with hyperglycemia Category: Medical Plan: Continue on metformin a 1000 mg twice a day and pioglitazone 15 mg daily, recheck another hemoglobin A1c in April 2025, urine microalbumin is within normal limits (4) Fatigue: Code(s): R53.83 - Other fatigue Category: Medical Qualifiers: Fatigue type: unspecified Qualified Code(s): R53.83 - Other fatigue Plan: Ordered CBC (5) CKD (chronic kidney disease) stage 3, GFR 30-59 ml/min: Code(s): N18.30 - Chronic kidney disease, stage 3 unspecified Category: Medical Qualifiers: Chronic kidney disease stage 3 subtype: stage 3a (GFR 45-59) Qualified Code(s): N18.31 - Chronic kidney disease, stage 3a Plan: stay well-hydrated, currently followed by Nephrology (6) Anemia: Code(s): D64.9 - Anemia, unspecified Category: Medical Qualifiers: Anemia type: due to chronic kidney disease Plan: Likely due to chronic kidney disease., ordered another CBC friends Orders: Orders Complete Blood Count Auto Diff 04/24/25 D64.9 - Anemia, unspecified, E11.65 - Type 2 diabetes mellitus with hyperglycemia, E78.5 - Hyperlipidemia, unspecified, I10 - Essential (primary) hypertension, N18.31 - Chronic kidney disease, stage 3a, R53.83 - Other fatigue
[2025-01-31 13:13] VITALS: BP 128/70; PULSE 81; RESP 15; TEMP 36.6; O2SAT 99; BMI 21.7
--- OUTSIDE RECORDS SUMMARY | 2025-01-31 14:27 | XMS_ITS | Patient Health Record ---
Author Organization [facility] Address [address] [place] [address] Care Team Providers Care Mohs Surgeon Name Role Phone Eloise BRUMFIELD, Saira Primary Care Provider Sahil Gan Jr [phone] Reason For Referral No Information Medications Medication [...] Problem Status W/U Status Risk Notes Problem [id number] Encounter for long-term (current) use of other medications (V58.69) Active confirmed Problem 799499186 Colon cancer screening (V76.51) Active confirmed Problem 03967825 Type II diabetes mellitus (250.00) Active confirmed Plan Of Treatment Future Test Test Name Order Date COLONOSCOPY 05/02/2014 Next Appt Details Provider Name:Sahil mccarthy , 02/21/2025 11:20:00 AM, [address], [address], [place], [address], Insurance Providers Payer Name Payer Address Payer Phone Subscriber Number Group Number Insured Name Patient Relationship to Insured Coverage Start Date Coverage End Date [facility] [address] [place] [phone] [id number] SULY ODTY Self - patient is the insured Medical (General) History Medical History History ICD Code elevated cholesterol diabetes mellitus
== END 2025-01-31 13:43 | disposition home or self-care (01) ==
PROVIDERS: PCP Internal Medicine; Visit Provider Internal Medicine
DX: E11.65 Type 2 diabetes mellitus with hyperglycemia (principal); I12.9 Hypertensive chronic kidney disease with stage 1 through stage 4 chronic kidney disease, or unspecified chronic kidney disease; N18.31 Chronic kidney disease, stage 3a; E78.5 Hyperlipidemia, unspecified; R53.83 Other fatigue; D64.9 Anemia, unspecified

== ENCOUNTER → 2025-01-31 12:27 | Outpatient (BNVA) | payer MEDICARE, SELFPAY | PROVIDERS: PCP Internal Medicine; Visit Provider Internal Medicine | DX: E78.5 Hyperlipidemia, unspecified (principal); E11.65 Type 2 diabetes mellitus with hyperglycemia; R53.83 Other fatigue; D64.9 Anemia, unspecified; I12.9 Hypertensive chronic kidney disease with stage 1 through stage 4 chronic kidney disease, or unspecified chronic kidney disease; E11.22 Type 2 diabetes mellitus with diabetic chronic kidney disease; N18.31 Chronic kidney disease, stage 3a | CPT/HCPCS: 99212 ==

== ENCOUNTER 2025-04-25 08:06 | Outpatient (REF) | payer MEDICARE, SELFPAY ==
--- OUTSIDE RECORDS SUMMARY | 2025-02-21 07:20 | XMS_ITS ---
Author Organization [facility] Address [address] [place] [phone] Care Team Providers Care Aircraft Shipping Checker Name Role Phone Eloise BRUMFIELD, Saira Primary Care Provider Sahil Gan Jr [phone] REASON FOR VISIT Patient presents today for a olon screening Encounters Encounter Location Date Provider Diagnosis [facility] [address] [facility] [address] [place] [phone] 02/21/2025 Sahil Sy Jr Plan Of Treatment No Information Progress Notes * RONNY DOTYMYLESOB:1950 (74 yo M)Acc No.[id number]:02/21/2025 Progress Notes Patient: SULY RAE Provider: Abiola Sy MD :1950 A ge:74 Y S ex:Male Date:02/21/2025 Address: [address] [facility] Pcp:Saira Navas MD Subjective: * Chief Complaints: [...] 02/21/2025 Generated for Printi ng/Faxing/eTransmitting on: 0 04/25/2025 08:08 AM EDT
[2025-04-25 10:17] LABS: MANUAL DIFF FLAG NO
[2025-04-25 10:21] LABS: Hematocrit 37.1 % (42.0-52.0); Hemoglobin 12.4 g/dl (14.0-18.0); Imm Gran Abs Auto 0.04 X10*3/uL (0.00-0.03); Imm Gran Pct Auto 0.4 % (0.0-0.4); Lymphocytes Absolute Auto 2.3 X10*3/uL (1.2-4.9); Mean Corpuscular HGB Conc 33.4 g/dl (31.0-36.0); Mean Corpuscular Hemoglobin 31.5 pg (27.0-33.0); Mean Corpuscular Volume 94.2 fL (80.0-98.0); NRBC Abs Auto 0.000 X10*3/uL (0.0-0.012); NRBC Pct Auto 0.0 /100WBC (0.0-0.2); Platelet Count 208 X10*3/uL (160-400); Red Blood Count 3.94 X10*6/uL (4.60-5.80); White Blood Count 9.7 X10*3/uL (4.8-10.8)
[2025-04-25 10:40] LABS: Alanine Aminotransferase 10 U/L (0-40); Anion Gap 12 (12-20); Aspartate Amino Transferase 21 U/L (5-37); Blood Urea Nitrogen 30 mg/dL (9-16); Calcium 9.5 mg/dL (8.4-10.2); Carbon Dioxide 23 mmol/L (22-29); Chloride 109 mmol/L (96-108); Cholesterol 141 mg/dL (<200); Estimated Glomerular Filt Rate 50; HDL Cholesterol 38 mg/dL (>40); Potassium 4.3 mmol/L (3.3-5.1); Sodium 140 mmol/L (135-145); Triglycerides 130 mg/dL (<150)
[2025-04-25 10:44] LABS: Hemoglobin A1C 151.0385 umol/L; Total Hemoglobin (HGBA1C) 3300.2262 umol/L
== END 2025-04-25 08:07 | disposition home or self-care (01) ==
LOC: HO.HMGCLDS 08:06
PROVIDERS: PCP Internal Medicine; Visit Provider Internal Medicine
DX: I12.9 Hypertensive chronic kidney disease with stage 1 through stage 4 chronic kidney disease, or unspecified chronic kidney disease (principal); E11.65 Type 2 diabetes mellitus with hyperglycemia; R94.4 Abnormal results of kidney function studies; E78.5 Hyperlipidemia, unspecified; N18.31 Chronic kidney disease, stage 3a; R53.83 Other fatigue; D63.1 Anemia in chronic kidney disease
CPT/HCPCS: 36415; 80048; 80061; 82306; 83036; 84450; 84460; 85025

== ENCOUNTER 2025-05-01 07:58 | Outpatient (AMB) | payer MEDICARE, SELFPAY ==
--- OUTSIDE RECORDS SUMMARY | 2025-02-21 07:20 | XMS_ITS ---
Author Organization [facility] Address [address] [place] [phone] Care Team Providers Care Registered Radiographer Name Role Phone Eloise BRUMFIELD, Saira Primary Care Provider Sahil Gan Jr REASON FOR VISIT Patient presents today for a olon screening Encounters Encounter Location Date Provider Diagnosis [facility] [address] [facility] [address] [place] [phone] 02/21/2025 Sahil Sy Jr Plan Of Treatment No Information Progress Notes * RONNY DOTYMYLESOB:1950 (74 yo M)Acc No.[id number]:02/21/2025 Progress Notes Patient: SULY RAE Provider: Abiola Sy MD :1950 A ge:74 Y S ex:Male Date:02/21/2025 Address: [address] [id number] Pcp:Saira Navas MD Subjective: * Chief Complaints: * 1 . Patient presents today for a olon screening. * Medical History: Objective: * Vitals: Assessment: Plan: * Treatment: * * The named appointment provid er may or may not be the originator of this progress note, and it is not deemed complete until electronically signed by the appointment provider. Sign off status: Pending * Provider: Abiola Sy MD Date: 02/21/2025 Generated for Printi ng/Faxing/eTransmitting on: 0 05/01/2025 08:00 AM EDT
[2025-05-01 08:04] VITALS: BP 134/60; PULSE 66; RESP 16; TEMP 36.5; O2SAT 99; BMI 22.7
--- NOTE | 2025-05-01 08:04 | A.OFFPC_ITS ---
Vital Signs 05/01/25 08:04 Height 5 ft 8 in Weight 149 lb BMI 22.7 BP 134/60 Blood Pressure Location Lt brachial Position Sitting Respiration 16 Pulse 66 Pulse Source Pulse Oximeter Temp 97.7 F Temp Source Oral Pulse Oximetry (%) 99 Oxygen Delivery Method Room Air Intake Visit Reasons: 4m follow up - see comments Intake Note: Pt is here today for 4mo. labs Allergies hydroxyzine Adverse Reaction (Unknown, Verified 05/01/25 08:28) cough Medication List - Last Reconciled 05/01/25 by Saira Navas MD atorvastatin 20 mg PO MOWEFR blood sugar diagnostic (FreeStyle Lite Strips) check blood sugar once a day lancets (FreeStyle Lancets) As directed once a day before meal losartan-hydrochlorothiazide 100-12.5 mg 1 tab PO DAILY metformin 1,000 mg PO BID 90 days pioglitazone 15 mg PO DAILY Tobacco use date assessed: 05/01/25 Fall risk assessment: No Falls in past year Last assessed Fall Risk: 05/01/25 Dental Screening Dental Screen Date: 05/01/25 Did you have a dental visit in the last 12 months?: Yes Did you have a dental problem in the last 6 months where you did not have access to dental care?: No Was dental information given to patient?: Patient has dentist HPI 4m follow up - see comments HPI Details 74-year-old male with history of diabete s mellitus, hypertension dyslipidemia, here today for his follow-up. Has been compliant with taking his medications, has been getting regular exercise. Recent fasting labs showed hemoglobin A1c at 6.3%, with fasting lipid levels within normal limits. Renal function stable, currently followed by Nephrology, with anemia improving. Denies any unusual or abnormal bleeding. [facility] Medical History Anemia Fatigue Diabetes mellitus with hyperglycemia, without long-term current use of insulin Refused influenza vaccine Vitamin D deficiency Essential hypertension Dyslipidemia Surgical History Hx of colonoscopy No pertinent past surgical history Family History Father Unknown family medical history Mother HTN (hypertension) Diabetes mellitus Sister No problems noted. Daughter No problems noted. Social History Household Members: Spouse Housing: House Do you presently have visiting nurse or other home services: No Alcohol intake: never Patient Tobacco Use Status: Never used Tobacco e-Cigarette/Vaping Use: Never Used Advance Directives Date on File: 05/16/24 service: No Current occupational status: retired Cognitive needs: No Hearing needs: No Vision needs: Yes Questionnaire PHQ-9 Over the last 2 weeks, how often have you been bothered by any of the following problems? 1. Little interest or pleasure in doing things: not at all 2. Feeling down, depressed, or hopeless: not at all 3. Trouble falling or staying asleep, or sleeping too much: not at all 4. Feeling tired or having little energy: not at all 5. Poor appetite or overeating: not at all 6. Feeling bad about yourself - or that you are a failure or have let yourself or your family down: not at all 7. Trouble concentrating on things, such as reading the newspaper or watching television: not at all 8. Moving or speaking so slowly that other people could have noticed. Or the opposite - being so fidgety or restless that you have been moving around a lot more than usual: not at all 9. Thoughts that you would be better off or of hurting yourself in some way: not at all Total score: 0 Depression Screening Interpretation: Negative Depression Screening Done: Yes Source: Developed by Drs. Francisco Norman, Arin Walsh, Kal Timmons and colleagues, with an educational azucena from [employer]. Thrive Questionnaire Date Thrive assessed: 05/01/25 I am a: Patient What is your living situation today?: I have a steady place to live Within the past 12 months, did the food you bought not last and you didn't have the money to get more?: Often true Within the past 12 months, did you worry whether your food would run out before you got money to buy more?: I choose not to answer this question Do you have trouble paying for medicines?: No Do you have trouble getting transportation to medical appointments?: Yes Do you have trouble paying your heating and electricity bill?: No Do you have trouble taking care of your child, family member or friend?: I choose not to answer this question Do you have trouble with day-to-day activities such as bathing, preparing meals, shopping, managing finances, etc.?: I choose not to answer this question Are you currently unemployed and looking for a job?: I choose not to answer this question Are you interested in more education?: I choose not to answer this question Please select the resources that you would like help with: None THRIVE Score: 2 AUDIT C Alcohol Use Questionnaire (AUDIT-C) 1. How often do you have a drink containing alcohol?: Monthly or less 2. How many drinks containing alcohol do you have on a typical day when you are drinking?: 1 or 2 3. How often do you have six or more drinks on one occasion?: Never Total Score: 1 LESA-7 AMB Questionnaire LESA-7 Date LESA - 7 assessed: 11/15/24 Source: Developed by Drs. Francisco Norman, Arin Walsh, Kal Timmons and colleagues, with an educational azucena from [employer]. Review of Systems Const Denies body aches, Denies fever(s), Denies headache(s) and Denies weakness Eyes Denies change in vision ENT Denies dizziness and Denies headache(s) Card Denies chest pain, Denies lightheadedness, Denies palpitations and Denies dyspnea Resp Denies chest congestion, Denies cough, Denies dyspnea and Denies wheezing GI Denies abdominal pain, Denies change in bowel habits and Denies heartburn Denies dysuria, Denies urinary frequency and Denies urinary urgency Musc Denies back pain, Denies myalgias, Denies arthralgias and Denies joint swelling Skin/Breast Denies lesions and Denies rash Neuro Denies dizziness, Denies headache(s) and Denies weakness Psych Reports no additional complaints Endo Denies polydipsia, Denies polyuria and Denies palpitations Roddy/Lymph Reports no additional complaints Aller/Immun Denies seasonal rhinorrhea and Denies wheezing Physical exam (Primary Care) Vital Signs: Last Vital Signs Temp 97.7 F 05/01/25 08:04 Pulse 66 05/01/25 08:04 Resp 16 05/01/25 08:04 BP 134/60 05/01/25 08:04 Pulse Ox 99 05/01/25 08:04 Oxygen Delivery Method Room Air 05/01/25 08:04 BMI result Body Mass Index 22.7 Tobacco/Smoking Status: Tobacco use Status Tobacco use date assessed 05/01/25 05/01/25 08:13 Patient Tobacco Use Status Never used Tobacco 05/01/25 08:05 e-Cigarette/Vaping Use Never Used 05/01/25 08:05 PHQ-9: PHQ-9 Score PHQ-9: Total score 0 05/06/25 18:50 Depression Screening Interpretation: Negative Thrive Assessment: Date of Thrive Assessment Date Thrive assessed 05/01/25 05/01/25 08:05 Const General: comfortable and no acute distress Nutritional Appearance: average body habitus Orientation/consciousness: patient oriented x3 HENMT General nose exam: Normal external nose present Face and sinus: Yes face symmetric Mouth: Normal oral and palatal mucosa present and moist mucous membranes Eyes General: appearance normal, both eyes and all related structures Neck Neck: Yes full ROM, Yes no lymphadenopathy and Yes supple Resp Effort & Inspection: normal respiratory effort and able to speak in complete sentences Auscultation: clear to auscultation bilaterally Cardio Rate: regular rate Rhythm: regular rhythm Heart sounds: S1 normal heart sound present and S2 normal heart sound present GI Auscultation: normal bowel sounds General: Yes no CVA tenderness Male General Exam: Yes normal external exam Back/Spine/Pelvis Back: no CVA tenderness and No back tenderness Skin General skin exam: no rashes or lesions noted Neuro General: patient oriented x3, gait normal, moves all extremities, Normal light touch and pain sensation, no focal motor deficits, CN's II-XI intact bilaterally and normal sensation to monofilament Extrem Other: No gross bone deformity, or joint swelling seen, sensation intact by m onofilament testing in both feet General: Yes full ROM, Yes no joint enlargement, Yes no pedal edema and Yes normal gait Psych Mental Status: mental status grossly normal Affect: normal affect Results Reviewed Results Reviewed: Name: Bhavesh James Age/Sex: 74/M : 1950 Unit#: [id number] Attend Dr: Saira Naavs MD Re04/25/25 Status: DEP REF Location: [facility] Disch: SPEC : [id number] VONNIE: 04/25/25 STATUS: COMP REQ : [id number] RECD: 04/25/[address] [facility] [address]: Saira Navas MD COMP: 04/25/25 ENTERED: 04/25/25 [facility] DR: ORDERED: CBC Auto Diff Test Result Flag Reference WBC 9.7 4.8-10.8 X10*3/uL RBC 3.94 L 4.60-5.80 X10*6/uL HGB 12.4 L 14.0-18.0 g/dl HCT 37.1 L 42.0-52.0 % MCV 94.2 80.0-98.0 fL MCH 31.5 27.0-33.0 pg MCHC 33.4 31.0-36.0 g/dl RDW 13.5 11.0-16.0 % PLT 208 # 160-400 X10*3/uL MPV 11.4 9.4-12.4 fL Neut Pct Auto 60.3 45-73 % ImGran Pct Auto 0.4 0.0-0.4 % Lymp Pct Auto 23.3 20-40 % Appling Pct Auto 7.4 2-11 % Eos Pct Auto 8.1 H 0-4 % Baso Pct Auto 0.5 0-2 % NRBC Pct Auto 0.0 0.0-0.2 /100WBC ANC Neut Abs # 5.8 2.0-8.3 x10*3/uL ImGran Abs Auto 0.04 H 0.00-0.03 X10*3/uL Lymph Abs Auto 2.3 1.2-4.9 X10*3/uL Appling Abs Auto 0.7 0.1-1.2 X10*3/uL Eos Abs Auto 0.8 H 0.0-0.4 X10*3/uL Baso Abs Auto 0.1 0.0-0.2 X10*3/uL NRBC Abs Auto 0.000 0.0-0.012 X10*3/uL Laboratory Tests 04/25/25 08:10 Estimat Average Glucose 134 Hemoglobin A1c % 6.3 H Name: Bhavesh James Shama Age/Sex: 74/M : 1950 Unit#: [id number] Attend Dr: Saira Navas MD Re04/25/25 Status: DEP REF Location: [facility] Disch: SPEC : [id number] VONNIE: 04/25/25 STATUS: COMP REQ : [id number] RECD: 04/25/25-[address]: Saira Navas MD COMP: 04/25/25 ENTERED: 04/25/25 [facility] DR: ORDERED: Met Prof Fast, AST, ALT, Lipid Panel, Vitamin D 25-OH Test Result Flag Reference Sodium 140 135-145 mmol/L Potassium 4.3 3.3-5.1 mmol/L CL 109 H 96-108 mmol/L CO2 23 22-29 mmol/L Gap 12 12-20 BUN 30 H 9-16 mg/dL Creat 1.38 0.5-1.4 mg/dL eGFR 50 Chronic Kidney Disease: Estimated GFR < 60 mL/min/1.73m2 Severe Kidney Disease: Estimated GFR < 15 mL/min/1.73m2 FBS 147 H 60-99 mg/dL A fasting glucose of 126 mg/dl or greater on more than one occasion is considered diagnostic of diabetes. CA 9.5 # 8.4-10.2 mg/dL AST (GOT) 21 5-37 U/L ALT (GPT) 10 0-40 U/L Triglyceride 130 <150 mg/dL Desirable Triglyceride: less than 150 mg/dL Borderline High Triglyceride 150-199 mg/dL High Triglyceride: 200-499 mg/dL Very High Triglyceride: greater than or equal to 5OO mg/dL Cholesterol 141 <200 mg/dL Desirable Cholesterol: less than 200 mg/dL Borderline High Cholesterol: 200-239 mg/dL High Cholesterol: greater than 239 mg/dL LDL Calculated 77 <100 mg/dL Desirable LDL: less than 100 mg/dL Near Optimal/Above Optimal LDL: 110-129 mg/dL Borderline High LDL: 130-159 mg/dL High LDL: 160-189 mg/dL Very High LDL: greater than or equal to 190 mg/dL HDL 38 L >40 mg/dL Desirable HDL: greater than 40 mg/dL Note: This HDL assay may give artificially low results in patients with liver disease. Vitamin D 25-OH 52.2 >30 ng/mL Health Based Reference Values* < 20 ng/mL Deficient 20-30 ng/mL Insufficient > 30 ng/mL Sufficient Coding Level of Care Code Est Pt Level 4 (09555) Diagnoses Essential hypertension I10 Type 2 diabetes mellitus without complication, without long-term current use of insulin E11.9 Dyslipidemia E78.5 Assessment & Plan Assessment & Plan (1) Essential hypertension: Code(s): I10 - Essential (primary) hypertension Category: Medical Plan: Blood pressure at goal of less than 130/80. Continue with current medication. Reinforced importance of following a low sodium diet, getting regular exercise, and lowering stress levels. Currently followed by Nephrology (2) Type 2 diabetes mellitus without complication, without long-term current use of insulin: Code(s): E11.9 - Type 2 diabetes mellitus without complications Category: Medical Plan: Recent lab results reviewed with patient, with sugar and hemoglobin A1c stable and at goal . Continue with metformin and pioglitazone at the same dose, continue to check fasting blood sugar at home, maintain log and bring to next appointment for review. Reinforced diabetic diet and regular exercise with patient. Counseled regarding importance of yearly diabetes retinopathy screening. Patient advised to inspect feet daily, for any signs of injury, callus or infection. Compliance with diet and regular exercise again stressed. Blood pressure goal is less than 130/80, goal LDL is less than 100 and goal hemoglobin A1c is less than 7% follow-up appointment made in-5--months, after fasting labs done. (3) Dyslipidemia: Code(s): E78.5 - Hyperlipidemia, unspecified Category: Medical Plan: Continue with atorvastatin 20 mg 3 times a week. Recent fasting lipids are within normal limits. Orders: Orders Lipid Panel 10/13/25 E11.9 - Type 2 diabetes mellitus without complications, I10 - Essential (primary) hypertension Hemoglobin A1c 10/13/25 E11.9 - Type 2 diabetes mellitus without complications, I10 - Essential (primary) hypertension Microalbumin, Random (w Creat) 10/13/25 E11.9 - Type 2 diabetes mellitus without complications, I10 - Essential (primary) hypertension Aspartate Amino Transferase 10/13/25 E11.9 - Type 2 diabetes mellitus without complications, I10 - Essential (primary) hypertension Vitamin D 25-OH Total 10/13/25 E11.9 - Type 2 diabetes mellitus without complications, I10 - Essential (primary) hypertension Alanine Aminotransferase 10/13/25 E11.9 - Type 2 diabetes mellitus without complications, I10 - Essential (primary) hypertension PSA,Total (Free>4and<10) 10/13/25 E11.9 - Type 2 diabetes mellitus without complications, I10 - Essential (primary) hypertension Basic Metabolic Panel Fasting 10/13/25 E11.9 - Type 2 diabetes mellitus without complications, I10 - Essential (primary) hypertension Medications: Changed From atorvastatin 20 mg PO MOWEFR To atorvastatin 20 mg PO MOWEFR 39 tabs 3RF 3 months Refilled losartan-hydrochlorothiazide 100-12.5 mg 1 tab PO DAILY 90 tabs 3RF metformin 1,000 mg PO BID 180 tabs 3RF 90 days pioglitazone 15 mg PO DAILY 90 tabs 3RF E11.65 - Type 2 diabetes mellitus with hyperglycemia
== END 2025-05-01 08:49 | disposition home or self-care (01) ==
LOC: HO.HMCC 07:59
PROVIDERS: PCP Internal Medicine; Visit Provider Internal Medicine
DX: I10 Essential (primary) hypertension (principal); E11.9 Type 2 diabetes mellitus without complications; E78.5 Hyperlipidemia, unspecified

== ENCOUNTER → 2025-05-01 07:58 | Outpatient (BNVA) | payer MEDICARE, SELFPAY | PROVIDERS: PCP Internal Medicine; Visit Provider Internal Medicine | DX: E11.9 Type 2 diabetes mellitus without complications (principal); E78.5 Hyperlipidemia, unspecified; I10 Essential (primary) hypertension | CPT/HCPCS: 96127; 99212 ==

== ENCOUNTER 2025-05-14 08:01 | Outpatient (REF) | payer MEDICARE, SELFPAY ==
--- OUTSIDE RECORDS SUMMARY | 2025-02-21 07:20 | XMS_ITS ---
Author Organization [facility] Address [address] [place] [phone] Care Team Providers Care Medical Record Transcriber Name Role Phone Eloise BRUMFIELD, Saira Primary Care Provider Sahil Gan Jr REASON FOR VISIT Patient presents today for a olon screening Encounters Encounter Location Date Provider Diagnosis [facility] [address] [facility] [address] [place] [phone] 02/21/2025 Sahil Sy Jr Plan Of Treatment No Information Progress Notes * RONNY DOTYMYLESOB:1950 (75 yo M)Acc No.[id number]:02/21/2025 Progress Notes Patient: SULY RAE Provider: Abiola Sy MD :1950 A ge:74 Y S ex:Male Date:02/21/2025 Address: [address] [facility] Pcp:Saira Navas MD Subjective: * Chief Complaints: [...] 02/21/2025 Generated for Printi ng/Faxing/eTransmitting on: 0 05/14/2025 08:04 AM EDT
[2025-05-14 10:28] LABS: Hemoglobin A1C 151.6842 umol/L; Total Hemoglobin (HGBA1C) 3306.4627 umol/L
[2025-05-14 10:35] LABS: Anion Gap 14 (12-20); Blood Urea Nitrogen 30 mg/dL (9-16); Carbon Dioxide 21 mmol/L (22-29); Chloride 112 mmol/L (96-108); Estimated Glomerular Filt Rate 52; Potassium 4.4 mmol/L (3.3-5.1); Sodium 143 mmol/L (135-145)
[2025-05-14 11:00] LABS: Protein/Creatinine Ratio, Ur 0.06 (<0.2); Total Protein Urine Random 9 mg/dL (<12)
== END 2025-05-14 08:02 | disposition home or self-care (01) ==
LOC: HO.HMGCLDS 08:01
PROVIDERS: Internal Medicine Nephrology; PCP Internal Medicine; Visit Provider Internal Medicine
DX: N18.31 Chronic kidney disease, stage 3a (principal); I10 Essential (primary) hypertension
CPT/HCPCS: 36415; 80051; 82565; 82570; 83036; 84156; 84520

== ENCOUNTER 2025-05-18 09:14 | Outpatient (AMB) | payer MEDICARE, SELFPAY ==
--- OUTSIDE RECORDS SUMMARY | 2025-02-21 07:20 | XMS_ITS ---
Author Organization [facility] Address [address] [place] [phone] Care Team Providers Care Frame Bander Name Role Phone Eloise BRUMFIELD, Saira Primary Care Provider Sahil Gan Jr REASON FOR VISIT Patient presents today for a olon screening Encounters Encounter Location Date Provider Diagnosis [facility] [address] [facility] [address] [place] [phone] 02/21/2025 Sahil Sy Jr Plan Of Treatment No Information Progress Notes * RONNY DOTYMYLESOB:1950 (75 yo M)Acc No.[id number]:02/21/2025 Progress Notes Patient: SULY RAE Provider: Abiola Sy MD :1950 A ge:74 Y S ex:Male Date:02/21/2025 Address: [address] [facility] Pcp:Saira Navas MD Subjective: * Chief Complaints: [...] 02/21/2025 Generated for Printi ng/Faxing/eTransmitting on: 0 05/18/2025 09:29 AM EDT
--- NOTE | 2025-05-18 09:31 | HO.NEPHOV ---
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 His Hemoglobin A1c is 7.0%, with Metformin as the sole medication after which pioglitazone was added recently. He is not known to have retinopathy or neuropathy. He is known to have hypertension for a long time and has been on losartan/hctz. He does not drink enough water by mouth as per the . He has been taking NSAID''s intermittently. He has been having steady mild rise in creatinine from baseline over time. He does not have back pain, hypercalcemia, proteinuria, weight loss, night sweats, H/O BPH, H/O malignancies, edema, hematuria, renal stones, UTI's, recurrent sinusitis, photosensitivity, skin rashes, epistaxis, CAD, CVA, carotid stenosis, CHF or PAD. He feels well. [facility] Medical History Anemia Fatigue Diabetes mellitus with hyperglycemia, without long-term current use of insulin Refused influenza vaccine Vitamin D deficiency Essential hypertension Dyslipidemia Surgical History Hx of colonoscopy No pertinent past surgical history Family History Father Unknown family medical history Mother HTN (hypertension) Diabetes mellitus Sister No problems noted. Daughter No problems noted. Social History Household Members: Spouse Housing: House Do you presently have visiting nurse or other home services: No Alcohol intake: never Patient Tobacco Use Status: Never used Tobacco e-Cigarette/Vaping Use: Never Used Advance Directives Date on File: 05/16/24 service: No Current occupational status: retired Cognitive needs: No Hearing needs: No Vision needs: Yes Review of Systems Const All systems reviewed & are unremarkable except as noted in HPI and below Physical Exam Vital Signs: Last Vital Signs Pulse 66 05/18/25 09:32 BP 134/60 05/18/25 09:32 Pulse Ox 98 05/18/25 09:32 Oxygen Delivery Method Room Air 05/18/25 09:32 BMI result Body Mass Index 22.1 Const General: comfortable and no acute distress Orientation/consciousness: patient oriented x3 HEENT Head: Yes normocephalic Mouth: Normal oral and palatal mucosa present Eyes EOM: EOMs intact bilaterally Neck Neck: Yes supple Resp Auscultation: clear to auscultation bilaterally Cardio Jugular venous distension: no JVD Rate: regular rate GI Palpation (GI): Soft to palpation Auscultation: normal bowel sounds General: Yes no CVA tenderness Back/Spine/Pelvis Back: no CVA tenderness Skin General skin exam: no rashes or lesions noted Neuro General: patient oriented x3 and moves all extremities Extrem General: Yes no pedal edema Results Reviewed Nephrology Results: Hgb, (14.0-18.0) 12.4 g/dl L 04/25/25 WBC, (4.8-10.8) 9.7 X10*3/uL 04/25/25 Plt Count, (160-400) 208 X10*3/uL Δ 04/25/25 Sodium, (135-145) 143 mmol/L 05/14/25 Potassium, (3.3-5.1) 4.4 mmol/L 05/14/25 Chloride, (96-108) 112 mmol/L H 05/14/25 Carbon Dioxide, (22-29) 21 mmol/L L 05/14/25 BUN, (9-16) 30 mg/dL H 05/14/25 Creatinine, (0.5-1.4) 1.33 mg/dL 05/14/25 Calcium, (8.4-10.2) 9.5 mg/dL Δ 04/25/25 Urine Protein, (Neg-Trace) 30 (1+) mg/dL H 01/17/25 Urine Creatinine 163.17 mg/dL 05/14/25 Protein/Creatinin Ratio, (<0.2) 0.06 05/14/25 Renal US 01/11/25 Assessment & Plan Assessment & Plan (1) Essential hypertension: Code(s): I10 - Essential (primary) hypertension Category: Medical (2) CKD (chronic kidney disease) stage 3, GFR 30-59 ml/min: Code(s): N18.30 - Chronic kidney disease, stage 3 unspecified Category: Medical Qualifiers: Chronic kidney disease stage 3 subtype: stage 3a (GFR 45-59) Qualified Code(s): N18.31 - Chronic kidney disease, stage 3a Plan Bhavesh has CKD likely from vascular disease/hypertension along with loss of GFR with aging. He has been on ARB/HCTZ . He has stopped NSAID's. Renal USS along with Doppler of renal arteries were normal. His serum creatinine has settled to baseline . He should continue Jardiance 10 mg . All questions answered. Follow up given Orders: Orders Protein Creatinine Ratio, Ur 6 Months I10 - Essential (primary) hypertension, N18.31 - Chronic kidney disease, stage 3a Creatinine 6 Months I10 - Essential (primary) hypertension, N18.31 - Chronic kidney disease, stage 3a Blood Urea Nitrogen 6 Months I10 - Essential (primary) hypertension, N18.31 - Chronic kidney disease, stage 3a Electrolytes 6 Months I10 - Essential (primary) hypertension, N18.31 - Chronic kidney disease, stage 3a Coding Level of Care Code Est Pt Level 4 (28830) Diagnoses Essential hypertension I10 Stage 3a chronic kidney disease N18.31 Chronic kidney disease stage 3 subtype: stage 3a (GFR 45-59)
[2025-05-18 09:32] VITALS: BP 134/60; PULSE 66; O2SAT 98; BMI 22.1
== END 2025-05-18 09:54 | disposition home or self-care (01) ==
LOC: HO.HKA 09:14
PROVIDERS: PCP Internal Medicine; Visit Provider Internal Medicine Nephrology
DX: I10 Essential (primary) hypertension (principal); N18.31 Chronic kidney disease, stage 3a
CPT/HCPCS: 99214

== ENCOUNTER → 2025-05-18 09:14 | Outpatient (BNVA) | payer MEDICARE, SELFPAY | PROVIDERS: PCP Internal Medicine; Visit Provider Internal Medicine Nephrology | DX: I10 Essential (primary) hypertension (principal); N18.31 Chronic kidney disease, stage 3a; R94.4 Abnormal results of kidney function studies | CPT/HCPCS: 99212 ==

== ENCOUNTER 2025-10-22 08:01 | Outpatient (REF) | payer MEDICARE, SELFPAY ==
--- OUTSIDE RECORDS SUMMARY | 2025-10-22 08:05 | XMS_ITS | Patient Health Record ---
Author Organization [facility] Address [address] [place] [address] Care Team Providers Care Manager Printing Name Role Phone Saira Navas MD Primary Care Provider Sahil Gan Jr Reason For Referral No Information Medications Medication SIG (Take, Route, Frequency, Duration) Notes Start Date End Date Status MoviPrep 100 GM Solution Reconstituted as directed before colonoscopy Orally; Duration: 1 dose 05/02/2014 Active Atorvastatin Calcium 20 MG Tablet 1 tablet Orally Once a day Active metFORMIN HCl 500 MG Tablet TAKE 1 TABLE T WITH MEALS TWICE A DAY ORALLY Oral; Duration: 90 Active Social History Social History Additional Details Category Social Info Options Details Miscellaneous: Marital status: Occupation: [employer] TECHNICIAN Problems Problem Type SNOMED Code ICD Code Onset Dates Problem Status W/U Status Risk Notes Problem Long-term current use of drug therapy (314708147) Encounter for long-term (current) use of other medications (V58.69) Active confirmed Problem Colon cancer screening (515168769) Colon cancer screening (V76.51) Active confirmed Problem Type II diabetes mellitus (48868938) Type II diabetes mellitus (250.00) Active confirmed Encounters Encounter Location Date Provider Diagnosis [facility] [address] [place] [address] 02/19/2025 Sahil Sy Jr Plan Of Treatment Future Test Test Name Order Date COLONOSCOPY 05/02/2014 Insurance Providers Payer Name Payer Address Payer Phone Subscriber Number Group Number Insured Name Patient Relationship to Insured Coverage Start Date Coverage End Date [facility] [address] [place] [phone] [id number] SULY DOTY Self - patient is the insured Medical (General) History Medical History History ICD Code elevated cholesterol diabetes mellitus
[2025-10-22 10:57] LABS: Microalbum/Creatinine Ratio Ur 10.3 ug/mg cr (<30)
[2025-10-22 11:05] LABS: Alanine Aminotransferase 12 U/L (0-40); Anion Gap 12 (12-20); Aspartate Amino Transferase 23 U/L (5-37); Blood Urea Nitrogen 32 mg/dL (9-16); Calcium 9.7 mg/dL (8.4-10.2); Carbon Dioxide 24 mmol/L (22-29); Chloride 109 mmol/L (96-108); Cholesterol 160 mg/dL (<200); Estimated Glomerular Filt Rate 48; HDL Cholesterol 40 mg/dL (>40); Potassium 4.6 mmol/L (3.3-5.1); Sodium 140 mmol/L (135-145); Triglycerides 131 mg/dL (<150)
[2025-10-22 11:14] LABS: PSA,Total (Free>4and<10) 2.84 ng/mL (0.00-4.00)
== END 2025-10-22 08:02 | disposition home or self-care (01) ==
LOC: HO.HMGCLDS 08:01
PROVIDERS: PCP Internal Medicine; Visit Provider Internal Medicine
DX: I10 Essential (primary) hypertension (principal); E11.9 Type 2 diabetes mellitus without complications; Z12.5 Encounter for screening for malignant neoplasm of prostate; Z13.21 Encounter for screening for nutritional disorder
CPT/HCPCS: 36415; 80048; 80061; 82043; 82306; 82570; 83036; 84153; 84450; 84460